=== PATIENT | female | born 1970 | race American Indian/Alaskan Native ===

== ENCOUNTER 2018-03-11 06:42 | Emergency (ER) | payer MEDICAID ==
[2018-03-11 07:19] VITALS: BP 144/98
[2018-03-11 07:51] LABS: Basophils # (Auto) 0.1 K/mm3 (0.0-0.1); Eosinophils # (Auto) 0.1 K/mm3 (0.0-0.4); Eosinophils % (Auto) 0.9 % (0.0-4.3); Hematocrit 42.1 % (30.3-42.9); Lymphocytes # (Auto) 1.6 K/mm3 (1.2-5.4); Mean Corpuscular HGB Conc 33 % (30-34); Mean Corpuscular Hemoglobin 28 pg (28-32); Mean Corpuscular Volume 85 fl (79-97); Monocytes # (Auto) 0.5 K/mm3 (0.0-0.8); Monocytes % (Auto) 6.7 % (0.0-7.3); Platelet Count 262 K/mm3 (140-440); Red Blood Count 4.96 M/mm3 (3.65-5.03); Red Cell Distribution Width 14.1 % (13.2-15.2)
[2018-03-11 08:23] LABS: Bacteria,Urine 1+ /HPF (Negative); Bilirubin,Urine NEG (Negative); Blood,Urine NEG (Negative); Color,Urine Yellow (Yellow); Mucus,Urine FEW /HPF; Protein,Urine <15 mg/dL mg/dL (Negative)
[2018-03-11 08:46] LABS: Alanine Aminotransferase 21 units/L (7-56); Albumin 3.5 g/dL (3.9-5); BUN/Creatinine Ratio 9; Blood Urea Nitrogen 7 mg/dL (7-17); Calcium 8.6 mg/dL (8.4-10.2); Hemolysis Index 5; Lipase 15 units/L (13-60)
[2018-03-11] MEDS ORDERED: ZOFRAN ODT PO ONE (09:20)
[2018-03-11] MEDS ORDERED: LEVAQUIN PO ONE (09:20)
--- NOTE | 2018-03-11 09:24 | Emergency Department Report ---
ED General Adult HPI - General Chief complaint: Hyperglycemia Stated complaint: SUGAR HIGH Time Seen by Provider: 03/11/18 08:55 Source: patient Mode of arrival: Ambulatory Limitations: No Limitations - History of Present Illness Initial comments: Patient is a 47 year-old female who is presenting with fatigue and nausea with lower abdominal and back cramping discomfort for approximately 1 week. Patient denies dysuria but states there is some urinary frequency. Patient has some aching in her lower back and some mild suprapubic discomfort. Patient denies any diarrhea fevers chills cough congestion at this time. Patient states the lower abdominal and back crampiness is 4 out of 10 in severity. Patient is diabetic so she's been taking her medicines as prescribed. - Related Data Home Medications Medication Instructions Recorded Confirmed Last Taken Insulin Glargine [Lantus] 18 unit SUB-Q QHS 09/18/14 01/04/16 07/22/15 22:00 Insulin Lispro [Humalog] 10 unit SQ AC 09/18/14 01/04/16 07/23/15 09:00 Lisinopril [Zestril] 20 mg PO QDAY 09/18/14 01/04/16 09/26/15 Levothyroxine [Synthroid] 150 mcg PO QAM 08/17/15 01/10/16 01/10/16 08:00 Simvastatin [Zocor TAB] 20 mg PO QHS 08/17/15 01/04/16 09/27/15 Previous Rx's Medication Instructions Recorded Last Taken Type Ferrous Sulfate [Feosol 325 MG tab] 325 mg PO BID #60 tablet 09/28/15 01/09/16 Rx Ibuprofen [Motrin 600 MG tab] 600 mg PO Q8H PRN #30 tablet 01/11/16 Unknown Rx oxyCODONE /ACETAMINOPHEN [Percocet 1 tab PO Q6HR PRN #30 tablet 01/11/16 Unknown Rx 5/325] Sulfamethoxazole/Trimethoprim 1 each PO BID #14 tablet 01/23/16 Unknown Rx [Bactrim DS TAB] traMADol [Ultram] 50 mg PO Q8HR PRN #15 tablet 01/23/16 Unknown Rx Ciprofloxacin HCl [Cipro] 500 mg PO BID #14 tablet 03/11/18 Unknown Rx Ibuprofen [Motrin] 600 mg PO Q8H PRN #20 tablet 03/11/18 Unknown Rx traMADol [Ultram] 50 mg PO Q6HR PRN #10 tablet 03/11/18 Unknown Rx Allergies Allergy/AdvReac Type Severity Reaction Status Date / Time No Known Allergies Allergy Unverified 01/04/16 15:33 ED Review of Systems ROS: Stated complaint: SUGAR HIGH Other details as noted in HPI Comment: All other systems reviewed and negative ED Past Medical Hx - Past Medical History Previous Medical History?: Yes Hx Hypertension: Yes (x 2 years) Hx Diabetes: Yes (x 3 years) Hx GERD: Yes (past hx) Hx Renal Disease: No Hx Sickle Cell Disease: Yes (trait only) Hx Arthritis: Yes Hx Headaches / Migraines: Yes Hx Seizures: No Hx Asthma: No Additional medical history: THYROIDANEMIAGOITER - Surgical History Past Surgical History?: Yes Additional Surgical History: X 2. hysterectomy - Social History Smoking Status: Former Smoker Substance Use Type: Marijuana, Prescribed - Medications Home Medications: Home Medications Medication Instructions Recorded Confirmed Last Taken Type Insulin Glargine [Lantus] 18 unit SUB-Q QHS 09/18/14 01/04/16 07/22/15 22:00 History Insulin Lispro [Humalog] 10 unit SQ AC 09/18/14 01/04/16 07/23/15 09:00 History Lisinopril [Zestril] 20 mg PO QDAY 09/18/14 01/04/16 09/26/15 History Levothyroxine [Synthroid] 150 mcg PO QAM 08/17/15 01/10/16 01/10/16 08:00 History Simvastatin [Zocor TAB] 20 mg PO QHS 08/17/15 01/04/16 09/27/15 History Ferrous Sulfate [Feosol 325 MG tab] 325 mg PO BID #60 tablet 09/28/15 01/10/16 01/09/16 Rx Ibuprofen [Motrin 600 MG tab] 600 mg PO Q8H PRN #30 tablet 01/11/16 Unknown Rx oxyCODONE /ACETAMINOPHEN [Percocet 1 tab PO Q6HR PRN #30 tablet 01/11/16 Unknown Rx 5/325] Sulfamethoxazole/Trimethoprim 1 each PO BID #14 tablet 01/23/16 Unknown Rx [Bactrim DS TAB] traMADol [Ultram] 50 mg PO Q8HR PRN #15 tablet 01/23/16 Unknown Rx Ciprofloxacin HCl [Cipro] 500 mg PO BID #14 tablet 03/11/18 Unknown Rx Ibuprofen [Motrin] 600 mg PO Q8H PRN #20 tablet 03/11/18 Unknown Rx traMADol [Ultram] 50 mg PO Q6HR PRN #10 tablet 03/11/18 Unknown Rx ED Physical Exam - General Limitations: No Limitations General appearance: alert, in no apparent distress - Head Head exam: Present: atraumatic, normocephalic - Eye Eye exam: Present: normal appearance - ENT ENT exam: Present: mucous membranes moist - Neck Neck exam: Present: normal inspection - Respiratory Respiratory exam: Present: normal lung sounds bilaterally. Absent: respiratory distress, wheezes, rales, rhonchi - Cardiovascular Cardiovascular Exam: Present: regular rate, normal rhythm. Absent: systolic murmur, diastolic murmur, rubs, gallop - GI/Abdominal GI/Abdominal exam: Present: soft, normal bowel sounds. Absent: distended, tenderness, guarding, rebound - Extremities Exam Extremities exam: Present: normal inspection - Back Exam Back exam: Present: normal inspection - Neurological Exam Neurological exam: Present: alert, oriented X3 - Psychiatric Psychiatric exam: Present: normal affect, normal mood - Skin Skin exam: Present: warm, dry, intact, normal color. Absent: rash ED Course Vital Signs 03/11/18 07:15 Temperature 98.2 F Pulse Rate 68 Respiratory 18 Rate Blood Pressure 144/98 O2 Sat by Pulse 96 Oximetry ED Medical Decision Making - Lab Data Result diagrams: 03/11/18 07:30 03/11/18 07:30 Lab Results 03/11/18 03/11/18 03/11/18 Range/Units 07:25 07:30 07:30 WBC 8.1 (4.5-11.0) K/mm3 RBC 4.96 (3.65-5.03) M/mm3 Hgb 14.0 (10.1-14.3) gm/dl Hct 42.1 (30.3-42.9) % MCV 85 (79-97) fl MCH 28 (28-32) pg MCHC 33 (30-34) % RDW 14.1 (13.2-15.2) % Plt Count 262 (140-440) K/mm3 Lymph % (Auto) 20.0 (13.4-35.0) % [place] % (Auto) 6.7 (0.0-7.3) % Eos % (Auto) 0.9 (0.0-4.3) % Baso % (Auto) 1.0 (0.0-1.8) % Lymph # 1.6 (1.2-5.4) K/mm3 [place] # 0.5 (0.0-0.8) K/mm3 Eos # 0.1 (0.0-0.4) K/mm3 Baso # 0.1 (0.0-0.1) K/mm3 Seg Neutrophils % 71.4 H (40.0-70.0) % Seg Neutrophils # 5.8 (1.8-7.7) K/mm3 Sodium 138 (137-145) mmol/L Potassium 4.0 (3.6-5.0) mmol/L Chloride 102.4 (98-107) mmol/L Carbon Dioxide 30 (22-30) mmol/L Anion Gap 10 mmol/L BUN 7 (7-17) mg/dL Creatinine 0.8 (0.7-1.2) mg/dL Estimated GFR > 60 ml/min BUN/Creatinine Ratio 9 % Glucose 187 H (65-100) mg/dL POC Glucose 186 H (70-105) Calcium 8.6 (8.4-10.2) mg/dL Total Bilirubin 0.80 (0.1-1.2) mg/dL AST 25 (5-40) units/L ALT 21 (7-56) units/L Alkaline Phosphatase 66 (35-129) units/L Total Protein 7.3 (6.3-8.2) g/dL Albumin 3.5 L (3.9-5) g/dL Albumin/Globulin Ratio 0.9 % Lipase 15 (13-60) units/L Urine Color (Yellow) Urine Turbidity (Clear) Urine pH (5.0-7.0) Ur Specific [place] (1.003-1.030) Urine Protein (Negative) mg/dL Urine Glucose (UA) (Negative) mg/dL Urine Ketones (Negative) mg/dL Urine Blood (Negative) Urine Nitrite (Negative) Urine Bilirubin (Negative) Urine Urobilinogen (<2.0) mg/dL Ur Leukocyte Esterase (Negative) Urine WBC (Auto) (0.0-6.0) /HPF Urine RBC (Auto) (0.0-6.0) /HPF U Epithel Cells (Auto) (0-13.0) /HPF Urine Bacteria (Auto) (Negative) /HPF Urine Mucus /HPF 03/11/18 Range/Units 08:04 WBC (4.5-11.0) K/mm3 RBC (3.65-5.03) M/mm3 Hgb (10.1-14.3) gm/dl Hct (30.3-42.9) % MCV (79-97) fl MCH (28-32) pg MCHC (30-34) % RDW (13.2-15.2) % Plt Count (140-440) K/mm3 Lymph % (Auto) (13.4-35.0) % [place] % (Auto) (0.0-7.3) % Eos % (Auto) (0.0-4.3) % Baso % (Auto) (0.0-1.8) % Lymph # (1.2-5.4) K/mm3 [place] # (0.0-0.8) K/mm3 Eos # (0.0-0.4) K/mm3 Baso # (0.0-0.1) K/mm3 Seg Neutrophils % (40.0-70.0) % Seg Neutrophils # (1.8-7.7) K/mm3 Sodium (137-145) mmol/L Potassium (3.6-5.0) mmol/L Chloride (98-107) mmol/L Carbon Dioxide (22-30) mmol/L Anion Gap mmol/L BUN (7-17) mg/dL Creatinine (0.7-1.2) mg/dL Estimated GFR ml/min BUN/Creatinine Ratio % Glucose (65-100) mg/dL POC Glucose (70-105) Calcium (8.4-10.2) mg/dL Total Bilirubin (0.1-1.2) mg/dL AST (5-40) units/L ALT (7-56) units/L Alkaline Phosphatase (35-129) units/L Total Protein (6.3-8.2) g/dL Albumin (3.9-5) g/dL Albumin/Globulin Ratio % Lipase (13-60) units/L Urine Color Yellow (Yellow) Urine Turbidity Clear (Clear) Urine pH 7.0 (5.0-7.0) Ur Specific [place] 1.012 (1.003-1.030) Urine Protein <15 mg/dl (Negative) mg/dL Urine Glucose (UA) Neg (Negative) mg/dL Urine Ketones Tr (Negative) mg/dL Urine Blood Neg (Negative) Urine Nitrite Neg (Negative) Urine Bilirubin Neg (Negative) Urine Urobilinogen 2.0 (<2.0) mg/dL Ur Leukocyte Esterase Tr (Negative) Urine WBC (Auto) 11.0 H (0.0-6.0) /HPF Urine RBC (Auto) 2.0 (0.0-6.0) /HPF U Epithel Cells (Auto) 1.0 (0-13.0) /HPF Urine Bacteria (Auto) 1+ (Negative) /HPF Urine Mucus Few /HPF - Medical Decision Making Patient be treated for UTI and be discharged home. Critical care attestation.: If time is entered above; I have spent that time in minutes in the direct care of this critically ill patient, excluding procedure time. ED Disposition Clinical Impression: Acute cystitis Qualifiers: Hematuria presence: without hematuria Qualified Code(s): N30.00 - Acute cystitis without hematuria Disposition: TO HOME OR SELFCARE Is pt being admited?: No Does the pt Need Aspirin: No Condition: Stable Instructions: Urinary Tract Infection in Women (ED) Referrals: PRIMARY CARE, [Primary Care Provider] - 3-5 Days
== END 2018-03-11 09:44 | disposition home or self-care (01) ==
LOC: ED 06:42
DX: N30.00 Acute cystitis without hematuria (principal); E11.65 Type 2 diabetes mellitus with hyperglycemia; Z79.4 Long term (current) use of insulin; I10 Essential (primary) hypertension; Z90.710 Acquired absence of both cervix and uterus; K21.9 Gastro-esophageal reflux disease without esophagitis; Z87.891 Personal history of nicotine dependence
CPT/HCPCS: 36415; 80053; 81001; 82962; 83690; 85025; 99283; Q0162

== ENCOUNTER 2018-06-15 16:41 | Emergency (ER) | payer MEDICAID ==
[2018-06-15 17:58] LABS: Basophils # (Auto) 0.1 K/mm3 (0.0-0.1); Basophils % (Auto) 0.6 % (0.0-1.8); Eosinophils % (Auto) 0.3 % (0.0-4.3); Hematocrit 44.1 % (30.3-42.9); Hemoglobin 14.6 gm/dl (10.1-14.3); Lymphocytes # (Auto) 1.2 K/mm3 (1.2-5.4); Lymphocytes % (Auto) 12.1 % (13.4-35.0); Mean Corpuscular HGB Conc 33 % (30-34); Mean Corpuscular Hemoglobin 29 pg (28-32); Mean Corpuscular Volume 88 fl (79-97); Monocytes # (Auto) 0.5 K/mm3 (0.0-0.8); Monocytes % (Auto) 5.4 % (0.0-7.3); Platelet Count 199 K/mm3 (140-440); Red Cell Distribution Width 13.8 % (13.2-15.2)
[2018-06-15 18:05] LABS: BUN/Creatinine Ratio 11; Blood Urea Nitrogen 11 mg/dL (7-17); Calcium 9.8 mg/dL (8.4-10.2); Hemolysis Index 5
[2018-06-15 18:06] LABS: Bacteria,Urine 1+ /HPF (Negative); Bilirubin,Urine NEG (Negative); Blood,Urine NEG (Negative); Color,Urine Yellow (Yellow); Mucus,Urine FEW /HPF; Protein,Urine <15 mg/dL mg/dL (Negative); Urobilinogen,Urine < 2.0 mg/dL (<2.0)
[2018-06-15] MEDS ORDERED: HumuLIN R IV ONE ×2 (21:01→23:53)
[2018-06-15] MEDS ORDERED: KEFLEX PO ONE (21:02)
[2018-06-15] MEDS ORDERED: NACL 0.9% 1000 ML 1,000 ML IV ONE ×2 (21:02→23:54)
[2018-06-15] MEDS ORDERED: ZOFRAN IV ONE (21:02)
--- NOTE | 2018-06-15 22:21 | Emergency Department Report ---
ED General Adult HPI - General Chief complaint: Hyperglycemia Stated complaint: DIABETES Time Seen by Provider: 06/15/18 20:52 Source: patient Mode of arrival: Ambulatory Limitations: No Limitations - History of Present Illness Initial comments: 48-year-old female with a past medical history of diabetes currently on insulin and other medical problems presents to the hospital complaints of elevated blood glucose and increased urinary frequency since running out of her insulin 2 days ago. Patient complains of some dysuria. Positive nausea with several episodes of vomiting earlier today. She denies fever or pain. - Related Data Home Medications Medication Instructions Recorded Confirmed Last Taken Lisinopril [Zestril] 20 mg PO QDAY 09/18/14 06/16/18 09/26/15 Levothyroxine [Synthroid] 150 mcg PO QAM 08/17/15 06/16/18 01/10/16 08:00 Simvastatin [Zocor TAB] 20 mg PO QHS 08/17/15 06/16/18 09/27/15 Previous Rx's Medication Instructions Recorded Last Taken Type Ferrous Sulfate [Feosol 325 MG tab] 325 mg PO BID #60 tablet 09/28/15 01/09/16 Rx oxyCODONE /ACETAMINOPHEN [Percocet 1 tab PO Q6HR PRN #30 tablet 01/11/16 Unknown Rx 5/325] traMADol [Ultram] 50 mg PO Q6HR PRN #10 tablet 03/11/18 Unknown Rx Insulin Glargine [Lantus VIAL] 18 unit SUB-Q QHS #30 day 06/16/18 Unknown Rx Insulin Lispro [HumaLOG VIAL] 10 unit SQ AC #30 day 06/16/18 Unknown Rx Syringe and Needle,Insulin,1Ml 1 each MC PRN #60 disp.syrin 06/16/18 Unknown Rx [Insulin Syringe/Needle 1 ML] cephALEXin [Keflex] 500 mg PO Q12HR #14 cap 06/16/18 Unknown Rx Allergies Allergy/AdvReac Type Severity Reaction Status Date / Time No Known Allergies Allergy Unverified 01/04/16 15:33 ED Review of Systems ROS: Stated complaint: DIABETES Other details as noted in HPI Comment: All other systems reviewed and negative ED Past Medical Hx - Past Medical History Hx Hypertension: Yes (x 2 years) Hx Diabetes: Yes (x 3 years) Hx GERD: Yes (past hx) Hx Renal Disease: No Hx Sickle Cell Disease: Yes (trait only) Hx Arthritis: Yes Hx Headaches / Migraines: Yes Hx Seizures: No Hx Asthma: No Additional medical history: THYROIDANEMIAGOITER - Surgical History Additional Surgical History: X 2. hysterectomy - Social History Smoking Status: Never Smoker Substance Use Type: None - Medications Home Medications: Home Medications Medication Instructions Recorded Confirmed Last Taken Type Lisinopril [Zestril] 20 mg PO QDAY 09/18/14 06/16/18 09/26/15 History Levothyroxine [Synthroid] 150 mcg PO QAM 08/17/15 06/16/18 01/10/16 08:00 History Simvastatin [Zocor TAB] 20 mg PO QHS 08/17/15 06/16/18 09/27/15 History Ferrous Sulfate [Feosol 325 MG tab] 325 mg PO BID #60 tablet 09/28/15 06/16/18 01/09/16 Rx oxyCODONE /ACETAMINOPHEN [Percocet 1 tab PO Q6HR PRN #30 tablet 01/11/16 Unknown Rx 5/325] traMADol [Ultram] 50 mg PO Q6HR PRN #10 tablet 03/11/18 06/16/18 Unknown Rx Insulin Glargine [Lantus VIAL] 18 unit SUB-Q QHS #30 day 06/16/18 Unknown Rx Insulin Lispro [HumaLOG VIAL] 10 unit SQ AC #30 day 06/16/18 Unknown Rx Syringe and Needle,Insulin,1Ml 1 each MC PRN #60 disp.syrin 06/16/18 Unknown Rx [Insulin Syringe/Needle 1 ML] cephALEXin [Keflex] 500 mg PO Q12HR #14 cap 06/16/18 Unknown Rx ED Physical Exam - General Limitations: No Limitations - Other Other exam information: General: No limitations, patient is alert in no acute distress Head exam: Atraumatic, normocephalic Eyes exam: Normal appearance, pupils equal reactive to light, extraocular movements intact ENT: Moist mucous membrane, poor dentition Neck exam: thyromegaly, nontender. She also has a large circular mass to angle of the jaw and neck area. This is nontender. No stridor or difficulty swallowing secretions Respiratory exam: Clear to auscultation bilateral, no wheezes, rales, crackles Cardiovascular: Normal rate and rhythm, normal heart sounds Abdomen: Soft, nondistended, and nontender, with normal bowel sounds, no rebound, or guarding Extremity: Full range of motion normal inspection no deformity Back: Normal Inspection, full range of motion, no tenderness Neurologic: Alert, oriented x3, cranial nerves intact, no motor or sensory deficit Psychiatric: normal affect, normal mood Skin: Warm, dry, intact ED Course Vital Signs 06/15/18 06/15/18 06/15/18 17:30 21:20 21:38 Temperature 98.8 F Pulse Rate 81 60 55 L Respiratory 16 17 14 Rate Blood Pressure 132/92 Blood Pressure [Left] O2 Sat by Pulse 100 98 98 Oximetry 06/15/18 06/15/18 06/15/18 21:41 21:45 22:00 Temperature Pulse Rate 93 H 54 L 58 L Respiratory 16 15 9 L Rate Blood Pressure 138/78 129/75 Blood Pressure 118/75 [Left] O2 Sat by Pulse 99 99 97 Oximetry 06/15/18 06/15/18 06/15/18 22:15 22:30 22:42 Temperature Pulse Rate 75 60 60 Respiratory 16 11 L 15 Rate Blood Pressure 139/69 139/69 139/69 Blood Pressure [Left] O2 Sat by Pulse 97 99 98 Oximetry 06/15/18 06/15/18 06/15/18 22:46 23:00 23:16 Temperature Pulse Rate 61 72 96 H Respiratory 13 13 22 Rate Blood Pressure 139/69 139/69 139/69 Blood Pressure [Left] O2 Sat by Pulse 99 99 97 Oximetry 06/15/18 06/15/18 06/16/18 23:30 23:46 00:00 Temperature Pulse Rate 62 68 65 Respiratory 14 13 14 Rate Blood Pressure 139/69 136/83 131/83 Blood Pressure [Left] O2 Sat by Pulse 96 Oximetry 06/16/18 06/16/18 06/16/18 00:15 00:30 00:46 Temperature Pulse Rate 70 71 62 Respiratory 14 14 15 Rate Blood Pressure 123/79 119/75 129/76 Blood Pressure [Left] O2 Sat by Pulse Oximetry 06/16/18 01:00 Temperature Pulse Rate 72 Respiratory 14 Rate Blood Pressure 123/68 Blood Pressure [Left] O2 Sat by Pulse Oximetry ED Medical Decision Making - Lab Data Result diagrams: 06/15/18 17:42 06/15/18 17:42 Lab Results 06/15/18 06/15/18 06/15/18 Range/Units 17:00 17:42 17:42 WBC 9.9 (4.5-11.0) K/mm3 RBC 5.00 (3.65-5.03) M/mm3 Hgb 14.6 H (10.1-14.3) gm/dl Hct 44.1 H (30.3-42.9) % MCV 88 (79-97) fl MCH 29 (28-32) pg MCHC 33 (30-34) % RDW 13.8 (13.2-15.2) % Plt Count 199 (140-440) K/mm3 Lymph % (Auto) 12.1 L (13.4-35.0) % [place] % (Auto) 5.4 (0.0-7.3) % Eos % (Auto) 0.3 (0.0-4.3) % Baso % (Auto) 0.6 (0.0-1.8) % Lymph # 1.2 (1.2-5.4) K/mm3 [place] # 0.5 (0.0-0.8) K/mm3 Eos # 0.0 (0.0-0.4) K/mm3 Baso # 0.1 (0.0-0.1) K/mm3 Seg Neutrophils % 81.6 H (40.0-70.0) % Seg Neutrophils # 8.1 H (1.8-7.7) K/mm3 VBG pH (7.320-7.420) Sodium (137-145) mmol/L Potassium (3.6-5.0) mmol/L Chloride (98-107) mmol/L Carbon Dioxide (22-30) mmol/L Anion Gap mmol/L BUN (7-17) mg/dL Creatinine (0.7-1.2) mg/dL Estimated GFR ml/min BUN/Creatinine Ratio % Glucose (65-100) mg/dL POC Glucose 451 H (70-105) Calcium (8.4-10.2) mg/dL Urine Color Yellow (Yellow) Urine Turbidity Clear (Clear) Urine pH 6.0 (5.0-7.0) Ur Specific [place] 1.022 (1.003-1.030) Urine Protein <15 mg/dl (Negative) mg/dL Urine Glucose (UA) >=500 (Negative) mg/dL Urine Ketones 20 (Negative) mg/dL Urine Blood Neg (Negative) Urine Nitrite Pos (Negative) Urine Bilirubin Neg (Negative) Urine Urobilinogen < 2.0 (<2.0) mg/dL Ur Leukocyte Esterase Tr (Negative) Urine WBC (Auto) 6.0 (0.0-6.0) /HPF Urine RBC (Auto) 6.0 (0.0-6.0) /HPF U Epithel Cells (Auto) 2.0 (0-13.0) /HPF Urine Bacteria (Auto) 1+ (Negative) /HPF Urine Mucus Few /HPF 06/15/18 06/15/18 Range/Units 17:42 17:42 WBC (4.5-11.0) K/mm3 RBC (3.65-5.03) M/mm3 Hgb (10.1-14.3) gm/dl Hct (30.3-42.9) % MCV (79-97) fl MCH (28-32) pg MCHC (30-34) % RDW (13.2-15.2) % Plt Count (140-440) K/mm3 Lymph % (Auto) (13.4-35.0) % [place] % (Auto) (0.0-7.3) % Eos % (Auto) (0.0-4.3) % Baso % (Auto) (0.0-1.8) % Lymph # (1.2-5.4) K/mm3 [place] # (0.0-0.8) K/mm3 Eos # (0.0-0.4) K/mm3 Baso # (0.0-0.1) K/mm3 Seg Neutrophils % (40.0-70.0) % Seg Neutrophils # (1.8-7.7) K/mm3 VBG pH 7.382 (7.320-7.420) Sodium 133 L (137-145) mmol/L Potassium 3.8 (3.6-5.0) mmol/L Chloride 89.7 L (98-107) mmol/L Carbon Dioxide 28 (22-30) mmol/L Anion Gap 19 mmol/L BUN 11 (7-17) mg/dL Creatinine 1.0 (0.7-1.2) mg/dL Estimated GFR > 60 ml/min BUN/Creatinine Ratio 11 % Glucose 551 H* (65-100) mg/dL POC Glucose (70-105) Calcium 9.8 (8.4-10.2) mg/dL Urine Color (Yellow) Urine Turbidity (Clear) Urine pH (5.0-7.0) Ur Specific [place] (1.003-1.030) Urine Protein (Negative) mg/dL Urine Glucose (UA) (Negative) mg/dL Urine Ketones (Negative) mg/dL Urine Blood (Negative) Urine Nitrite (Negative) Urine Bilirubin (Negative) Urine Urobilinogen (<2.0) mg/dL Ur Leukocyte Esterase (Negative) Urine WBC (Auto) (0.0-6.0) /HPF Urine RBC (Auto) (0.0-6.0) /HPF U Epithel Cells (Auto) (0-13.0) /HPF Urine Bacteria (Auto) (Negative) /HPF Urine Mucus /HPF - Medical Decision Making Hyperglycemia Secondary to medication noncompliance No signs of DKA Improvement normal saline and insulin UTI No signs of sepsis By mouth Keflex Meds will be prescribed Left neck mass Patient has been noncompliant with her outpatient follow-up She does not know that her diagnoses and missed her biopsy appointment with [facility] Requesting alternative follow-up providers. - Differential Diagnosis DKA, hyperglycemia, medication compliance, UTI Critical Care Time: No Critical care attestation.: If time is entered above; I have spent that time in minutes in the direct care of this critically ill patient, excluding procedure time. ED Disposition Clinical Impression: Uncontrolled diabetes mellitus, Noncompliance with medication regimen, UTI ( urinary tract infection), Neck mass, Thyromegaly Disposition: [id number] TO HOME OR SELFCARE Is pt being admited?: No Does the pt Need Aspirin: No Condition: Stable Instructions: Urinary Tract Infection in Women (ED), Diabetes Mellitus Type 2 in Adults (ED) Additional Instructions: Take the medication as prescribed. Follow up with your doctor. Return if symptoms worsen as indicated by your discharge instructions Prescriptions: cephALEXin [Keflex] 500 mg PO Q12HR #14 cap Insulin Glargine [Lantus VIAL] 18 unit SUB-Q QHS #30 day Insulin Lispro [HumaLOG VIAL] 10 unit SQ AC #30 day Syringe and Needle,Insulin,1Ml [Insulin Syringe/Needle 1 ML] 1 each PRN #60 disp.radhain Referrals: [facility] [Provider Group] - 3-5 Days [facility] [Outside] - 3-5 Days Time of Disposition: 02:01
[2018-06-16 02:08] VITALS: BP 119/73
== END 2018-06-16 03:38 | disposition home or self-care (01) ==
LOC: ED 16:41
DX: E11.65 Type 2 diabetes mellitus with hyperglycemia (principal); I10 Essential (primary) hypertension; K21.9 Gastro-esophageal reflux disease without esophagitis; D57.1 Sickle-cell disease without crisis; M19.90 Unspecified osteoarthritis, unspecified site; G43.909 Migraine, unspecified, not intractable, without status migrainosus; Z90.710 Acquired absence of both cervix and uterus; Z79.899 Other long term (current) drug therapy
CPT/HCPCS: 36415; 80048; 81001; 82805; 82962; 85025; 96361; 96374; 96375; 96376; 99284; J2405; J7030; J1815

== ENCOUNTER 2021-02-09 16:56 | Emergency (ER) | payer MEDICAID, MEDICARE ==
[2021-02-09] MEDS ORDERED: SODIUM CHLORIDE 0.9% 1000 ML 1,000 ML IV ONE ×2 (21:49)
[2021-02-09] MEDS ORDERED: ONDANSETRON 4 MG/2 ML INJ IV ONE (21:49)
[2021-02-09] MEDS ORDERED: FAMOTIDINE 20 MG/2 ML INJ IV ONE (21:49)
[2021-02-09 22:09] LABS: Basophils # (Auto) 0.1 K/mm3 (0.0-0.1); Basophils % (Auto) 1.2 % (0.0-1.8); Eosinophils # (Auto) 0.1 K/mm3 (0.0-0.4); Eosinophils % (Auto) 1.3 % (0.0-4.3); Hemoglobin 13.4 gm/dl (10.1-14.3); Lymphocytes % (Auto) 22.6 % (13.4-35.0); Mean Corpuscular HGB Conc 34 % (30-34); Mean Corpuscular Volume 88 fl (79-97); Monocytes # (Auto) 0.3 K/mm3 (0.0-0.8); Monocytes % (Auto) 5.8 % (0.0-7.3); Platelet Count 142 K/mm3 (140-440); Red Blood Count 4.54 M/mm3 (3.65-5.03); Red Cell Distribution Width 14.1 % (13.2-15.2)
[2021-02-09 22:30] LABS: Alanine Aminotransferase 53 units/L (7-56); Albumin 4.1 g/dL (3.9-5); BUN/Creatinine Ratio 10; Blood Urea Nitrogen 8 mg/dL (7-17); Calcium 9.2 mg/dL (8.4-10.2); Hemolysis Index 4
[2021-02-09] MEDS ORDERED: hydrALAZINE 20 MG/1 ML INJ IV ONE (23:15)
--- NOTE | 2021-02-09 23:17 | Emergency Department Report ---
ED General Adult HPI - General Chief complaint: Hyperglycemia Stated complaint: DIABETES PUI?: No Time Seen by Provider: 02/09/21 22:59 Source: patient Mode of arrival: Ambulatory Limitations: No Limitations - History of Present Illness Initial comments: Patient is a 50-year-old female that presents emergency room with complaints of elevated blood sugars and elevated blood blood pressure. Patient denies chest pain. Patient denies shortness of breath. Patient denies nausea vomiting. Patient denies pain. Patient states that she ran out of her medications 2 to 3 days ago. Patient states she just moved here from [place]. Patient states she has not found a primary care or somebody to manage her blood pressure and diabe zay. Patient states that her blood sugars are worsening. Patient dates her blood pressure is worsening. Patient denies headache. Patient denies blurry vision. Patient denies fever and chills. Patient also complains of edema to the bilateral lower extremities. Patient denies pain in legs. Patient denies calf tenderness. Patient states swelling been going on for about 1.5 months ago. Patient states the pain swelling is better with rest and elevation. Patient states swelling is worse with leaving it low. Patient denies recent travel. Patient denies recent international travel. Sangeeta ent denies exposure to the novel coronavirus. Patient denies sick contacts. Patient denies fever and chills. Patient denies cough. Patient denies diarrhea. Patient denies coming in contact with anybody with symptoms of the novel coronavirus. -: Sudden Severity scale (0 -10): 0 - Related Data Home Medications Medication Instructions Recorded Confirmed Last Taken lisinopriL [Zestril] 20 mg PO QDAY 09/18/14 06/16/18 09/26/15 Levothyroxine [Synthroid] 150 mcg PO QAM 08/17/15 06/16/18 01/10/16 08:00 Simvastatin (Nf) [Zocor TAB] 20 mg PO QHS 08/17/15 06/16/18 09/27/15 Previous Rx's Medication Instructions Recorded Last Taken Type Ferrous Sulfate [Feosol 325 MG tab] 325 mg PO BID #60 tablet 09/28/15 01/09/16 Rx oxyCODONE /ACETAMINOPHEN [Percocet 1 tab PO Q6HR PRN #30 tablet 01/11/16 Unknown Rx 5/325] traMADoL [Ultram] 50 mg PO Q6HR PRN #10 tablet 03/11/18 Unknown Rx Insulin Lispro [HumaLOG VIAL] 10 unit SQ AC #30 day 06/16/18 Unknown Rx cephALEXin [Keflex] 500 mg PO Q12HR #14 cap 06/16/18 Unknown Rx Gabapentin 300 mg PO TID #60 cap 02/10/21 Unknown Rx Insulin Aspart (Nf) [Novolog] 10 unit SQ AC #1 vial 02/10/21 Unknown Rx Insulin Glargine [Lantus VIAL] 22 unit SUB-Q QHS #30 day 02/10/21 Unknown Rx Lisinopril/Hydrochlorothiazide 1 tab PO QDAY #15 tab 02/10/21 Unknown Rx [Zestoretic 20-25 mg] Syringe and Needle,Insulin,1Ml 1 each MC PRN #60 disp.syrin 02/10/21 Unknown Rx [Insulin Syringe/Needle 1 ML] Allergies Allergy/AdvReac Type Severity Reaction Status Date / Time No Known Allergies Allergy Verified 02/09/21 17:18 ED Review of Systems ROS: Stated complaint: DIABETES Other details as noted in HPI ED Past Medical Hx - Past Medical History Hx Hypertension: Yes (x 2 years) Hx Diabetes: Yes (x 3 years) Hx GERD: Yes (past hx) Hx Renal Disease: No Hx Sickle Cell Disease: Yes (trait only) Hx Arthritis: Yes Hx Headaches / Migraines: Yes Hx Seizures: No Hx Asthma: No Additional medical history: THYROIDANEMIAGOITER - Surgical History Additional Surgical History: X 2. hysterectomy - Social History Smoking Status: Never Smoker Substance Use Type: None - Medications Home Medications: Home Medications Medication Instructions Recorded Confirmed Last Taken Type lisinopriL [Zestril] 20 mg PO QDAY 09/18/14 06/16/18 09/26/15 History Levothyroxine [Synthroid] 150 mcg PO QAM 08/17/15 06/16/18 01/10/16 08:00 History Simvastatin (Nf) [Zocor TAB] 20 mg PO QHS 08/17/15 06/16/18 09/27/15 History Ferrous Sulfate [Feosol 325 MG tab] 325 mg PO BID #60 tablet 09/28/15 06/16/18 01/09/16 Rx oxyCODONE /ACETAMINOPHEN [Percocet 1 tab PO Q6HR PRN #30 tablet 01/11/1606/16 Unknown Rx 5/325] traMADoL [Ultram] 50 mg PO Q6HR PRN #10 tablet 03/11/18 06/16/18 Unknown Rx Insulin Lispro [HumaLOG VIAL] 10 unit SQ AC #30 day 06/16/18 Unknown Rx cephALEXin [Keflex] 500 mg PO Q12HR #14 cap 06/16/18 Unknown Rx Gabapentin 300 mg PO TID #60 cap 02/10/21 Unknown Rx Insulin Aspart (Nf) [Novolog] 10 unit SQ AC #1 vial 02/10/21 Unknown Rx Insulin Glargine [Lantus VIAL] 22 unit SUB-Q QHS #30 day 02/10/21 Unknown Rx Lisinopril/Hydrochlorothiazide 1 tab PO QDAY #15 tab 02/10/21 Unknown Rx [Zestoretic 20-25 mg] Syringe and Needle,Insulin,1Ml 1 each MC PRN #60 disp.syrin 02/10/21 Unknown Rx [Insulin Syringe/Needle 1 ML] ED Physical Exam - General Limitations: No Limitations ED Course Vital Signs 02/09/21 02/09/21 02/09/21 17:21 17:22 22:54 Temperature 97.3 F L Pulse Rate 83 Respiratory 22 15 Rate Blood Pressure 179/109 O2 Sat by Pulse 95 99 Oximetry 02/09/21 02/09/21 02/09/21 23:01 23:15 23:25 Temperature Pulse Rate 79 78 80 Respiratory 12 11 L 9 L Rate Blood Pressure 179/113 179/113 179/113 O2 Sat by Pulse 99 100 99 Oximetry 02/09/21 02/09/21 02/10/21 23:30 23:45 00:06 Temperature Pulse Rate 77 89 Respiratory 14 13 Rate Blood Pressure 190/112 190/112 190/112 O2 Sat by Pulse 98 99 92 Oximetry 02/10/21 02/10/21 02/10/21 00:15 00:31 00:45 Temperature Pulse Rate 91 H 92 H 90 Respiratory 10 L 19 16 Rate Blood Pressure 190/112 157/107 157/107 O2 Sat by Pulse 99 99 98 Oximetry 02/10/21 02/10/21 01:01 01:15 Temperature Pulse Rate 86 82 Respiratory 14 10 L Rate Blood Pressure 159/103 159/103 O2 Sat by Pulse 97 99 Oximetry - Reevaluation(s) Reevaluation #1: Patient swelling has improved. Patient states he is feeling much better. Patient's blood pressure is better. Patient's lung sounds are clear. Patient states she needs a refill of medications. Patient states that she is taking Lantus 22 units at night, NovoLog 10 units before AC meals, lisinopril/HCTZ 20/25 daily, gabapentin 300 mg 3 times a day. 02/10/21 01:45 Reevaluation #2: I discussed all results and clinical findings with patient. I discussed plan of care with patient. Patient agrees with plan of care. Patient is stable for discharge. Patient will be discharged home. Patient given discharge instructions. Patient voiced understanding of discharge instructions. 02/10/21 02:02 ED Medical Decision Making - Lab Data Result diagrams: 02/09/21 21:57 02/09/21 21:57 - Medical Decision Making Patient is a 50-year-old female who presents emergency room with complaints of hyperglycemia,, uncontrolled diabetes, noncompliance, elevated blood pressure and lower extremity edema. Patient's edema is chronic. Patient found to have elevated blood glucose and the patient was given insulin and fluids. Patient's blood glucose improved. Patient is not in DKA. Patient refuses further work- up. Patient also found to have elevated blood pressure, patient was given hydralazine and blood pressure improved. Patient required multiple blood pressure checks. Patient responded well to treatment. Patient complained of chronic edema to lower extremity and edema improved with treatment. Patient urinating well in ER. Patient tolerated p.o. intake. Patient given a refill of her medications. Patient refills include lisinopril hydrochlorothiazide, gabapentin and insulin. Patient stable for discharge. Patient discharged home. Patient given referrals to porcelain enamel installer and primary care. Critical care time documented due to the multiple reassessments, prolonged time at the bedside, interpretation of diagnostics and labs. - Differential Diagnosis Hyperglycemia, noncompliance, dehydration, edema, Critical Care Time: Yes Critical care time in (mins) excluding proc time.: 35 Critical care attestation.: If time is entered above; I have spent that time in minutes in the direct care of this critically ill patient, excluding procedure time. Critical Care Time: 35 MINUTES ED Disposition Clinical Impression: Dehydration, Hyperglycemia, Noncompliance, Hypertensive urgency Diabetes Qualifiers: Diabetes mellitus type: type 2 Diabetes mellitus skilled nursing insulin use: with terminal gauger supervisor use Diabetes mellitus complication status: with other specified complication Qualified Code(s): E11.69 - Type 2 diabetes mellitus with other specified complication Edema Qualifiers: Edema type: unspecified Qualified Code(s): R60.9 - Edema, unspecified Hypertension Qualifiers: Hypertension type: essential hypertension Qualified Code(s): I10 - Essential (primary) hypertension Disposition: - TO HOME OR SELFCARE Is pt being admited?: No Does the pt Need Aspirin: No Condition: Stable Instructions: Type 2 Diabetes Mellitus, Diagnosis, Adult, Insulin Treatment for Diabetes Mellitus, Tips for Eating Away From Home If You Have Diabetes, Dehydration, Adult, [id number], Hyperglycemia, [id number], Type 2 Diabetes Mellitus, Self Care, Adult, [id number], Managing Your Hypertension, Diabetes Mellitus and Exercise, Diabetes Mellitus Type 2 in Adults (ED), Hypertension (ED) Additional Instructions: Patient to follow-up with primary care in 2 to 3 days. Patient to follow-up with porcelain enamel installer in 2 to 3 days. Patient to rest. Patient to increase water. Patient to eat a heart healthy diet. Patient is a low-salt diet. Patient to eat a diabetic diet. Patient to monitor blood pressure and blood glucose at home. Patient to keep a blood pressure and blood glucose log. Patient did take her blood pressure and blood glucose log to all follow-up appointments. Patient to take meds as directed. Patient to return to the ER if condition worsens, changes or new symptoms arise. Prescriptions: Insulin Glargine [Lantus VIAL] 22 unit SUB-Q QHS #30 day Gabapentin 300 mg PO TID #60 cap Syringe and Needle,Insulin,1Ml [Insulin Syringe/Needle 1 ML] 1 each PRN #60 disp.syrin Insulin Aspart (Nf) [Novolog] 10 unit SQ AC #1 vial Lisinopril/Hydrochlorothiazide [Zestoretic 20-25 mg] 1 tab PO QDAY #15 tab Referrals: PRIMARY CARE, [Primary Care Provider] - 2-3 Days MAGDA RUSSELL MD [Staff Physician] - 2-3 Days Time of Disposition: 02:16
[2021-02-09] MEDS ORDERED: INSULIN REGULAR, HUMAN 100 UNITS/1 ML IV ONE (23:21)
[2021-02-10 02:45] VITALS: BP 151/91
== END 2021-02-10 02:40 | disposition home or self-care (01) ==
LOC: ED 16:56
DX: E11.65 Type 2 diabetes mellitus with hyperglycemia (principal); I10 Essential (primary) hypertension; R60.9 Edema, unspecified; E86.0 Dehydration; Z91.19 Patient's noncompliance with other medical treatment and regimen; K21.9 Gastro-esophageal reflux disease without esophagitis; M19.91 Primary osteoarthritis, unspecified site; G43.909 Migraine, unspecified, not intractable, without status migrainosus; Z90.710 Acquired absence of both cervix and uterus; Z98.890 Other specified postprocedural states; Z79.4 Long term (current) use of insulin; Z79.899 Other long term (current) drug therapy
CPT/HCPCS: 36415; 80053; 82962; 85025; 96361; 96374; 96375; 99283; J0360; J2405; J7030; J1815

== ENCOUNTER 2021-06-14 18:35 | Inpatient (IN) | payer MEDICARE ==
--- NOTE | 2021-06-14 20:02 | Event Note ---
ED Screening Note ED Screening Note: pt states that her sugar has been going up and down for a week no appetite +cough +leg swelling +orthopnea no SOB no CP no n/v/d PMHx DM, HTN former smoker pt found to be hypoxic This initial assessment/diagnostic orders/clinical plan/treatment(s) is/are subject to change based on patients health status, clinical progression and re- assessment by fellow clinical providers in the ED. Further treatment and workup at subsequent clinical providers discretion. Patient/guardian urged not to elope from the ED as their condition may be serious if not clinically assessed and managed. Initial orders include: labs, ekg, cxr
--- NOTE | 2021-06-14 20:54 | XRay Report ---
CHEST PA AND LATERAL VIEWS INDICATION: cough, hypoxia. COMPARISON: 12/11/2015 FINDINGS: Support devices: None. Heart: Stable. Lungs/Pleura: There is diffuse bilateral airspace disease. IMPRESSION: 1. Diffuse bilateral airspace disease is concerning for viral pneumonia. Signer Name: Mukesh Viera MD Signed: 06/14/2021 8:49 PM Workstation Name: [id number]
[2021-06-14 20:59] LABS: Basophils % (Auto) 0.4 % (0.0-1.8); Eosinophils % (Auto) 0.1 % (0.0-4.3); Hematocrit 39.1 % (30.3-42.9); Lymphocytes # (Auto) 0.5 K/mm3 (1.2-5.4); Lymphocytes % (Auto) 11.4 % (13.4-35.0); Mean Corpuscular HGB Conc 33 % (30-34); Mean Corpuscular Volume 89 fl (79-97); Monocytes # (Auto) 0.2 K/mm3 (0.0-0.8); Monocytes % (Auto) 4.9 % (0.0-7.3); Platelet Count 207 K/mm3 (140-440); Red Blood Count 4.39 M/mm3 (3.65-5.03); Red Cell Distribution Width 14.5 % (13.2-15.2)
[2021-06-14] MEDS ORDERED: AZITHROMYCIN/NS 500 MG/250 ML 500 MG/250 ML BAG IV ONE (21:02)
[2021-06-14] MEDS ORDERED: cefTRIAXone/NS 2 GM/100 ML 2 GM/100 ML BAG IV ONE (21:02)
[2021-06-14 21:10] LABS: Alanine Aminotransferase 27 units/L (7-56); Albumin 3.5 g/dL (3.9-5); BUN/Creatinine Ratio 11; Blood Urea Nitrogen 9 mg/dL (7-17); Calcium 9.2 mg/dL (8.4-10.2); Hemolysis Index 11
[2021-06-14] MEDS ORDERED: ACETAMINOPHEN 325 MG TAB PO ONE (21:26)
[2021-06-14 21:41] LABS: C-Reactive Protein 9.4 mg/dL (0.00-1.30)
[2021-06-15] MEDS ORDERED: dexAMETHasone 4 MG/ML VIAL IV ONE (01:56)
--- NOTE | 2021-06-15 01:56 | Emergency Department Report ---
ED Shortness of Breath HPI - General Chief Complaint: Hyperglycemia Stated Complaint: DIABATIC Time Seen by Provider: 06/14/21 20:00 Source: patient Mode of arrival: Ambulatory Limitations: No Limitations - History of Present Illness Initial Comments: Patient is a 51-year-old female that presents emergency room with complaints of shortness of breath, cough, elevated blood sugar. Patient states that her shortness of breath and cough have been going on for 3 to 4 days. Patient states her shortness of breath is worsening. Patient dates her cough is worsening. Patient states that her shortness of breath is better with rest and worse with exertion. Patient denies fever and chills. Patient states she has not been tested for COVID-19. Patient states she has not been vaccinated against COVID-19. Patient also complains of elevated blood sugar and loss of appetite. States she is a type II diabetic. Patient states she is compliant with her medications but she is getting really high readings. Patient evaluated in triage and found to be hypoxic 83% on room air. Patient is currently on oxygen. Patient denies recent travel. Patient denies recent international travel. Patient denies exposure to the novel coronavirus. Patient denies sick contacts. Patient denies fever and chills. Patient denies loss of smell. Patient denies diarrhea. Patient denies coming in contact with anybody with symptoms of the novel coronavirus. Complaint: shortness of breath, cough -: Sudden Severity: severe Consistency: constant Improves With: rest Worsens With: exertion Associated Symptoms: cough Treatments Prior to Arrival: none - Related Data Home Oxygen Therapy: No Home Medications Medication Instructions Recorded Confirmed Last Taken lisinopriL [Zestril] 20 mg PO QDAY 09/18/14 06/16/18 09/26/15 Levothyroxine [Synthroid] 150 mcg PO QAM 08/17/15 06/16/18 01/10/16 08:00 Simvastatin (Nf) [Zocor TAB] 20 mg PO QHS 08/17/15 06/16/18 09/27/15 Previous Rx's Medication Instructions Recorded Last Taken Type Ferrous Sulfate [Feosol 325 MG tab] 325 mg PO BID #60 tablet 09/28/15 01/09/16 Rx oxyCODONE /ACETAMINOPHEN [Percocet 1 tab PO Q6HR PRN #30 tablet 01/11/16 Unknown Rx 5/325] traMADoL [Ultram] 50 mg PO Q6HR PRN #10 tablet 03/11/18 Unknown Rx Insulin Lispro [HumaLOG VIAL] 10 unit SQ AC #30 day 06/16/18 Unknown Rx cephALEXin [Keflex] 500 mg PO Q12HR #14 cap 06/16/18 Unknown Rx Gabapentin 300 mg PO TID #60 cap 02/10/21 Unknown Rx Insulin Aspart (Nf) [Novolog] 10 unit SQ AC #1 vial 02/10/21 Unknown Rx Insulin Glargine [Lantus VIAL] 22 unit SUB-Q QHS #30 day 02/10/21 Unknown Rx Lisinopril/Hydrochlorothiazide 1 tab PO QDAY #15 tab 02/10/21 Unknown Rx [Zestoretic 20-25 mg] Syringe and Needle,Insulin,1Ml 1 each MC PRN #60 disp.syrin 02/10/21 Unknown Rx [Insulin Syringe/Needle 1 ML] Allergies Allergy/AdvReac Type Severity Reaction Status Date / Time No Known Allergies Allergy Verified 06/14/21 19:54 ED Review of Systems ROS: Stated complaint: DIABATIC Other details as noted in HPI Constitutional: malaise. denies: chills, fever Eyes: denies: eye pain, eye discharge, vision change ENT: denies: ear pain, throat pain Respiratory: see HPI, cough, shortness of breath. denies: wheezing Cardiovascular: denies: chest pain, palpitations Endocrine: no symptoms reported Gastrointestinal: denies: abdominal pain, nausea, diarrhea Genitourinary: denies: urgency, dysuria, discharge Musculoskeletal: denies: back pain, joint swelling, arthralgia Skin: denies: rash, lesions Neurological: denies: headache, weakness, paresthesias Psychiatric: denies: anxiety, depression Hematological/Lymphatic: denies: easy bleeding, easy bruising ED Past Medical Hx - Past Medical History Previous Medical History?: Yes Hx Hypertension: Yes (x 2 years) Hx Diabetes: Yes (x 3 years) Hx GERD: Yes (past hx) Hx Renal Disease: No Hx Sickle Cell Disease: Yes (trait only) Hx Arthritis: Yes Hx Headaches / Migraines: Yes Hx Seizures: No Hx Asthma: No Additional medical history: THYROIDANEMIAGOITER - Surgical History Past Surgical History?: Yes Additional Surgical History: X 2. hysterectomy - Family History Family history: no significant - Social History Smoking Status: Never Smoker Substance Use Type: None - Medications Home Medications: Home Medications Medication Instructions Recorded Confirmed Last Taken Type lisinopriL [Zestril] 20 mg PO QDAY 09/18/14 06/16/18 09/26/15 History Levothyroxine [Synthroid] 150 mcg PO QAM 08/17/15 06/16/18 01/10/16 08:00 History Simvastatin (Nf) [Zocor TAB] 20 mg PO QHS 08/17/15 06/16/18 09/27/15 History Ferrous Sulfate [Feosol 325 MG tab] 325 mg PO BID #60 tablet 09/28/15 06/16/18 01/09/16 Rx oxyCODONE /ACETAMINOPHEN [Percocet 1 tab PO Q6HR PRN #30 tablet 01/11/16 06/16/18 Unknown Rx 5/325] traMADoL [Ultram] 50 mg PO Q6HR PRN #10 tablet 03/11/18 06/16/18 Unknown Rx Insulin Lispro [HumaLOG VIAL] 10 unit SQ AC #30 day 06/16/18 Unknown Rx cephALEXin [Keflex] 500 mg PO Q12HR #14 cap 06/16/18 Unknown Rx Gabapentin 300 mg PO TID #60 cap 02/10/21 Unknown Rx Insulin Aspart (Nf) [Novolog] 10 unit SQ AC #1 vial 02/10/21 Unknown Rx Insulin Glargine [Lantus VIAL] 22 unit SUB-Q QHS #30 day 02/10/21 Unknown Rx Lisinopril/Hydrochlorothiazide 1 tab PO QDAY #15 tab 02/10/21 Unknown Rx [Zestoretic 20-25 mg] Syringe and Needle,Insulin,1Ml 1 each MC PRN #60 disp.syrin 02/10/21 Unknown Rx [Insulin Syringe/Needle 1 ML] ED Physical Exam - General Limitations: No Limitations General appearance: alert, in no apparent distress - Head Head exam: Present: atraumatic, normocephalic - Eye Eye exam: Present: normal appearance - ENT ENT exam: Present: mucous membranes dry - Neck Neck exam: Present: normal inspection - Respiratory Respiratory exam: Present: normal lung sounds bilaterally. Absent: respiratory distress - Cardiovascular Cardiovascular Exam: Present: regular rate, normal rhythm. Absent: systolic murmur, diastolic murmur, rubs, gallop - GI/Abdominal GI/Abdominal exam: Present: soft, normal bowel sounds - Extremities Exam Extremities exam: Present: normal inspection - Back Exam Back exam: Present: normal inspection - Neurological Exam Neurological exam: Present: alert, oriented X3 - Psychiatric Psychiatric exam: Present: normal affect, normal mood - Skin Skin exam: Present: warm, dry, intact, normal color. Absent: rash ED Course Vital Signs 06/14/21 06/14/21 06/14/21 19:46 20:10 22:02 Temperature 98.7 F Pulse Rate 91 H 89 Respiratory 18 18 18 Rate Blood Pressure Blood Pressure 130/85 [Left] O2 Sat by Pulse 83 L 95 Oximetry 06/14/21 06/15/21 06/15/21 23:02 01:02 03:44 Temperature Pulse Rate 82 Respiratory 18 18 Rate Blood Pressure Blood Pressure [Left] O2 Sat by Pulse 96 100 Oximetry 06/15/21 06/15/21 06/15/21 03:46 03:59 04:00 Temperature Pulse Rate 82 Respiratory 20 Rate Blood Pressure Blood Pressure 132/66 [Left] O2 Sat by Pulse 99 95 96 Oximetry 06/15/21 06/15/21 06/15/21 04:08 04:24 04:30 Temperature Pulse Rate Respiratory 20 Rate Blood Pressure Blood Pressure [Left] O2 Sat by Pulse 94 70 L 94 Oximetry 06/15/21 06/15/21 06/15/21 04:41 04:46 05:00 Temperature Pulse Rate 88 88 Respiratory 20 13 17 Rate Blood Pressure 154/89 154/96 Blood Pressure 154/89 [Left] O2 Sat by Pulse 95 96 97 Oximetry - Reevaluation(s) Reevaluation #1: Patient is evaluation done in our acute waiting room holding area. Patient will be placed on a mobile superintendent seed mill. Patient's Covid panel has been done. Patient has received Rocephin and Zithromax. Decadron will be ordered. 06/15/21 01:55 Reevaluation #2: I discussed all results with patient. I discussed plan of care with patient. Patient agrees with plan of care and admission. Patient to be admitted to the hospitalist service. 06/15/21 02:34 - Consultations Consultation #1: Hospitalist consulted for admission. Hospitalist to admit patient. 06/15/21 02:34 ED Medical Decision Making - Lab Data Result diagrams: 06/14/21 20:28 06/14/21 20:28 - EKG Data -: EKG Interpreted by Me EKG shows normal: sinus rhythm, axis, intervals, QRS complexes, ST-T waves Rate: normal - Radiology Data Radiology results: report reviewed, image reviewed interpreted by me: Chest x-ray: Bilateral pneumonia, no pneumothorax, no foreign body, no osseous findings, CHEST PA AND LATERAL VIEWS INDICATION: cough, hypoxia. COMPARISON: 12/11/2015 FINDINGS: Support devices: None. Heart: Stable. Lungs/Pleura: There is diffuse bilateral airspace disease. IMPRESSION: 1. Diffuse bilateral airspace disease is concerning for viral pneumonia. - Medical Decision Making Patient is a 51-year-old female who presents emergency room with complaints of breath, cough and hyperglycemia. Patient in triage found to be hypoxic and was placed on 4 L of oxygen improved her oxygen saturation. Patient had labs done. Patient's labs show an elevated inflammatory markers and hyperglycemia. Patient is not in DKA. Patient had a chest x-ray done which shows bilateral pneumonia. I personally reviewed the chest x-ray. Patient had an EKG which shows a normal sinus rhythm and no ST changes. I personally reviewed EKG. Patient findings are concerning for COVID-19, pneumonia and respiratory failure. Patient given Decadron, Rocephin and Zithromax. patient admitted to the hospitalist service for further evaluation treatment. . Critical care time documented due to the multiple reassessments, prolonged time at the bedside, interpretation of diagnostics and labs. - Differential Diagnosis PUI, Covid, hypoxia, shortness of breath, cough Critical Care Time: Yes Critical care time in (mins) excluding proc time.: 35 Critical care attestation.: If time is entered above; I have spent that time in minutes in the direct care of this critically ill patient, excluding procedure time. Critical Care Time: 35 minutes ED Disposition Clinical Impression: Person under investigation for COVID-19, Shortness of breath Respiratory failure Qualifiers: Chronicity: acute Respiratory failure complication: hypoxia Qualified Code(s): J96.01 - Acute respiratory failure with hypoxia Pneumonia Qualifiers: Pneumonia type: due to unspecified organism Laterality: bilateral Lung location: unspecified part of lung Qualified Code(s): J18.9 - Pneumonia, unspecified organism Disposition: 09 ADMITTED INPATIENT Is pt being admited?: Yes Does the pt Need Aspirin: No Condition: Critical Time of Disposition: 02:35
[2021-06-15] MEDS ORDERED: ACETAMINOPHEN 325 MG TAB PO PRN (02:48)
[2021-06-15] MEDS ORDERED: MAGNESIUM HYDROXIDE (MOM) ORAL LIQD UDC PO PRN (02:48)
[2021-06-15] MEDS ORDERED: ALUM-MAG HYDROXIDE-SIMETHICONE 200-200-20MG/5ML ORAL LIQD 30 ML PO PRN (02:48)
[2021-06-15] MEDS ORDERED: NALOXONE 0.4 MG/1 ML INJ IV PRN (02:48)
[2021-06-15] MEDS ORDERED: ONDANSETRON 4 MG/2 ML INJ IV PRN (02:48)
[2021-06-15] MEDS ORDERED: IBUPROFEN 600 MG TAB PO PRN (02:48)
--- NOTE | 2021-06-15 03:01 | History and Physical Report ---
History of Present Illness Date of examination: 06/15/21 Date of admission: 06/15/21 Chief complaint: Shortness of breath Loss of smell and taste Cough History of present illness: Patient is a 51-year-old female that presents emergency room with complaints of shortness of breath, cough, elevated blood sugar. Patient states that her shortness of breath and cough have been going on for 3 to 4 days. Patient states her shortness of breath is worsening. Patient dates her cough is worsening. Patient states that her shortness of breath is better with rest and worse with exertion. Patient denies fever and chills. Patient states she has not been tested for COVID-19. Patient states she has not been vaccinated against COVID-19. Past History Past Medical History: diabetes, hypertension, hyperlipidemia Past Surgical History: hysterectomy Social history: lives with family, smoking (Former smoker quit 3 years ago) Family history: diabetes, hypertension Medications and Allergies Allergies Allergy/AdvReac Type Severity Reaction Status Date / Time No Known Allergies Allergy Verified 06/14/21 19:54 Home Medications Medication Instructions Recorded Confirmed Last Taken Type lisinopriL [Zestril] 20 mg PO QDAY 09/18/14 06/16/18 09/26/15 History Levothyroxine [Synthroid] 150 mcg PO QAM 08/17/15 06/16/18 01/10/16 08:00 History Simvastatin (Nf) [Zocor TAB] 20 mg PO QHS 08/17/15 06/16/18 09/27/15 History Ferrous Sulfate [Feosol 325 MG tab] 325 mg PO BID #60 tablet 09/28/15 06/16/18 01/09/16 Rx oxyCODONE /ACETAMINOPHEN [Percocet 1 tab PO Q6HR PRN #30 tablet 01/11/16 06/16/18 Unknown Rx 5/325] traMADoL [Ultram] 50 mg PO Q6HR PRN #10 tablet 03/11/18 06/16/18 Unknown Rx Insulin Lispro [HumaLOG VIAL] 10 unit SQ AC #30 day 06/16/18 Unknown Rx cephALEXin [Keflex] 500 mg PO Q12HR #14 cap 06/16/18 Unknown Rx Gabapentin 300 mg PO TID #60 cap 02/10/21 Unknown Rx Insulin Aspart (Nf) [Novolog] 10 unit SQ AC #1 vial 02/10/21 Unknown Rx Insulin Glargine [Lantus VIAL] 22 unit SUB-Q QHS #30 day 02/10/21 Unknown Rx Lisinopril/Hydrochlorothiazide 1 tab PO QDAY #15 tab 02/10/21 Unknown Rx [Zestoretic 20-25 mg] Syringe and Needle,Insulin,1Ml 1 each MC PRN #60 disp.syrin 02/10/21 Unknown Rx [Insulin Syringe/Needle 1 ML] Review of Systems Constitutional: anorexia, fatigue, weakness Ears, nose, mouth and throat: no epistaxis, no bleeding gums Breasts: no discharge Cardiovascular: high blood pressure Respiratory: cough, shortness of breath (Requiring oxygen at 2 L nasal cannula), congestion Gastrointestinal: no melena Rectal: no hemorrhoids Musculoskeletal: muscle weakness Integumentary: no rash, no pruritis Neurological: no head injury Hematologic/Lymphatic: no easy bruising, no easy bleeding Allergic/Immunologic: no urticaria Exam - Constitutional Vitals: Temp Pulse Resp BP Pulse Ox 98.7 F 82 18 130/85 96 06/14/21 19:46 06/15/21 01:02 06/15/21 01:02 06/14/21 19:46 06/15/21 01:02 General appearance: Present: mild distress, well-nourished - EENT Eyes: Present: PERRL ENT: hearing intact, clear oral mucosa - Neck Neck: Present: supple, normal ROM - Respiratory Respiratory effort: normal Respiratory: bilateral: CTA - Cardiovascular Heart rate: 88 Heart Sounds: Present: S1 & S2. Absent: rub, click - Extremities Extremities: pulses symmetrical, No edema Peripheral Pulses: within normal limits - Abdominal General gastrointestinal: Present: soft, non-tender, non-distended, normal bowel sounds Female genitourinary: Present: normal - Integumentary Integumentary: Present: clear, warm, dry - Musculoskeletal Musculoskeletal: strength equal bilaterally, generalized weakness - Psychiatric Psychiatric: appropriate mood/affect, intact judgment & insight, cooperative - Neurologic Neurologic: CNII-XII intact, moves all extremities - Allied Health Allied health notes reviewed: nursing HEART Score - HEART Score Troponin: Troponin T < 0.010 ng/mL (0.00-0.029) 06/14/21 20:28 Results - Labs CBC & Chem 7: 06/14/21 20:28 06/14/21 20:28 Labs: Abnormal lab results 06/14/21 06/14/21 06/14/21 Range/Units 19:49 20:28 20:28 Lymph % (Auto) 11.4 L (13.4-35.0) % Lymph # (Auto) 0.5 L (1.2-5.4) K/mm3 Seg Neutrophils % 83.2 H (40.0-70.0) % D-Dimer (0-234) ng/mlDDU Carbon Dioxide 32 H (22-30) mmol/L Glucose 288 H (65-100) mg/dL POC Glucose 290 H (70-105) mg/dL Ferritin (10.0-200.0) ng/mL Lactate Dehydrogenase (91-180) units/L C-Reactive Protein (0.00-1.30) mg/dL NT-Pro-B Natriuret Pep 1205 H (0-900) pg/mL Albumin 3.5 L (3.9-5) g/dL 06/14/21 06/14/21 06/14/21 Range/Units 20:44 20:44 20:44 Lymph % (Auto) (13.4-35.0) % Lymph # (Auto) (1.2-5.4) K/mm3 Seg Neutrophils % (40.0-70.0) % D-Dimer 488.01 H (0-234) ng/mlDDU Carbon Dioxide (22-30) mmol/L Glucose (65-100) mg/dL POC Glucose (70-105) mg/dL Ferritin 412.4 H (10.0-200.0) ng/mL Lactate Dehydrogenase 394 H (91-180) units/L C-Reactive Protein 9.40 H (0.00-1.30) mg/dL NT-Pro-B Natriuret Pep (0-900) pg/mL Albumin (3.9-5) g/dL Assessment and Plan - Patient Problems (1) Person under investigation for COVID-19 Current Visit: Yes Status: Acute Plan to address problem: Airborne and contact isolation per Covid protocol Monitor inflammatory markers Encourage use of incentive spirometer and prone position Empiric antibiotic with azithromycin Rocephin Infectious disease consultedfollow-up with recommendation Ascorbic acid, zinc sulfate, vitamin D supplement, and Decadron. Continue oxygen supplement to keep this O2 sat greater than 92% (2) Pneumonia Current Visit: Yes Status: Acute Qualifiers: Pneumonia type: due to unspecified organism Laterality: bilateral Lung location: unspecified part of lung Qualified Code(s): J18.9 - Pneumonia, unspecified organism Plan to address problem: Continue empiric antibiotic Chest x-ray reviewed bilateral pneumonia (3) Acute respiratory failure with hypoxia Current Visit: Yes Status: Acute Plan to address problem: Bronchodilator, systemic steroid and oxygen supplement EKGs and chest x-ray (4) Diabetes, type 1.5, controlled, managed as type 2 Current Visit: Yes Status: Acute Plan to address problem: Monitor blood sugar with sliding scale protocol Continue basal insulin Check hemoglobin A1c (5) Essential hypertension Current Visit: Yes Status: Acute Plan to address problem: Monitor blood pressure Resume home antihypertensive As needed hydralazine (6) High cholesterol Current Visit: Yes Status: Acute Plan to address problem: Resume home statin (7) DVT prophylaxis Current Visit: Yes Status: Acute Plan to address problem: Subcutaneous Lovenox
[2021-06-15] MEDS ORDERED: traZODone 50 MG TAB PO PRN (03:04)
[2021-06-15] MEDS ORDERED: hydrALAZINE 20 MG/1 ML INJ IV PRN (03:37)
[2021-06-15] MEDS: GABAPENTIN 300 MG CAP PO SCH ×4 (04:40→22:07)
[2021-06-15] MEDS ORDERED: NON-FORMULARY EACH (Insulin Aspart (Nf) 100 UNIT/ML Units) SQ SCH (07:30)
[2021-06-15] MEDS: LEVOTHYROXINE 150 MCG TAB PO SCH (07:34)
[2021-06-15] MEDS ORDERED: GABAPENTIN 300 MG CAP PO SCH (08:00)
[2021-06-15] MEDS: INSULIN LISPRO 100 UNIT/ML SUB-Q SCH ×3 (08:15→16:02)
[2021-06-15] MEDS: ENOXAPARIN 40 MG/0.4 ML INJ SUB-Q SCH (09:49)
[2021-06-15] MEDS: FERROUS SULFATE 325 MG TAB PO SCH ×2 (09:49→22:07)
[2021-06-15] MEDS: dexAMETHasone 4 MG/ML VIAL IV SCH (09:49)
[2021-06-15] MEDS: FAMOTIDINE 20 MG/2 ML INJ IV SCH ×2 (09:50→22:08)
[2021-06-15] MEDS ORDERED: cefTRIAXone/NS 1 GM/50 ML 1 GM/50 ML BAG IV SCH (10:00)
[2021-06-15] MEDS: SENNOSIDES 8.6 MG TAB PO SCH ×2 (10:46→22:08)
[2021-06-15] MEDS: LISINOPRIL 20 MG TAB PO SCH (10:47)
--- NOTE | 2021-06-15 11:14 | Electrocardiograph Report ---
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
--- NOTE | 2021-06-15 11:35 | Event Note ---
Date: 06/15/21 Patient with shortness of breath. To r/o Elena. I have seen and examined her.
--- NOTE | 2021-06-15 14:00 | Consultation ---
History of Present Illness - Reason for Consult Consult date: 06/15/21 BERNABE HERNÁNDEZ Requesting physician: GUZMAN KEYES - History of Present Illness The patient is a 51-year-old female with diabetes, hypertension, hyperlipidemia admitted to the hospital with cough and shortness of breath worsening over the last 4 days. Denies any fever or chills. Upon evaluation in the ER, no fever, labs revealed WBC 4.5, D-dimer 488, ferritin 412, CRP 9.4, LDH 394. Also hyperglycemic. COVID-19 PCR is pending. Chest x-ray showed diffuse bilateral pneumonia. Currently, hypoxic requiring supplemental oxygen by nasal cannula. She is unvaccinated Review of Systems: reviewed in the chart, unable to obtain, minimize risk of transmission Past History Past Medical History: diabetes, hypertension, hyperlipidemia Past Surgical History: hysterectomy Social history: lives with family, smoking (Former smoker quit 3 years ago) Family history: diabetes, hypertension Medications and Allergies Allergies Allergy/AdvReac Type Severity Reaction Status Date / Time No Known Allergies Allergy Verified 06/14/21 19:54 Home Medications Medication Instructions Recorded Confirmed Last Taken Type lisinopriL [Zestril] 20 mg PO QDAY 09/18/14 06/15/21 09/26/15 History Levothyroxine [Synthroid] 150 mcg PO QAM 08/17/15 06/15/21 01/10/16 08:00 History Simvastatin (Nf) [Zocor TAB] 20 mg PO QHS 08/17/15 06/15/21 09/27/15 History Ferrous Sulfate [Feosol 325 MG tab] 325 mg PO BID #60 tablet 09/28/15 06/15/21 01/09/16 Rx oxyCODONE /ACETAMINOPHEN [Percocet 1 tab PO Q6HR PRN #30 tablet 01/11/16 06/15/21 Unknown Rx 5/325] traMADoL [Ultram] 50 mg PO Q6HR PRN #10 tablet 03/11/18 06/15/21 Unknown Rx Insulin Lispro [HumaLOG VIAL] 10 unit SQ AC #30 day 06/16/18 06/15/21 Unknown Rx cephALEXin [Keflex] 500 mg PO Q12HR #14 cap 06/16/18 06/15/21 Unknown Rx Gabapentin 300 mg PO TID #60 cap 02/10/21 06/15/21 Unknown Rx Insulin Aspart (Nf) [Novolog] 10 unit SQ AC #1 vial 02/10/21 06/15/21 Unknown Rx Insulin Glargine [Lantus VIAL] 22 unit SUB-Q QHS #30 day 02/10/21 06/15/21 Unknown Rx Lisinopril/Hydrochlorothiazide 1 tab PO QDAY #15 tab 02/10/21 06/15/21 Unknown Rx [Zestoretic 20-25 mg] Syringe and Needle,Insulin,1Ml 1 each MC PRN #60 disp.syrin 02/10/21 06/15/21 Unknown Rx [Insulin Syringe/Needle 1 ML] Active Meds: Active Medications Acetaminophen (Acetaminophen 325 Mg Tab) 650 mg PO Q4H PRN PRN Reason: Pain MILD(1-3)/Fever >100.5/SHI Al Hydrox/Mg Hydrox/Simethicone (Alum-Mag Hydroxide-Simethicone [id number]/5ml Oral Liqd 30 Ml) 30 ml PO Q4H PRN PRN Reason: Indigestion Dexamethasone (Dexamethasone 4 Mg/Ml Vial) 6 mg IV DAILY [facility] Last Admin: 06/15/21 09:49 Dose: 6 mg Documented by: Enoxaparin Sodium (Enoxaparin 40 Mg/0.4 Ml Inj) 40 mg SUB-Q QDAY [facility] Last Admin: 06/15/21 09:49 Dose: 40 mg Documented by: Famotidine (Famotidine 20 Mg/2 Ml Inj) 20 mg IV BID [facility] Last Admin: 06/15/21 09:50 Dose: 20 mg Documented by: Ferrous Sulfate (Ferrous Sulfate 325 Mg Tab) 325 mg PO BID [facility] Last Admin: 06/15/21 09:49 Dose: 325 mg Documented by: Gabapentin (Gabapentin 300 Mg Cap) 300 mg PO TID [facility] Last Admin: 06/15/21 13:54 Dose: Not Given Documented by: Hydralazine HCl (Hydralazine 20 Mg/1 Ml Inj) 5 mg IV Q4H PRN PRN Reason: Hypertension Sodium Chloride (Nacl 0.9% 1000 Ml) 1,000 mls @ 75 mls/hr IV DIRECT AROLDO Azithromycin (Zithromax/Ns) 500 mg in 250 mls @ 250 mls/hr IV Q24H [facility] Ceftriaxone Sodium (Rocephin/Ns 2 Gm/100 Ml) 2 gm in 100 mls @ 200 mls/hr IV Q24H [facility]; Protocol Ibuprofen (Ibuprofen 600 Mg Tab) 600 mg PO Q6H PRN PRN Reason: Pain, Mild (1-3) Insulin Glargine (Insulin Glargine 100 Units/Ml) 30 units SUB-Q QHS [facility] Insulin Human Lispro (Insulin Lispro 100 Unit/Ml) 10 unit SUB-Q AC [facility] Last Admin: 06/15/21 11:32 Dose: 10 unit Documented by: Levothyroxine Sodium (Levothyroxine 150 Mcg Tab) 150 mcg PO QAM@0600 [facility] Last Admin: 06/15/21 07:34 Dose: Not Given Documented by: Lisinopril (Lisinopril 20 Mg Tab) 20 mg PO QDAY [facility] Last Admin: 06/15/21 10:47 Dose: 20 mg Documented by: Magnesium Hydroxide (Magnesium Hydroxide (Mom) Oral Liqd Udc) 30 ml PO Q4H PRN PRN Reason: Constipation Naloxone HCl (Naloxone 0.4 Mg/1 Ml Inj) 0.1 mg IV Q2MIN PRN PRN Reason: Res Rate </= 8 or 02 SAT < 92% Ondansetron HCl (Ondansetron 4 Mg/2 Ml Inj) 4 mg IV Q8H PRN PRN Reason: Nausea And Vomiting Oxycodone/Acetaminophen (Oxycodone /Acetaminophen 5-325mg Tab) 1 tab PO Q6H PRN PRN Reason: Pain, Moderate (4-6) Pravastatin Sodium (Pravastatin 40 Mg Tab) 40 mg PO QHS [facility] Senna (Sennosides 8.6 Mg Tab) 8.6 mg PO Q12HR [facility] Last Admin: 06/15/21 10:46 Dose: 8.6 mg Documented by: Sodium Chloride (Sodium Chloride 0.9% 10 Ml Flush Syringe) 10 ml IV BID [facility] Last Admin: 06/15/21 10:33 Dose: Not Given Documented by: Trazodone HCl (Trazodone 50 Mg Tab) 50 mg PO QHS PRN PRN Reason: Constipation Physical Examination - Physical Exam Narrative exam: Physical Exam (reviewed in chart to minimize risk of transmission) Constitutional: deferred Head, Ears, Nose: deferred Eyes: deferred Neck: deferred Oral: deferred Cardiovascular: deferred Respiratory: deferred GI: deferred Musculoskeletal: deferred Skin: deferred Hem/Lymphatic: deferred Psych: deferred Neurological: deferred - Constitutional Vitals: Vital Signs Temp Pulse Resp BP Pulse Ox 98.7 F 76 17 128/64 93 06/14/21 19:46 06/15/21 13:00 06/15/21 05:00 06/15/21 13:00 06/15/21 13:00 Temperature -Last 24 Hours Temperature 98.7 F Results - Labs CBC & Chem 7: 06/14/21 20:28 06/14/21 20:28 Labs: Abnormal lab results 06/14/21 06/14/21 06/14/21 Range/Units 19:49 20:28 20:28 Lymph % (Auto) 11.4 L (13.4-35.0) % Lymph # (Auto) 0.5 L (1.2-5.4) K/mm3 Seg Neutrophils % 83.2 H (40.0-70.0) % D-Dimer (0-234) ng/mlDDU Carbon Dioxide 32 H (22-30) mmol/L Glucose 288 H (65-100) mg/dL POC Glucose 290 H (70-105) mg/dL Ferritin (10.0-200.0) ng/mL Lactate Dehydrogenase (91-180) units/L C-Reactive Protein (0.00-1.30) mg/dL NT-Pro-B Natriuret Pep 1205 H (0-900) pg/mL Albumin 3.5 L (3.9-5) g/dL 06/14/21 06/14/21 06/14/21 Range/Units 20:44 20:44 20:44 Lymph % (Auto) (13.4-35.0) % Lymph # (Auto) (1.2-5.4) K/mm3 Seg Neutrophils % (40.0-70.0) % D-Dimer 488.01 H (0-234) ng/mlDDU Carbon Dioxide (22-30) mmol/L Glucose (65-100) mg/dL POC Glucose (70-105) mg/dL Ferritin 412.4 H (10.0-200.0) ng/mL Lactate Dehydrogenase 394 H (91-180) units/L C-Reactive Protein 9.40 H (0.00-1.30) mg/dL NT-Pro-B Natriuret Pep (0-900) pg/mL Albumin (3.9-5) g/dL 06/15/21 06/15/21 Range/Units 08:09 11:11 Lymph % (Auto) (13.4-35.0) % Lymph # (Auto) (1.2-5.4) K/mm3 Seg Neutrophils % (40.0-70.0) % D-Dimer (0-234) ng/mlDDU Carbon Dioxide (22-30) mmol/L Glucose (65-100) mg/dL POC Glucose 332 H 338 H (70-105) mg/dL Ferritin (10.0-200.0) ng/mL Lactate Dehydrogenase (91-180) units/L C-Reactive Protein (0.00-1.30) mg/dL NT-Pro-B Natriuret Pep (0-900) pg/mL Albumin (3.9-5) g/dL - Imaging and Cardiology Chest x-ray: report reviewed, image reviewed (b/l diffuse pneumonia) Assessment and Plan Cultures: SARS CoV2 PCR: Pending A/P: 81-year-old female with diabetes, hypertension, hyperlipidemia: WBC 4.5, D-dimer 488, ferritin 412, CRP 9.4, LDH 394 #Bilateral pneumonia: Suspicion for COVID-19. Unvaccinated. #Acute hypoxic respiratory failure: #Obesity #Diabetes with hyperglycemia Recs: IV/PO Dexamethasone x 10 days IV remdesivir x 5 days ordered due to high suspicion for COVID-19 if requiring HFNC >30 L/min, CRP >7.5, candidate for Actemra (depending on availability) prophylactic anticoagulation based on d-dimer per hospital protocol if procalcitonin is low, abx not needed trend ferritin, d-dimer, CRP every 2-3 days Orestes Owusu MD, FACP [facility] O: [phone] F: [phone]
[2021-06-15] MEDS ORDERED: REMDESIVIR 200 MG in SODIUM CHLORIDE 0.9% 250ML 250 ML IV ONE ×2 (14:01→16:00)
[2021-06-15 15:23] LABS: Alanine Aminotransferase 22 units/L (7-56); Albumin 2.8 g/dL (3.9-5); Blood Urea Nitrogen 9 mg/dL (7-17); Calcium 8.9 mg/dL (8.4-10.2); Hemolysis Index 151
[2021-06-15 15:25] LABS: BUN/Creatinine Ratio 13
[2021-06-15] MEDS: SODIUM CHLORIDE 0.9% 50 ML IVPB IV SCH ×2 (16:02→22:34)
[2021-06-15] MEDS ORDERED: INSULIN GLARGINE 100 UNITS/ML SUB-Q SCH (22:00)
[2021-06-15] MEDS: cefTRIAXone/NS 2 GM/100 ML 2 GM/100 ML BAG IV SCH (22:08)
[2021-06-15] MEDS: INSULIN GLARGINE 100 UNITS/ML SUB-Q SCH (23:07)
[2021-06-15] MEDS: PRAVASTATIN 40 MG TAB PO SCH (23:09)
[2021-06-16] MEDS: AZITHROMYCIN/NS 500 MG/250 ML 500 MG/250 ML BAG IV SCH (01:00)
[2021-06-16 05:43] LABS: Basophils % (Auto) 0.3 % (0.0-1.8); Hematocrit 41.4 % (30.3-42.9); Hemoglobin 13.5 gm/dl (10.1-14.3); Lymphocytes # (Auto) 0.5 K/mm3 (1.2-5.4); Lymphocytes % (Auto) 6.8 % (13.4-35.0); Mean Corpuscular HGB Conc 33 % (30-34); Mean Corpuscular Volume 88 fl (79-97); Monocytes # (Auto) 0.5 K/mm3 (0.0-0.8); Monocytes % (Auto) 6.6 % (0.0-7.3); Platelet Count 296 K/mm3 (140-440); Red Cell Distribution Width 14.5 % (13.2-15.2)
[2021-06-16 06:22] LABS: Alanine Aminotransferase 21 units/L (7-56); Albumin 2.9 g/dL (3.9-5); BUN/Creatinine Ratio 11; Blood Urea Nitrogen 10 mg/dL (7-17); Calcium 8.6 mg/dL (8.4-10.2); Hemolysis Index 18
[2021-06-16] MEDS: ENOXAPARIN 40 MG/0.4 ML INJ SUB-Q SCH (10:29)
[2021-06-16] MEDS: dexAMETHasone 4 MG/ML VIAL IV SCH (10:29)
[2021-06-16] MEDS: FERROUS SULFATE 325 MG TAB PO SCH ×2 (10:30→22:38)
[2021-06-16] MEDS: LISINOPRIL 20 MG TAB PO SCH (10:30)
[2021-06-16] MEDS: GABAPENTIN 300 MG CAP PO SCH ×3 (10:31→22:38)
[2021-06-16] MEDS: INSULIN LISPRO 100 UNIT/ML SUB-Q SCH ×3 (10:31→16:26)
[2021-06-16] MEDS: FAMOTIDINE 20 MG/2 ML INJ IV SCH ×2 (10:31→22:39)
[2021-06-16] MEDS: LEVOTHYROXINE 150 MCG TAB PO SCH (11:21)
--- NOTE | 2021-06-16 12:54 | Progress Note ---
Assessment and Plan Assessment and plan: (1) COVID-19 Current Visit: Yes Status: Acute Plan to address problem: Airborne and contact isolation per Covid protocol Monitor inflammatory markers Encourage use of incentive spirometer and prone position Empiric antibiotic with azithromycin Rocephin Infectious disease consultedfollow-up with recommendation Ascorbic acid, zinc sulfate, vitamin D supplement, and Decadron. Continue oxygen supplement to keep this O2 sat greater than 92% (2) Pneumonia Current Visit: Yes Status: Acute Qualifiers: Pneumonia type: due to unspecified organism Laterality: bilateral Lung location: unspecified part of lung Qualified Code(s): J18.9 - Pneumonia, unspecified organism Plan to address problem: Continue empiric antibiotic Chest x-ray reviewed bilateral pneumonia (3) Acute respiratory failure with hypoxia Current Visit: Yes Status: Acute Plan to address problem: Bronchodilator, systemic steroid and oxygen supplement EKGs and chest x-ray (4) Diabetes, type 1.5, controlled, managed as type 2 Current Visit: Yes Status: Acute Plan to address problem: Monitor blood sugar with sliding scale protocol Continue basal insulin Check hemoglobin A1c (5) Essential hypertension Current Visit: Yes Status: Acute Plan to address problem: Monitor blood pressure Resume home antihypertensive As needed hydralazine (6) High cholesterol Current Visit: Yes Status: Acute Plan to address problem: Resume home statin (7) DVT prophylaxis Current Visit: Yes Status: Acute Plan to address problem: Subcutaneous Lovenox 06/16/21 Patient with Covid-19 pneumonia, with acute respiratory failure. On supplemental Oxygen. ID Specialist following Blood glucose uncontrolled. Increase Lantus and Humalog doses. History Interval history: shortness of breath Cough Hospitalist Physical - Physical exam Narrative exam: Gen:Not in acute distress, sitting up in bed, HEENT:Normocephalic, atraumatic Neck:supple, no JVD Lungs: bilateral rales, no wheeze Heart:S1 and S2 reg, no murmurs, rubs or gallop Abd:Soft, non tender, non distended, normal bowel sounds Ext:No edema. no clubbing, no cyanosis Neuro:Awake, alert, oriented X 3, moves all ext, - Constitutional Vitals: Temp Pulse Resp BP Pulse Ox 98.7 F 89 10 L 145/96 93 06/14/21 19:46 06/16/21 10:45 06/16/21 10:45 06/16/21 10:45 06/16/21 10:45 HEART Score - HEART Score Troponin: Troponin T < 0.010 ng/mL (0.00-0.029) 06/14/21 20:28 Results - Labs CBC & Chem 7: 06/16/21 04:52 06/16/21 04:52 Labs: Laboratory Last Values WBC 7.6 K/mm3 (4.5-11.0) 06/16/21 04:52 RBC 4.70 M/mm3 (3.65-5.03) 06/16/21 04:52 Hgb 13.5 gm/dl (10.1-14.3) 06/16/21 04:52 Hct 41.4 % (30.3-42.9) 06/16/21 04:52 MCV 88 fl (79-97) 06/16/21 04:52 MCH 29 pg (28-32) 06/16/21 04:52 MCHC 33 % (30-34) 06/16/21 04:52 RDW 14.5 % (13.2-15.2) 06/16/21 04:52 Plt Count 296 K/mm3 (140-440) 06/16/21 04:52 Lymph % (Auto) 6.8 % (13.4-35.0) L 06/16/21 04:52 [place] % (Auto) 6.6 % (0.0-7.3) 06/16/21 04:52 Eos % (Auto) 0.0 % (0.0-4.3) 06/16/21 04:52 Baso % (Auto) 0.3 % (0.0-1.8) 06/16/21 04:52 Lymph # (Auto) 0.5 K/mm3 (1.2-5.4) L 06/16/21 04:52 [place] # (Auto) 0.5 K/mm3 (0.0-0.8) 06/16/21 04:52 Eos # (Auto) 0.0 K/mm3 (0.0-0.4) 06/16/21 04:52 Baso # (Auto) 0.0 K/mm3 (0.0-0.1) 06/16/21 04:52 Seg Neutrophils % 86.3 % (40.0-70.0) H 06/16/21 04:52 Seg Neutrophils # 6.5 K/mm3 (1.8-7.7) 06/16/21 04:52 D-Dimer 488.01 ng/mlDDU (0-234) H 06/14/21 20:44 Sodium 138 mmol/L (137-145) 06/16/21 04:52 Potassium 4.2 mmol/L (3.6-5.0) 06/16/21 04:52 Chloride 100.7 mmol/L (98-107) 06/16/21 04:52 Carbon Dioxide 29 mmol/L (22-30) 06/16/21 04:52 Anion Gap 13 mmol/L 06/16/21 04:52 BUN 10 mg/dL (7-17) 06/16/21 04:52 Creatinine 0.9 mg/dL (0.6-1.2) 06/16/21 04:52 Estimated GFR > 60 ml/min 06/16/21 04:52 BUN/Creatinine Ratio 11 % 06/16/21 04:52 Glucose 326 mg/dL (65-100) H 06/16/21 04:52 POC Glucose 369 mg/dL (70-105) H 06/16/21 10:26 Calcium 8.6 mg/dL (8.4-10.2) 06/16/21 04:52 Ferritin 412.4 ng/mL (10.0-200.0) H 06/14/21 20:44 Total Bilirubin 0.40 mg/dL (0.1-1.2) 06/16/21 04:52 AST 22 units/L (5-40) 06/16/21 04:52 ALT 21 units/L (7-56) 06/16/21 04:52 Alkaline Phosphatase 106 units/L (35-129) 06/16/21 04:52 Lactate Dehydrogenase 394 units/L (91-180) H 06/14/21 20:44 Troponin T < 0.010 ng/mL (0.00-0.029) 06/14/21 20:28 C-Reactive Protein 9.40 mg/dL (0.00-1.30) H 06/14/21 20:44 NT-Pro-B Natriuret Pep 1205 pg/mL (0-900) H 06/14/21 20:28 Total Protein 6.8 g/dL (6.3-8.2) 06/16/21 04:52 Albumin 2.9 g/dL (3.9-5) L 06/16/21 04:52 Albumin/Globulin Ratio 0.7 % 06/16/21 04:52 Coronavirus (PCR) Positive (Negative) A 06/15/21 Unknown Active Medications - Current Medications Current Medications: Generic Name Dose Route Start Last Admin Trade Name Freq PRN Reason Stop Dose Admin Acetaminophen 650 mg 06/15/21 02:48 Acetaminophen 325 Mg Tab PO Q4H PRN Pain MILD(1-3)/Fever >100.5/SHI Al Hydrox/Mg Hydrox/Simethicone 30 ml 06/15/21 02:48 Alum-Mag Hydroxide-Simethicone [id number]/5ml Oral Liqd 30 Ml PO Q4H PRN Indigestion Dexamethasone 6 mg 06/15/21 10:00 06/16/21 10:29 Dexamethasone 4 Mg/Ml Vial IV 06/24/21 10:01 6 mg DAILY AROLDO Administration Enoxaparin Sodium 40 mg 06/15/21 10:00 06/16/21 10:29 Enoxaparin 40 Mg/0.4 Ml Inj SUB-Q 40 mg QDAY AROLDO Administration Famotidine 20 mg 06/15/21 10:00 06/16/21 10:31 Famotidine 20 Mg/2 Ml Inj IV 20 mg BID AROLDO Administration Ferrous Sulfate 325 mg 06/15/21 10:00 06/16/21 10:30 Ferrous Sulfate 325 Mg Tab PO 325 mg BID AROLDO Administration Gabapentin 300 mg 06/15/21 05:00 06/16/21 10:31 Gabapentin 300 Mg Cap PO 300 mg TID AROLDO Administration Hydralazine HCl 5 mg 06/15/21 03:37 Hydralazine 20 Mg/1 Ml Inj IV Q4H PRN Hypertension Sodium Chloride 1,000 mls @ 75 mls/hr 06/15/21 03:00 Nacl 0.9% 1000 Ml IV DIRECT AROLDO Azithromycin 500 mg in 250 mls @ 250 mls/hr 06/15/21 22:00 06/16/21 01:00 Zithromax/Ns IV 250 mls/hr Q24H [facility]OLDO Administration Ceftriaxone Sodium 2 gm in 100 mls @ 200 mls/hr 06/15/21 22:00 06/15/21 22:08 Rocephin/Ns 2 Gm/100 Ml IV 200 mls/hr Q24H [facility] Administration Protocol REMDESIVIR 100 mg/ Sodium 250 mls @ 500 mls/hr 06/16/21 21:00 Chloride IV 06/19/21 21:29 Q24HR@2100 [facility] Ibuprofen 600 mg 06/15/21 02:48 Ibuprofen 600 Mg Tab PO Q6H PRN Pain, Mild (1-3) Insulin Glargine 30 units 06/15/21 22:00 06/15/21 23:07 Insulin Glargine 100 Units/Ml SUB-Q 30 units QHS [facility] Administration Insulin Human Lispro 14 unit 06/16/21 07:34 Insulin Lispro 100 Unit/Ml SUB-Q AC [facility] Levothyroxine Sodium 150 mcg 06/15/21 06:00 06/16/21 11:21 Levothyroxine 150 Mcg Tab PO Not Given QAM@0600 [facility] Lisinopril 20 mg 06/15/21 10:00 06/16/21 10:30 Lisinopril 20 Mg Tab PO 20 mg QDAY [facility] Administration Magnesium Hydroxide 30 ml 06/15/21 02:48 Magnesium Hydroxide (Mom) Oral Liqd Udc PO Q4H PRN Constipation Naloxone HCl 0.1 mg 06/15/21 02:48 Naloxone 0.4 Mg/1 Ml Inj IV Q2MIN PRN Res Rate </= 8 or 02 SAT < 92% Ondansetron HCl 4 mg 06/15/21 02:48 Ondansetron 4 Mg/2 Ml Inj IV Q8H PRN Nausea And Vomiting Oxycodone/Acetaminophen 1 tab 06/15/21 02:48 Oxycodone /Acetaminophen 5-325mg Tab PO Q6H PRN Pain, Moderate (4-6) Pravastatin Sodium 40 mg 06/15/21 22:00 06/15/21 23:09 Pravastatin 40 Mg Tab PO Not Given QHS [facility] Senna 8.6 mg 06/15/21 10:00 06/15/21 22:08 Sennosides 8.6 Mg Tab PO Not Given Q12HR [facility] Sodium Chloride 10 ml 06/15/21 10:00 06/16/21 10:30 Sodium Chloride 0.9% 10 Ml Flush Syringe IV 10 ml BID [facility]OLDO Administration Sodium Chloride 50 ml 06/15/21 16:00 06/15/21 22:34 Sodium Chloride 0.9% 50 Ml Ivpb IV 06/18/21 21:01 50 ml Q24HR@2100 [facility] Administration Trazodone HCl 50 mg 06/15/21 03:04 Trazodone 50 Mg Tab PO QHS PRN Constipation
[2021-06-16] MEDS: SENNOSIDES 8.6 MG TAB PO SCH ×2 (16:22→23:45)
--- NOTE | 2021-06-16 16:52 | Progress Note ---
Assessment and Plan Cultures: SARS CoV2 PCR: positive A/P: 81-year-old female with diabetes, hypertension, hyperlipidemia: WBC 4.5, D-dimer 488, ferritin 412, CRP 9.4, LDH 394 #Bilateral pneumonia due to COVID-19. Unvaccinated. #Acute hypoxic respiratory failure: on NC. #Obesity #Diabetes with hyperglycemia Recs: continue IV/PO Dexamethasone x 10 days continue IV remdesivir x 5 days prophylactic anticoagulation based on d-dimer per hospital protocol if procalcitonin is low, abx not needed trend ferritin, d-dimer, CRP every 2-3 days Orestes Owusu MD, FACP [facility] ([facility] O: [phone] F: [phone] Subjective Date of service: 06/16/21 Interval history: No fever. On oxygen. Objective - Exam Narrative Exam: Physical Exam (reviewed in chart to minimize risk of transmission) Constitutional: deferred Head, Ears, Nose: deferred Eyes: deferred Neck: deferred Oral: deferred Cardiovascular: deferred Respiratory: deferred GI: deferred Musculoskeletal: deferred Skin: deferred Hem/Lymphatic: deferred Psych: deferred Neurological: deferred - Constitutional Vitals: Vital Signs Temp Pulse Resp BP Pulse Ox 98.7 F 89 10 L 145/96 93 06/14/21 19:46 06/16/21 10:45 06/16/21 10:45 06/16/21 10:45 06/16/21 10:45 - Labs CBC & Chem 7: 06/16/21 04:52 06/16/21 04:52 Labs: Abnormal lab results 06/15/21 06/16/21 06/16/21 Range/Units 22:46 04:52 04:52 Lymph % (Auto) 6.8 L (13.4-35.0) % Lymph # (Auto) 0.5 L (1.2-5.4) K/mm3 Seg Neutrophils % 86.3 H (40.0-70.0) % Glucose 326 H (65-100) mg/dL POC Glucose 247 H (70-105) mg/dL Albumin 2.9 L (3.9-5) g/dL 06/16/21 06/16/21 Range/Units 10:26 16:21 Lymph % (Auto) (13.4-35.0) % Lymph # (Auto) (1.2-5.4) K/mm3 Seg Neutrophils % (40.0-70.0) % Glucose (65-100) mg/dL POC Glucose 369 H 286 H (70-105) mg/dL Albumin (3.9-5) g/dL
[2021-06-16] MEDS: INSULIN GLARGINE 100 UNITS/ML SUB-Q SCH (22:39)
[2021-06-16] MEDS: REMDESIVIR 100 MG in SODIUM CHLORIDE 0.9% 250ML 250 ML IV SCH (22:40)
[2021-06-16] MEDS: PRAVASTATIN 40 MG TAB PO SCH (23:44)
[2021-06-16] MEDS: SODIUM CHLORIDE 0.9% 50 ML IVPB IV SCH (23:45)
[2021-06-17] MEDS: cefTRIAXone/NS 2 GM/100 ML 2 GM/100 ML BAG IV SCH (00:57)
[2021-06-17] MEDS: AZITHROMYCIN/NS 500 MG/250 ML 500 MG/250 ML BAG IV SCH ×2 (01:29→21:03)
[2021-06-17] MEDS: LEVOTHYROXINE 150 MCG TAB PO SCH (07:11)
[2021-06-17] MEDS: INSULIN LISPRO 100 UNIT/ML SUB-Q SCH ×3 (07:12→17:12)
[2021-06-17] MEDS: GABAPENTIN 300 MG CAP PO SCH ×3 (08:01→21:01)
[2021-06-17 08:11] LABS: Alanine Aminotransferase 20 units/L (7-56); Blood Urea Nitrogen 10 mg/dL (7-17); Calcium 8.7 mg/dL (8.4-10.2); Hemolysis Index 5
[2021-06-17 08:15] LABS: BUN/Creatinine Ratio 17
[2021-06-17 09:37] LABS: C-Reactive Protein 4.6 mg/dL (0.00-1.30)
[2021-06-17] MEDS: FAMOTIDINE 20 MG/2 ML INJ IV SCH ×2 (10:02→21:02)
[2021-06-17] MEDS: LISINOPRIL 20 MG TAB PO SCH (10:02)
[2021-06-17] MEDS: DEXAMETHASONE 4 MG TAB PO SCH (10:02)
[2021-06-17] MEDS: FERROUS SULFATE 325 MG TAB PO SCH ×2 (10:02→21:01)
[2021-06-17] MEDS: ENOXAPARIN 40 MG/0.4 ML INJ SUB-Q SCH (10:03)
--- NOTE | 2021-06-17 11:12 | Progress Note ---
Assessment and Plan Assessment and plan: (1) COVID-19 Current Visit: Yes Status: Acute Plan to address problem: Airborne and contact isolation per Covid protocol Monitor inflammatory markers Encourage use of incentive spirometer and prone position Empiric antibiotic with azithromycin Rocephin Infectious disease consultedfollow-up with recommendation Ascorbic acid, zinc sulfate, vitamin D supplement, and Decadron. Continue oxygen supplement to keep this O2 sat greater than 92% (2) Pneumonia Current Visit: Yes Status: Acute Qualifiers: Pneumonia type: due to unspecified organism Laterality: bilateral Lung location: unspecified part of lung Qualified Code(s): J18.9 - Pneumonia, unspecified organism Plan to address problem: Continue empiric antibiotic Chest x-ray reviewed bilateral pneumonia (3) Acute respiratory failure with hypoxia Current Visit: Yes Status: Acute Plan to address problem: Bronchodilator, systemic steroid and oxygen supplement EKGs and chest x-ray (4) Diabetes, type 1.5, controlled, managed as type 2 Current Visit: Yes Status: Acute Plan to address problem: Monitor blood sugar with sliding scale protocol Continue basal insulin Check hemoglobin A1c (5) Essential hypertension Current Visit: Yes Status: Acute Plan to address problem: Monitor blood pressure Resume home antihypertensive As needed hydralazine (6) High cholesterol Current Visit: Yes Status: Acute Plan to address problem: Resume home statin (7) DVT prophylaxis Current Visit: Yes Status: Acute Plan to address problem: Subcutaneous Lovenox 06/16/21 Patient with Covid-19 pneumonia, with acute respiratory failure. On supplemental Oxygen. ID Specialist following Blood glucose uncontrolled. Increase Lantus and Humalog doses. 06/17/21 Patient with Covid-19 pneumonia, with acute respiratory failure. On supplemental Oxygen at 5 l/min NC. ID Specialist following Blood glucose improved after increasing Lantus and Humalog doses. History Interval history: shortness of breath Cough Hospitalist Physical - Physical exam Narrative exam: Gen:Not in acute distress, sitting up in bed, HEENT:Normocephalic, atraumatic Neck:supple, no JVD Lungs: bilateral rales, no wheeze Heart:S1 and S2 reg, no murmurs, rubs or gallop Abd:Soft, non tender, non distended, normal bowel sounds Ext:No edema. no clubbing, no cyanosis Neuro:Awake, alert, oriented X 3, moves all ext, - Constitutional Vitals: Temp Pulse Resp BP Pulse Ox 98.5 F 86 13 147/103 95 06/16/21 20:00 06/17/21 03:01 06/17/21 03:31 06/17/21 10:02 06/17/21 07:56 General appearance: Present: obese HEART Score - HEART Score Troponin: Troponin T < 0.010 ng/mL (0.00-0.029) 06/14/21 20:28 Results - Labs CBC & Chem 7: 06/16/21 04:52 06/17/21 06:55 Labs: Laboratory Last Values WBC 7.6 K/mm3 (4.5-11.0) 06/16/21 04:52 RBC 4.70 M/mm3 (3.65-5.03) 06/16/21 04:52 Hgb 13.5 gm/dl (10.1-14.3) 06/16/21 04:52 Hct 41.4 % (30.3-42.9) 06/16/21 04:52 MCV 88 fl (79-97) 06/16/21 04:52 MCH 29 pg (28-32) 06/16/21 04:52 MCHC 33 % (30-34) 06/16/21 04:52 RDW 14.5 % (13.2-15.2) 06/16/21 04:52 Plt Count 296 K/mm3 (140-440) 06/16/21 04:52 Lymph % (Auto) 6.8 % (13.4-35.0) L 06/16/21 04:52 [place] % (Auto) 6.6 % (0.0-7.3) 06/16/21 04:52 Eos % (Auto) 0.0 % (0.0-4.3) 06/16/21 04:52 Baso % (Auto) 0.3 % (0.0-1.8) 06/16/21 04:52 Lymph # (Auto) 0.5 K/mm3 (1.2-5.4) L 06/16/21 04:52 [place] # (Auto) 0.5 K/mm3 (0.0-0.8) 06/16/21 04:52 Eos # (Auto) 0.0 K/mm3 (0.0-0.4) 06/16/21 04:52 Baso # (Auto) 0.0 K/mm3 (0.0-0.1) 06/16/21 04:52 Seg Neutrophils % 86.3 % (40.0-70.0) H 06/16/21 04:52 Seg Neutrophils # 6.5 K/mm3 (1.8-7.7) 06/16/21 04:52 D-Dimer 739.17 ng/mlDDU (0-234) H 06/17/21 08:57 Sodium 142 mmol/L (137-145) 06/17/21 06:55 Potassium 3.8 mmol/L (3.6-5.0) 06/17/21 06:55 Chloride 104.7 mmol/L (98-107) 06/17/21 06:55 Carbon Dioxide 32 mmol/L (22-30) H 06/17/21 06:55 Anion Gap 9 mmol/L 06/17/21 06:55 BUN 10 mg/dL (7-17) 06/17/21 06:55 Creatinine 0.6 mg/dL (0.6-1.2) 06/17/21 06:55 Estimated GFR > 60 ml/min 06/17/21 06:55 BUN/Creatinine Ratio 17 % 06/17/21 06:55 Glucose 106 mg/dL (65-100) H 06/17/21 06:55 POC Glucose 120 mg/dL (70-105) H 06/17/21 05:47 Calcium 8.7 mg/dL (8.4-10.2) 06/17/21 06:55 Ferritin 273.1 ng/mL (10.0-200.0) H 06/17/21 08:57 Total Bilirubin 0.30 mg/dL (0.1-1.2) 06/17/21 06:55 AST 26 units/L (5-40) 06/17/21 06:55 ALT 20 units/L (7-56) 06/17/21 06:55 Alkaline Phosphatase 93 units/L (35-129) 06/17/21 06:55 Lactate Dehydrogenase 377 units/L (91-180) H 06/17/21 08:57 Troponin T < 0.010 ng/mL (0.00-0.029) 06/14/21 20:28 C-Reactive Protein 4.60 mg/dL (0.00-1.30) H 06/17/21 08:57 NT-Pro-B Natriuret Pep 1205 pg/mL (0-900) H 06/14/21 20:28 Total Protein 6.7 g/dL (6.3-8.2) 06/17/21 06:55 Albumin 3.0 g/dL (3.9-5) L 06/17/21 06:55 Albumin/Globulin Ratio 0.8 % 06/17/21 06:55 Procalcitonin 0.15 ng/mL (<0.15) 06/14/21 20:44 Coronavirus (PCR) Positive (Negative) A 06/15/21 Unknown Active Medications - Current Medications Current Medications: Generic Name Dose Route Start Last Admin Trade Name Freq PRN Reason Stop Dose Admin Acetaminophen 650 mg 06/15/21 02:48 Acetaminophen 325 Mg Tab PO Q4H PRN Pain MILD(1-3)/Fever >100.5/SHI Al Hydrox/Mg Hydrox/Simethicone 30 ml 06/15/21 02:48 Alum-Mag Hydroxide-Simethicone [id number]/5ml Oral Liqd 30 Ml PO Q4H PRN Indigestion Dexamethasone 6 mg 06/17/21 10:00 06/17/21 10:02 Dexamethasone 4 Mg Tab PO 06/24/21 12:00 6 mg DAILY AROLDO Administration Enoxaparin Sodium 40 mg 06/15/21 10:00 06/17/21 10:03 Enoxaparin 40 Mg/0.4 Ml Inj SUB-Q 40 mg QDAY AROLDO Administration Famotidine 20 mg 06/15/21 10:00 06/17/21 10:02 Famotidine 20 Mg/2 Ml Inj IV 20 mg BID AROLDO Administration Ferrous Sulfate 325 mg 06/15/21 10:00 06/17/21 10:02 Ferrous Sulfate 325 Mg Tab PO 325 mg BID AROLDO Administration Gabapentin 300 mg 06/15/21 05:00 06/17/21 08:01 Gabapentin 300 Mg Cap PO 300 mg TID AROLDO Administration Hydralazine HCl 5 mg 06/15/21 03:37 Hydralazine 20 Mg/1 Ml Inj IV Q4H PRN Hypertension Sodium Chloride 1,000 mls @ 75 mls/hr 06/15/21 03:00 Nacl 0.9% 1000 Ml IV DIRECT AROLDO Azithromycin 500 mg in 250 mls @ 250 mls/hr 06/15/21 22:00 06/17/21 01:29 Zithromax/Ns IV 250 mls/hr Q24H AROLDO Administration Ceftriaxone Sodium 2 gm in 100 mls @ 200 mls/hr 06/15/21 22:00 06/17/21 00:57 Rocephin/Ns 2 Gm/100 Ml IV 200 mls/hr Q24H AROLDO Administration Protocol REMDESIVIR 100 mg/ Sodium 250 mls @ 500 mls/hr 06/16/21 21:00 06/16/21 22:40 Chloride IV 06/19/21 21:29 500 mls/hr Q24HR@2100 AROLDO Administration Ibuprofen 600 mg 06/15/21 02:48 Ibuprofen 600 Mg Tab PO Q6H PRN Pain, Mild (1-3) Insulin Glargine 30 units 06/15/21 22:00 06/16/21 22:39 Insulin Glargine 100 Units/Ml SUB-Q 30 units QHS [facility] Administration Insulin Human Lispro 14 unit 06/16/21 07:34 06/17/21 07:12 Insulin Lispro 100 Unit/Ml SUB-Q Not Given [facility] Levothyroxine Sodium 150 mcg 06/15/21 06:00 06/17/21 07:11 Levothyroxine 150 Mcg Tab PO 150 mcg QAM@0600 [facility] Administration Lisinopril 20 mg 06/15/21 10:00 06/17/21 10:02 Lisinopril 20 Mg Tab PO 20 mg QDAY [facility] Administration Magnesium Hydroxide 30 ml 06/15/21 02:48 Magnesium Hydroxide (Mom) Oral Liqd Udc PO Q4H PRN Constipation Naloxone HCl 0.1 mg 06/15/21 02:48 Naloxone 0.4 Mg/1 Ml Inj IV Q2MIN PRN Res Rate </= 8 or 02 SAT < 92% Ondansetron HCl 4 mg 06/15/21 02:48 Ondansetron 4 Mg/2 Ml Inj IV Q8H PRN Nausea And Vomiting Oxycodone/Acetaminophen 1 tab 06/15/21 02:48 Oxycodone /Acetaminophen 5-325mg Tab PO Q6H PRN Pain, Moderate (4-6) Pravastatin Sodium 40 mg 06/15/21 22:00 06/16/21 23:44 Pravastatin 40 Mg Tab PO 40 mg QHS AROLDO Administration Senna 8.6 mg 06/15/21 10:00 06/16/21 23:45 Sennosides 8.6 Mg Tab PO 8.6 mg Q12HR AROLDO Administration Sodium Chloride 10 ml 06/15/21 10:00 06/17/21 10:04 Sodium Chloride 0.9% 10 Ml Flush Syringe IV 10 ml BID AROLDO Administration Sodium Chloride 50 ml 06/15/21 16:00 06/16/21 23:45 Sodium Chloride 0.9% 50 Ml Ivpb IV 06/18/21 21:01 50 ml Q24HR@2100 AROLDO Administration Trazodone HCl 50 mg 06/15/21 03:04 Trazodone 50 Mg Tab PO QHS PRN Constipation
[2021-06-17] MEDS: SENNOSIDES 8.6 MG TAB PO SCH ×2 (13:39→21:19)
--- NOTE | 2021-06-17 14:35 | Cat Scan Report ---
CTA CHEST WITH CONTRAST INDICATION / CLINICAL INFORMATION: shortness of breath, elevated d-dimer OMNI 350 100 ML. TECHNIQUE: Axial CT images were obtained through the chest after injection of IV contrast. 3 plane AK P and/or 3D reconstructions were produced. All CT scans at this location are performed using CT dose reduction for ALARA by means of automated exposure control. COMPARISON: Radiograph dated 06/14/21 FINDINGS: PULMONARY ARTERIES: No pulmonary emboli. Mildly dilated main pulmonary artery measuring 3.3 cm in jonah meter. THORACIC AORTA: No significant abnormality. HEART: Moderately enlarged with left ventricular prominence. Tiny pericardial effusion measuring 10 m m adjacent to the right atrium. CORONARY ARTERY CALCIFICATION: None. MEDIASTINUM / EM: No significant abnormality. PLEURA: Tiny bilateral pleural effusions. No pneumothorax. LUNGS: Moderately extensive bilateral patchy pulmonary opacities. ADDITIONAL FINDINGS: Moderate body wall edema. UPPER ABDOMEN: Small amount of free fluid in the upper abdomen. Tiny calcified gallstones without gal lbladder inflammation. SKELETAL STRUCTURES: No significant osseous abnormality. IMPRESSION: 1. No CT evidence for pulmonary embolism. 2. Moderate bilateral pneumonia characteristic of atypical/viral pneumonia such as Covid pneumonia. 3. Tiny bilateral pleural effusions, tiny pericardial effusion, small amount of ascites, and body wal l edema which could represent anasarca or other fluid imbalance. 4. Mildly dilated main pulmonary artery which can be seen in pulmonary arterial hypertension. Signer Name: Reddy Lara MD Signed: 06/17/2021 2:31 PM Workstation Name: [id number]
[2021-06-17] MEDS: SODIUM CHLORIDE 0.9% 1000 ML 1,000 ML IV SCH (20:51)
[2021-06-17] MEDS: INSULIN GLARGINE 100 UNITS/ML SUB-Q SCH (22:25)
[2021-06-17] MEDS: PRAVASTATIN 40 MG TAB PO SCH (22:25)
[2021-06-17] MEDS: REMDESIVIR 100 MG in SODIUM CHLORIDE 0.9% 250ML 250 ML IV SCH (23:43)
[2021-06-17] MEDS: SODIUM CHLORIDE 0.9% 50 ML IVPB IV SCH (23:53)
[2021-06-18] MEDS: cefTRIAXone/NS 2 GM/100 ML 2 GM/100 ML BAG IV SCH ×2 (01:10→21:49)
[2021-06-18] MEDS: LEVOTHYROXINE 150 MCG TAB PO SCH (06:02)
[2021-06-18 08:58] LABS: Alanine Aminotransferase 19 units/L (7-56); Albumin 3.1 g/dL (3.9-5); Blood Urea Nitrogen 11 mg/dL (7-17); Calcium 8.7 mg/dL (8.4-10.2); Hemolysis Index 3
[2021-06-18 09:00] LABS: BUN/Creatinine Ratio 18
[2021-06-18] MEDS: INSULIN LISPRO 100 UNIT/ML SUB-Q SCH ×2 (09:27→19:03)
[2021-06-18] MEDS: GABAPENTIN 300 MG CAP PO SCH ×3 (09:27→20:24)
[2021-06-18] MEDS: FAMOTIDINE 20 MG/2 ML INJ IV SCH ×2 (10:09→21:51)
[2021-06-18] MEDS: SENNOSIDES 8.6 MG TAB PO SCH ×2 (10:09→22:10)
[2021-06-18] MEDS: LISINOPRIL 20 MG TAB PO SCH (10:09)
[2021-06-18] MEDS: ENOXAPARIN 40 MG/0.4 ML INJ SUB-Q SCH (10:09)
[2021-06-18] MEDS: DEXAMETHASONE 4 MG TAB PO SCH (10:09)
[2021-06-18] MEDS: FERROUS SULFATE 325 MG TAB PO SCH ×2 (10:09→21:51)
[2021-06-18] MEDS ORDERED: INSULIN LISPRO 100 UNIT/ML SUB-Q SCH (11:30)
--- NOTE | 2021-06-18 12:50 | Progress Note ---
Assessment and Plan Assessment and plan: (1) COVID-19 Current Visit: Yes Status: Acute Plan to address problem: Airborne and contact isolation per Covid protocol Monitor inflammatory markers Encourage use of incentive spirometer and prone position Empiric antibiotic with azithromycin Rocephin Infectious disease consultedfollow-up with recommendation Ascorbic acid, zinc sulfate, vitamin D supplement, and Decadron. Continue oxygen supplement to keep this O2 sat greater than 92% (2) Pneumonia Current Visit: Yes Status: Acute Qualifiers: Pneumonia type: due to unspecified organism Laterality: bilateral Lung location: unspecified part of lung Qualified Code(s): J18.9 - Pneumonia, unspecified organism Plan to address problem: Continue empiric antibiotic Chest x-ray reviewed bilateral pneumonia (3) Acute respiratory failure with hypoxia Current Visit: Yes Status: Acute Plan to address problem: Bronchodilator, systemic steroid and oxygen supplement EKGs and chest x-ray (4) Diabetes, type 1.5, controlled, managed as type 2 Current Visit: Yes Status: Acute Plan to address problem: Monitor blood sugar with sliding scale protocol Continue basal insulin Check hemoglobin A1c (5) Essential hypertension Current Visit: Yes Status: Acute Plan to address problem: Monitor blood pressure Resume home antihypertensive As needed hydralazine (6) High cholesterol Current Visit: Yes Status: Acute Plan to address problem: Resume home statin (7) DVT prophylaxis Current Visit: Yes Status: Acute Plan to address problem: Subcutaneous Lovenox 06/16/21 Patient with Covid-19 pneumonia, with acute respiratory failure. On supplemental Oxygen. ID Specialist following Blood glucose uncontrolled. Increase Lantus and Humalog doses. 06/17/21 Patient with Covid-19 pneumonia, with acute respiratory failure. On supplemental Oxygen at 5 l/min NC. ID Specialist following Blood glucose improved after increasing Lantus and Humalog doses. 06/18/21 Patient with Covid-19 pneumonia, with acute respiratory failure. On supplemental Oxygen, still at 5 l/min NC. ID Specialist following Episodes of hypoglycemia. Will decrease Insulin dose History Interval history: shortness of breath Cough Hospitalist Physical - Physical exam Narrative exam: Gen:Not in acute distress, sitting up in bed, HEENT:Normocephalic, atraumatic Neck:supple, no JVD Lungs: bilateral rales, no wheeze Heart:S1 and S2 reg, no murmurs, rubs or gallop Abd:Soft, non tender, non distended, normal bowel sounds Ext:No edema. no clubbing, no cyanosis Neuro:Awake, alert, oriented X 3, moves all ext, - Constitutional Vitals: Temp Pulse Resp BP Pulse Ox 98.5 F 79 10 L 154/112 100 06/16/21 20:00 06/18/21 10:31 06/18/21 10:31 06/18/21 10:31 06/18/21 10:31 General appearance: Present: obese HEART Score - HEART Score Troponin: Troponin T < 0.010 ng/mL (0.00-0.029) 06/14/21 20:28 Results - Labs CBC & Chem 7: 06/16/21 04:52 06/18/21 07:07 Labs: Laboratory Last Values WBC 7.6 K/mm3 (4.5-11.0) 06/16/21 04:52 RBC 4.70 M/mm3 (3.65-5.03) 06/16/21 04:52 Hgb 13.5 gm/dl (10.1-14.3) 06/16/21 04:52 Hct 41.4 % (30.3-42.9) 06/16/21 04:52 MCV 88 fl (79-97) 06/16/21 04:52 MCH 29 pg (28-32) 06/16/21 04:52 MCHC 33 % (30-34) 06/16/21 04:52 RDW 14.5 % (13.2-15.2) 06/16/21 04:52 Plt Count 296 K/mm3 (140-440) 06/16/21 04:52 Lymph % (Auto) 6.8 % (13.4-35.0) L 06/16/21 04:52 [place] % (Auto) 6.6 % (0.0-7.3) 06/16/21 04:52 Eos % (Auto) 0.0 % (0.0-4.3) 06/16/21 04:52 Baso % (Auto) 0.3 % (0.0-1.8) 06/16/21 04:52 Lymph # (Auto) 0.5 K/mm3 (1.2-5.4) L 06/16/21 04:52 [place] # (Auto) 0.5 K/mm3 (0.0-0.8) 06/16/21 04:52 Eos # (Auto) 0.0 K/mm3 (0.0-0.4) 06/16/21 04:52 Baso # (Auto) 0.0 K/mm3 (0.0-0.1) 06/16/21 04:52 Seg Neutrophils % 86.3 % (40.0-70.0) H 06/16/21 04:52 Seg Neutrophils # 6.5 K/mm3 (1.8-7.7) 06/16/21 04:52 D-Dimer 739.17 ng/mlDDU (0-234) H 06/17/21 08:57 Sodium 145 mmol/L (137-145) 06/18/21 07:07 Potassium 3.7 mmol/L (3.6-5.0) 06/18/21 07:07 Chloride 106.1 mmol/L (98-107) 06/18/21 07:07 Carbon Dioxide 31 mmol/L (22-30) H 06/18/21 07:07 Anion Gap 12 mmol/L 06/18/21 07:07 BUN 11 mg/dL (7-17) 06/18/21 07:07 Creatinine 0.6 mg/dL (0.6-1.2) 06/18/21 07:07 Estimated GFR > 60 ml/min 06/18/21 07:07 BUN/Creatinine Ratio 18 % 06/18/21 07:07 Glucose 85 mg/dL (65-100) 06/18/21 07:07 POC Glucose 67 mg/dL (70-105) L 06/18/21 11:25 Calcium 8.7 mg/dL (8.4-10.2) 06/18/21 07:07 Ferritin 273.1 ng/mL (10.0-200.0) H 06/17/21 08:57 Total Bilirubin 0.20 mg/dL (0.1-1.2) 06/18/21 07:07 AST 23 units/L (5-40) 06/18/21 07:07 ALT 19 units/L (7-56) 06/18/21 07:07 Alkaline Phosphatase 100 units/L (35-129) 06/18/21 07:07 Lactate Dehydrogenase 377 units/L (91-180) H 06/17/21 08:57 Troponin T < 0.010 ng/mL (0.00-0.029) 06/14/21 20:28 C-Reactive Protein 4.60 mg/dL (0.00-1.30) H 06/17/21 08:57 NT-Pro-B Natriuret Pep 1205 pg/mL (0-900) H 06/14/21 20:28 Total Protein 6.3 g/dL (6.3-8.2) 06/18/21 07:07 Albumin 3.1 g/dL (3.9-5) L 06/18/21 07:07 Albumin/Globulin Ratio 1.0 % 06/18/21 07:07 Procalcitonin 0.15 ng/mL (<0.15) 06/14/21 20:44 Coronavirus (PCR) Positive (Negative) A 06/15/21 Unknown Active Medications - Current Medications Current Medications: Generic Name Dose Route Start Last Admin Trade Name Freq PRN Reason Stop Dose Admin Acetaminophen 650 mg 06/15/21 02:48 Acetaminophen 325 Mg Tab PO Q4H PRN Pain MILD(1-3)/Fever >100.5/SHI Al Hydrox/Mg Hydrox/Simethicone 30 ml 06/15/21 02:48 Alum-Mag Hydroxide-Simethicone [id number]/5ml Oral Liqd 30 Ml PO Q4H PRN Indigestion Dexamethasone 6 mg 06/17/21 10:00 06/18/21 10:09 Dexamethasone 4 Mg Tab PO 06/24/21 12:00 6 mg DAILY AROLDO Administration Enoxaparin Sodium 40 mg 06/15/21 10:00 06/18/21 10:09 Enoxaparin 40 Mg/0.4 Ml Inj SUB-Q 40 mg QDAY AROLDO Administration Famotidine 20 mg 06/15/21 10:00 06/18/21 10:09 Famotidine 20 Mg/2 Ml Inj IV 20 mg BID AROLDO Administration Ferrous Sulfate 325 mg 06/15/21 10:00 06/18/21 10:09 Ferrous Sulfate 325 Mg Tab PO 325 mg BID AROLDO Administration Gabapentin 300 mg 06/15/21 05:00 06/18/21 09:27 Gabapentin 300 Mg Cap PO 300 mg TID AROLDO Administration Hydralazine HCl 5 mg 06/15/21 03:37 Hydralazine 20 Mg/1 Ml Inj IV Q4H PRN Hypertension Sodium Chloride 1,000 mls @ 75 mls/hr 06/15/21 03:00 06/17/21 20:51 Nacl 0.9% 1000 Ml IV 75 mls/hr DIRECT AROLDO Administration Azithromycin 500 mg in 250 mls @ 250 mls/hr 06/15/21 22:00 06/17/21 21:03 Zithromax/Ns IV 06/18/21 22:59 250 mls/hr Q24H AROLDO Administration Ceftriaxone Sodium 2 gm in 100 mls @ 200 mls/hr 06/15/21 22:00 06/18/21 01:10 Rocephin/Ns 2 Gm/100 Ml IV 06/18/21 22:29 200 mls/hr Q24H AROLDO Administration Protocol REMDESIVIR 100 mg/ Sodium 250 mls @ 500 mls/hr 06/16/21 21:00 06/17/21 23:43 Chloride IV 06/19/21 21:29 500 mls/hr Q24HR@2100 AROLDO Administration Ibuprofen 600 mg 06/15/21 02:48 Ibuprofen 600 Mg Tab PO Q6H PRN Pain, Mild (1-3) Insulin Glargine 16 units 06/18/21 22:00 Insulin Glargine 100 Units/Ml SUB-Q QHS [facility] Insulin Human Lispro 10 unit 06/18/21 11:30 Insulin Lispro 100 Unit/Ml SUB-Q AC [facility] Levothyroxine Sodium 150 mcg 06/15/21 06:00 06/18/21 06:02 Levothyroxine 150 Mcg Tab PO 150 mcg QAM@0600 [facility] Administration Lisinopril 20 mg 06/15/21 10:00 06/18/21 10:09 Lisinopril 20 Mg Tab PO 20 mg QDAY [facility] Administration Magnesium Hydroxide 30 ml 06/15/21 02:48 Magnesium Hydroxide (Mom) Oral Liqd Udc PO Q4H PRN Constipation Naloxone HCl 0.1 mg 06/15/21 02:48 Naloxone 0.4 Mg/1 Ml Inj IV Q2MIN PRN Res Rate </= 8 or 02 SAT < 92% Ondansetron HCl 4 mg 06/15/21 02:48 Ondansetron 4 Mg/2 Ml Inj IV Q8H PRN Nausea And Vomiting Oxycodone/Acetaminophen 1 tab 06/15/21 02:48 Oxycodone /Acetaminophen 5-325mg Tab PO Q6H PRN Pain, Moderate (4-6) Pravastatin Sodium 40 mg 06/15/21 22:00 06/17/21 22:25 Pravastatin 40 Mg Tab PO 40 mg QHS AROLDO Administration Senna 8.6 mg 06/15/21 10:00 06/18/21 10:09 Sennosides 8.6 Mg Tab PO Not Given Q12HR AROLDO Sodium Chloride 10 ml 06/15/21 10:00 06/18/21 10:09 Sodium Chloride 0.9% 10 Ml Flush Syringe IV 10 ml BID AROLDO Administration Sodium Chloride 50 ml 06/15/21 16:00 06/17/21 23:53 Sodium Chloride 0.9% 50 Ml Ivpb IV 06/18/21 21:01 Not Given Q24HR@2100 AROLDO Trazodone HCl 50 mg 06/15/21 03:04 Trazodone 50 Mg Tab PO QHS PRN Constipation
[2021-06-18] MEDS: oxyCODONE /ACETAMINOPHEN 5-325MG TAB PO PRN (15:34)
[2021-06-18] MEDS: REMDESIVIR 100 MG in SODIUM CHLORIDE 0.9% 250ML 250 ML IV SCH (20:30)
[2021-06-18] MEDS: SODIUM CHLORIDE 0.9% 50 ML IVPB IV SCH (20:30)
[2021-06-18] MEDS: INSULIN GLARGINE 100 UNITS/ML SUB-Q SCH (22:07)
[2021-06-18] MEDS: PRAVASTATIN 40 MG TAB PO SCH (22:09)
[2021-06-18] MEDS: AZITHROMYCIN/NS 500 MG/250 ML 500 MG/250 ML BAG IV SCH (22:34)
[2021-06-19] MEDS: SODIUM CHLORIDE 0.9% 1000 ML 1,000 ML IV SCH ×2 (03:09→20:14)
[2021-06-19] MEDS: LEVOTHYROXINE 150 MCG TAB PO SCH (06:32)
[2021-06-19] MEDS: INSULIN LISPRO 100 UNIT/ML SUB-Q SCH ×3 (08:25→20:22)
[2021-06-19] MEDS: GABAPENTIN 300 MG CAP PO SCH ×3 (09:47→20:17)
--- NOTE | 2021-06-19 09:53 | Progress Note ---
Assessment and Plan Assessment and plan: (1) COVID-19 Current Visit: Yes Status: Acute Plan to address problem: Airborne and contact isolation per Covid protocol Monitor inflammatory markers Encourage use of incentive spirometer and prone position Empiric antibiotic with azithromycin Rocephin Infectious disease consultedfollow-up with recommendation Ascorbic acid, zinc sulfate, vitamin D supplement, and Decadron. Continue oxygen supplement to keep this O2 sat greater than 92% (2) Pneumonia Current Visit: Yes Status: Acute Qualifiers: Pneumonia type: due to unspecified organism Laterality: bilateral Lung location: unspecified part of lung Qualified Code(s): J18.9 - Pneumonia, unspecified organism Plan to address problem: Continue empiric antibiotic Chest x-ray reviewed bilateral pneumonia (3) Acute respiratory failure with hypoxia Current Visit: Yes Status: Acute Plan to address problem: Bronchodilator, systemic steroid and oxygen supplement EKGs and chest x-ray (4) Diabetes, type 1.5, controlled, managed as type 2 Current Visit: Yes Status: Acute Plan to address problem: Monitor blood sugar with sliding scale protocol Continue basal insulin Check hemoglobin A1c (5) Essential hypertension Current Visit: Yes Status: Acute Plan to address problem: Monitor blood pressure Resume home antihypertensive As needed hydralazine (6) High cholesterol Current Visit: Yes Status: Acute Plan to address problem: Resume home statin (7) DVT prophylaxis Current Visit: Yes Status: Acute Plan to address problem: Subcutaneous Lovenox 06/16/21 Patient with Covid-19 pneumonia, with acute respiratory failure. On supplemental Oxygen. ID Specialist following Blood glucose uncontrolled. Increase Lantus and Humalog doses. 06/17/21 Patient with Covid-19 pneumonia, with acute respiratory failure. On supplemental Oxygen at 5 l/min NC. ID Specialist following Blood glucose improved after increasing Lantus and Humalog doses. 06/18/21 Patient with Covid-19 pneumonia, with acute respiratory failure. On supplemental Oxygen, still at 5 l/min NC. ID Specialist following Episodes of hypoglycemia. Will decrease Insulin dose 06/18/21 Patient with Covid-19 pneumonia, with acute respiratory failure. On supplemental Oxygen, now at 4 l/min NC. ID Specialist following Patient has diabetes. Initially glucose was high and Lanus and Humalog increased but she developed hypoglycemia so dose reduced. Not stable for discharge yest. Hopefully ready for dc in few days. History Interval history: Still has shortness of breath Still Coughing Hospitalist Physical - Physical exam Narrative exam: Gen:Not in acute distress, lying in bed HEENT:Normocephalic, atraumatic Neck:supple, no JVD Lungs: bilateral rales, no wheeze Heart:S1 and S2 reg, no murmurs, rubs or gallop Abd:Soft, non tender, non distended, normal bowel sounds Ext:No edema. no clubbing, no cyanosis Neuro:Awake, alert, oriented X 3, moves all ext, - Constitutional Vitals: Temp Pulse Resp BP Pulse Ox 98.3 F 78 20 134/87 96 06/19/21 04:48 06/19/21 04:48 06/19/21 05:16 06/19/21 04:48 06/19/21 05:16 General appearance: Present: obese HEART Score - HEART Score Troponin: Troponin T < 0.010 ng/mL (0.00-0.029) 06/14/21 20:28 Results - Labs CBC & Chem 7: 06/16/21 04:52 06/18/21 07:07 Labs: Laboratory Last Values WBC 7.6 K/mm3 (4.5-11.0) 06/16/21 04:52 RBC 4.70 M/mm3 (3.65-5.03) 06/16/21 04:52 Hgb 13.5 gm/dl (10.1-14.3) 06/16/21 04:52 Hct 41.4 % (30.3-42.9) 06/16/21 04:52 MCV 88 fl (79-97) 06/16/21 04:52 MCH 29 pg (28-32) 06/16/21 04:52 MCHC 33 % (30-34) 06/16/21 04:52 RDW 14.5 % (13.2-15.2) 06/16/21 04:52 Plt Count 296 K/mm3 (140-440) 06/16/21 04:52 Lymph % (Auto) 6.8 % (13.4-35.0) L 06/16/21 04:52 [place] % (Auto) 6.6 % (0.0-7.3) 06/16/21 04:52 Eos % (Auto) 0.0 % (0.0-4.3) 06/16/21 04:52 Baso % (Auto) 0.3 % (0.0-1.8) 06/16/21 04:52 Lymph # (Auto) 0.5 K/mm3 (1.2-5.4) L 06/16/21 04:52 [place] # (Auto) 0.5 K/mm3 (0.0-0.8) 06/16/21 04:52 Eos # (Auto) 0.0 K/mm3 (0.0-0.4) 06/16/21 04:52 Baso # (Auto) 0.0 K/mm3 (0.0-0.1) 06/16/21 04:52 Seg Neutrophils % 86.3 % (40.0-70.0) H 06/16/21 04:52 Seg Neutrophils # 6.5 K/mm3 (1.8-7.7) 06/16/21 04:52 D-Dimer 739.17 ng/mlDDU (0-234) H 06/17/21 08:57 Sodium 145 mmol/L (137-145) 06/18/21 07:07 Potassium 3.7 mmol/L (3.6-5.0) 06/18/21 07:07 Chloride 106.1 mmol/L (98-107) 06/18/21 07:07 Carbon Dioxide 31 mmol/L (22-30) H 06/18/21 07:07 Anion Gap 12 mmol/L 06/18/21 07:07 BUN 11 mg/dL (7-17) 06/18/21 07:07 Creatinine 0.6 mg/dL (0.6-1.2) 06/18/21 07:07 Estimated GFR > 60 ml/min 06/18/21 07:07 BUN/Creatinine Ratio 18 % 06/18/21 07:07 Glucose 85 mg/dL (65-100) 06/18/21 07:07 POC Glucose 138 mg/dL (70-105) H 06/18/21 22:09 Hemoglobin A1c 12.4 % (4-6) H 06/18/21 13:02 Calcium 8.7 mg/dL (8.4-10.2) 06/18/21 07:07 Ferritin 273.1 ng/mL (10.0-200.0) H 06/17/21 08:57 Total Bilirubin 0.20 mg/dL (0.1-1.2) 06/18/21 07:07 AST 23 units/L (5-40) 06/18/21 07:07 ALT 19 units/L (7-56) 06/18/21 07:07 Alkaline Phosphatase 100 units/L (35-129) 06/18/21 07:07 Lactate Dehydrogenase 377 units/L (91-180) H 06/17/21 08:57 Troponin T < 0.010 ng/mL (0.00-0.029) 06/14/21 20:28 C-Reactive Protein 4.60 mg/dL (0.00-1.30) H 06/17/21 08:57 NT-Pro-B Natriuret Pep 1205 pg/mL (0-900) H 06/14/21 20:28 Total Protein 6.3 g/dL (6.3-8.2) 06/18/21 07:07 Albumin 3.1 g/dL (3.9-5) L 06/18/21 07:07 Albumin/Globulin Ratio 1.0 % 06/18/21 07:07 Procalcitonin 0.15 ng/mL (<0.15) 06/14/21 20:44 Coronavirus (PCR) Positive (Negative) A 06/15/21 Unknown Streeter/IV: Voiding Method Toilet Active Medications - Current Medications Current Medications: Generic Name Dose Route Start Last Admin Trade Name Freq PRN Reason Stop Dose Admin Acetaminophen 650 mg 06/15/21 02:48 Acetaminophen 325 Mg Tab PO Q4H PRN Pain MILD(1-3)/Fever >100.5/SHI Al Hydrox/Mg Hydrox/Simethicone 30 ml 06/15/21 02:48 Alum-Mag Hydroxide-Simethicone [id number]/5ml Oral Liqd 30 Ml PO Q4H PRN Indigestion Dexamethasone 6 mg 06/17/21 10:00 06/18/21 10:09 Dexamethasone 4 Mg Tab PO 06/24/21 12:00 6 mg DAILY AROLDO Administration Enoxaparin Sodium 40 mg 06/15/21 10:00 06/18/21 10:09 Enoxaparin 40 Mg/0.4 Ml Inj SUB-Q 40 mg QDAY AROLDO Administration Famotidine 20 mg 06/19/21 10:00 Famotidine 20 Mg Tab PO BID AROLDO Ferrous Sulfate 325 mg 06/15/21 10:00 06/18/21 21:51 Ferrous Sulfate 325 Mg Tab PO 325 mg BID AROLDO Administration Gabapentin 300 mg 06/15/21 05:00 06/18/21 20:24 Gabapentin 300 Mg Cap PO 300 mg TID AROLDO Administration Hydralazine HCl 5 mg 06/15/21 03:37 Hydralazine 20 Mg/1 Ml Inj IV Q4H PRN Hypertension Sodium Chloride 1,000 mls @ 75 mls/hr 06/15/21 03:00 06/19/21 03:09 Nacl 0.9% 1000 Ml IV 75 mls/hr DIRECT AROLDO Administration REMDESIVIR 100 mg/ Sodium 250 mls @ 500 mls/hr 06/16/21 21:00 06/18/21 20:30 Chloride IV 06/19/21 21:29 500 mls/hr Q24HR@2100 [facility] Administration Ibuprofen 600 mg 06/15/21 02:48 Ibuprofen 600 Mg Tab PO Q6H PRN Pain, Mild (1-3) Insulin Glargine 16 units 06/18/21 22:00 06/18/21 22:07 Insulin Glargine 100 Units/Ml SUB-Q 16 units QHS [facility] Administration Insulin Human Lispro 6 unit 06/18/21 17:00 06/18/21 19:03 Insulin Lispro 100 Unit/Ml SUB-Q Not Given [facility] Levothyroxine Sodium 150 mcg 06/15/21 06:00 06/19/21 06:32 Levothyroxine 150 Mcg Tab PO 150 mcg QAM@0600 [facility] Administration Lisinopril 20 mg 06/15/21 10:00 06/18/21 10:09 Lisinopril 20 Mg Tab PO 20 mg QDAY [facility] Administration Magnesium Hydroxide 30 ml 06/15/21 02:48 Magnesium Hydroxide (Mom) Oral Liqd Udc PO Q4H PRN Constipation Naloxone HCl 0.1 mg 06/15/21 02:48 Naloxone 0.4 Mg/1 Ml Inj IV Q2MIN PRN Res Rate </= 8 or 02 SAT < 92% Ondansetron HCl 4 mg 06/15/21 02:48 Ondansetron 4 Mg/2 Ml Inj IV Q8H PRN Nausea And Vomiting Oxycodone/Acetaminophen 1 tab 06/15/21 02:48 06/18/21 15:34 Oxycodone /Acetaminophen 5-325mg Tab PO 1 tab Q6H PRN Administration Pain, Moderate (4-6) Pravastatin Sodium 40 mg 06/15/21 22:00 06/18/21 22:09 Pravastatin 40 Mg Tab PO 40 mg QHS AROLDO Administration Senna 8.6 mg 06/15/21 10:00 06/18/21 22:10 Sennosides 8.6 Mg Tab PO 8.6 mg Q12HR AROLDO Administration Sodium Chloride 10 ml 06/15/21 10:00 06/18/21 22:34 Sodium Chloride 0.9% 10 Ml Flush Syringe IV 10 ml BID AROLDO Administration Trazodone HCl 50 mg 06/15/21 03:04 Trazodone 50 Mg Tab PO QHS PRN Constipation
[2021-06-19 10:19] LABS: C-Reactive Protein 3.1 mg/dL (0.00-1.30)
--- NOTE | 2021-06-19 10:26 | Progress Note ---
Assessment and Plan Cultures: SARS CoV2 PCR: positive A/P: 81-year-old female with diabetes, hypertension, hyperlipidemia: WBC 4.5, D-dimer 488, ferritin 412, CRP 9.4, LDH 394 #Bilateral pneumonia due to COVID-19. Unvaccinated. #Acute hypoxic respiratory failure: on 4L NC. #Obesity #Diabetes with hyperglycemia Recs: continue IV/PO Dexamethasone x 10 days continue IV remdesivir x 5 days prophylactic anticoagulation based on d-dimer per hospital protocol Low procalcitonin, no antibiotics required. trend ferritin, d-dimer, CRP every 2-3 days Holli Chapa MD [facility] ([facility]) O: [phone] F: [phone] Subjective Date of service: 06/19/21 Interval history: Afebrile, normal white count. Imaging personally reviewed: Chest CTA: No evidence of pulmonary embolism, moderate bilateral pneumonia Objective - Exam Narrative Exam: Physical exam deferred to reduce risk of transmission of COVID-19. Please refer to primary team's note. - Constitutional Vitals: Vital Signs Temp Pulse Resp BP Pulse Ox 98.3 F 78 20 134/87 95 06/19/21 04:48 06/19/21 04:48 06/19/21 05:16 06/19/21 04:48 06/19/21 10:07 Temperature -Last 24 Hours Temperature 98.3 F - Labs CBC & Chem 7: 06/16/21 04:52 06/18/21 07:07 Labs: Abnormal lab results 06/18/21 06/18/21 06/18/21 Range/Units 11:25 13:02 22:09 POC Glucose 67 L 138 H (70-105) mg/dL Hemoglobin A1c 12.4 H (4-6) % Lactate Dehydrogenase (91-180) units/L C-Reactive Protein (0.00-1.30) mg/dL 06/19/21 Range/Units 09:09 POC Glucose (70-105) mg/dL Hemoglobin A1c (4-6) % Lactate Dehydrogenase 411 H (91-180) units/L C-Reactive Protein 3.10 H (0.00-1.30) mg/dL
[2021-06-19] MEDS: FERROUS SULFATE 325 MG TAB PO SCH ×2 (10:45→21:35)
[2021-06-19] MEDS: FAMOTIDINE 20 MG TAB PO SCH ×2 (10:47→21:35)
[2021-06-19] MEDS: DEXAMETHASONE 4 MG TAB PO SCH (10:48)
[2021-06-19] MEDS: LISINOPRIL 20 MG TAB PO SCH (11:48)
[2021-06-19] MEDS: oxyCODONE /ACETAMINOPHEN 5-325MG TAB PO PRN (12:45)
[2021-06-19] MEDS: ENOXAPARIN 40 MG/0.4 ML INJ SUB-Q SCH (12:49)
[2021-06-19] MEDS: SENNOSIDES 8.6 MG TAB PO SCH ×2 (12:50→21:35)
[2021-06-19] MEDS: PRAVASTATIN 40 MG TAB PO SCH (21:35)
[2021-06-19] MEDS: REMDESIVIR 100 MG in SODIUM CHLORIDE 0.9% 250ML 250 ML IV SCH (21:36)
[2021-06-19] MEDS: INSULIN GLARGINE 100 UNITS/ML SUB-Q SCH (21:40)
[2021-06-20 06:23] VITALS: BP 154/102
[2021-06-20] MEDS: LEVOTHYROXINE 150 MCG TAB PO SCH (06:54)
[2021-06-20 07:40] LABS: Hematocrit 37.4 % (30.3-42.9); Hemoglobin 12.3 gm/dl (10.1-14.3); Mean Corpuscular HGB Conc 33 % (30-34); Mean Corpuscular Volume 88 fl (79-97); Platelet Count 306 K/mm3 (140-440); Red Blood Count 4.26 M/mm3 (3.65-5.03); Red Cell Distribution Width 14.4 % (13.2-15.2)
[2021-06-20 07:59] LABS: Blood Urea Nitrogen 11 mg/dL (7-17); Calcium 8.5 mg/dL (8.4-10.2); Hemolysis Index 34
[2021-06-20 08:02] LABS: BUN/Creatinine Ratio 18
--- NOTE | 2021-06-20 08:03 | Discharge Summary ---
Providers - Providers Date of Admission: 06/15/21 11:16 Date of discharge: 06/20/21 Attending physician: JONELLE PIZARRO 06/15/21 02:48 Consult to Physician [CONS] Stat Comment: Consulting Provider: MAX GUZMAN Physician Instructions: Reason For Exam: covid Primary care physician: [employer] [facility] Hospitalization Reason for admission: COVID-19 positive test (U07.1, COVID-19) with Acute Pneumonia (J12.89, O Condition: Critical Hospital course: 51-year-old unvaccinated for cold female with past medical history of diabetes, hypertension, hyperlipidemia who was admitted with diagnosis of bilateral pneumonia secondary to COVID-19, acute hypoxic respiratory failure, diabetes, uncontrolled and obesity. The patient was treated with IV dexamethasone and IV remdesivir. No antibiotics required given low procalcitonin. The patient initially required 5 L of oxygen but was weaned to room air and stabilized. Patient will have exercise pulse oximetry testing prior to discharge and will discharge home with O2 as needed. Dedicated discharge time 35 minutes. Disposition: 01 HOME / SELF CARE / HOMELESS Final Discharge Diagnosis (Prints w/discharge instructions): COVID-19 pneumonia, diabetes noticed uncontrolled, acute hypoxic respiratory failure Core Measure Documentation - Palliative Care Palliative Care/ Comfort Measures: Not Applicable - Core Measures Any of the following diagnoses?: none Exam - Constitutional Vitals: Temp Pulse Resp BP Pulse Ox 98.3 F 84 19 154/102 95 06/20/21 05:39 06/20/21 05:39 06/20/21 06:45 06/20/21 05:39 06/20/21 06:45 General appearance: Present: no acute distress, well-nourished - EENT Eyes: Present: PERRL ENT: hearing intact, clear oral mucosa - Neck Neck: Present: supple, normal ROM - Respiratory Respiratory effort: normal Respiratory: bilateral: CTA - Cardiovascular Heart Sounds: Present: S1 & S2. Absent: rub, click - Extremities Extremities: pulses symmetrical, No edema Peripheral Pulses: within normal limits - Abdominal General gastrointestinal: Present: soft, non-tender, non-distended, normal bowel sounds Female genitourinary: Present: normal - Integumentary Integumentary: Present: clear, warm, dry - Musculoskeletal Musculoskeletal: gait normal, strength equal bilaterally - Psychiatric Psychiatric: appropriate mood/affect, intact judgment & insight - Neurologic Neurologic: CNII-XII intact, moves all extremities Plan Activity: advance as tolerated Weight Bearing Status: Weight Bear as Tolerated Diet: diabetic Durable Medical Equipment Needed Upon Discharge: Oxygen Follow up with: PRIMARY CARE, [Primary Care Provider] - 7 Days Prescriptions: dexAMETHasone [Decadron] 6 mg PO DAILY #6 tablet Gabapentin 300 mg PO TID #60 cap Levothyroxine [Synthroid] 150 mcg PO QAM #30 Lisinopril/Hydrochlorothiazide [Zestoretic 20-25 mg] 1 tab PO QDAY #15 tab
[2021-06-20] MEDS: GABAPENTIN 300 MG CAP PO SCH (09:47)
--- NOTE | 2021-06-20 10:15 | Progress Note ---
Assessment and Plan Cultures: SARS CoV2 PCR: positive A/P: 81-year-old female with diabetes, hypertension, hyperlipidemia: WBC 4.5, D-dimer 488, ferritin 412, CRP 9.4, LDH 394 #Bilateral pneumonia due to COVID-19. Unvaccinated. #Acute hypoxic respiratory failure: on 4L NC. #Obesity #Diabetes with hyperglycemia Recs: continue IV/PO Dexamethasone x 10 days Completed remdesivir prophylactic anticoagulation based on d-dimer per hospital protocol Low procalcitonin, no antibiotics required. trend ferritin, d-dimer, CRP every 2-3 days ID will sign off. Please call if questions. Holli Chapa MD [facility] ([facility]) O: [phone] F: [phone] Subjective Date of service: 06/20/21 Interval history: Afebrile, normal white count. ON 4L NC. Objective - Exam Narrative Exam: Physical exam deferred to reduce risk of transmission of COVID-19. Please refer to primary team's note. - Constitutional Vitals: Vital Signs Temp Pulse Resp BP Pulse Ox 98.3 F 84 19 154/102 100 06/20/21 05:39 06/20/21 05:39 06/20/21 06:45 06/20/21 05:39 06/20/21 09:31 Temperature -Last 24 Hours Temperature 98.3 F Temperature 99.1 F Temperature 98.9 F - Labs CBC & Chem 7: 06/20/21 06:50 06/20/21 06:50 Labs: Abnormal lab results 06/19/21 06/19/21 06/19/21 Range/Units 09:09 09:09 09:09 D-Dimer 847.68 H (0-234) ng/mlDDU Potassium (3.6-5.0) mmol/L POC Glucose (70-105) mg/dL Ferritin 257.2 H (10.0-200.0) ng/mL Lactate Dehydrogenase 411 H (91-180) units/L C-Reactive Protein 3.10 H (0.00-1.30) mg/dL 06/19/21 06/19/21 06/19/21 Range/Units 12:38 16:29 20:35 D-Dimer (0-234) ng/mlDDU Potassium (3.6-5.0) mmol/L POC Glucose 161 H 111 H 118 H (70-105) mg/dL Ferritin (10.0-200.0) ng/mL Lactate Dehydrogenase (91-180) units/L C-Reactive Protein (0.00-1.30) mg/dL 06/20/21 Range/Units 06:50 D-Dimer (0-234) ng/mlDDU Potassium 3.5 L (3.6-5.0) mmol/L POC Glucose (70-105) mg/dL Ferritin (10.0-200.0) ng/mL Lactate Dehydrogenase (91-180) units/L C-Reactive Protein (0.00-1.30) mg/dL
[2021-06-20] MEDS: FAMOTIDINE 20 MG TAB PO SCH (10:48)
[2021-06-20] MEDS: SENNOSIDES 8.6 MG TAB PO SCH (10:49)
[2021-06-20] MEDS: FERROUS SULFATE 325 MG TAB PO SCH (10:49)
[2021-06-20] MEDS: DEXAMETHASONE 4 MG TAB PO SCH (11:49)
[2021-06-20] MEDS: LISINOPRIL 20 MG TAB PO SCH (12:48)
[2021-06-20] MEDS: ENOXAPARIN 40 MG/0.4 ML INJ SUB-Q SCH (12:50)
[2021-06-20] MEDS: oxyCODONE /ACETAMINOPHEN 5-325MG TAB PO PRN (12:52)
[2021-06-20] MEDS: INSULIN LISPRO 100 UNIT/ML SUB-Q SCH (12:59)
== END 2021-06-20 20:40 | disposition home or self-care (01) | DRG 177 ==
LOC: ED 18:35 → 3A 06-15 02:37 → OBSVTOIN 06-15 11:16 → 3A 06-19 02:54
PROVIDERS: ADMIT Hospitalist; ATTEND Hospitalist
PROC: XW033E5 Introduction of Remdesivir Anti-infective into Peripheral Vein, Percutaneous Approach, New Technology Group 5 (ICD-10-PCS; principal; 2021-06-15)
DX: U07.1 COVID-19 (principal); J96.01 Acute respiratory failure with hypoxia; J12.82 Pneumonia due to coronavirus disease 2019; E66.9 Obesity, unspecified; Z68.30 Body mass index [BMI] 30.0-30.9, adult; E11.65 Type 2 diabetes mellitus with hyperglycemia; Z79.4 Long term (current) use of insulin; E78.5 Hyperlipidemia, unspecified; R79.1 Abnormal coagulation profile; R79.89 Other specified abnormal findings of blood chemistry; R79.82 Elevated C-reactive protein (CRP); Z87.891 Personal history of nicotine dependence; Z79.899 Other long term (current) drug therapy; I10 Essential (primary) hypertension; M19.90 Unspecified osteoarthritis, unspecified site; G43.909 Migraine, unspecified, not intractable, without status migrainosus; K21.9 Gastro-esophageal reflux disease without esophagitis; Z90.710 Acquired absence of both cervix and uterus; E78.00 Pure hypercholesterolemia, unspecified
CPT/HCPCS: 36415; 71046; 71275; 80048; 80053; 82728; 82962; 83036; 83615; 83880; 84145; 84484; 85025; 85027; 85379; 86140; 93005; 93306; 94760; G0378; A9270-GY; J0456; J0696; J1100; J1650; J1815; J7030; J7050; J8540; Q9967; U0003

== ENCOUNTER 2021-07-11 17:55 | Inpatient (IN) | payer MEDICARE ==
[2021-07-11] MEDS ORDERED: LACTATED RINGERS 500 ML IV ONE (19:15)
--- NOTE | 2021-07-11 19:15 | Event Note ---
Date: 07/11/21 The patient was evaluated in the emergency department for symptoms described in the history of present illness. He/she was evaluated in the context of the global COVID-19 pandemic, which necessitated consideration that the patient might be at risk for infection with the virus that causes COVID-19. Institutional protocols and algorithms that pertain to the evaluation of patients at risk for COVID-19 are in a state of rapid change based on information released by regulatory bodies including the CDC and federal and state organizations. These policies and algorithms were followed during the patient's care in the emergency department. Please note that these policies, procedures and recommendations changed on a rapid basis. Medical screening examination: Patient is a 51-year-old female, with a history of hypertension, hypothyroidism, CHF, EF of 25 to 30%, diagnosed with Covid last month, had CT angiogram chest which was negative for PE, presenting to the ER today with complaints of 3 episodes of syncope. Patient denies physical pain. Blood pressure noted to be 85 systolic. The patient is not sure if she hit her head. The patient is somewhat confused. Patient to be placed in room 17, on a monitor technician. Obtain appropriate laboratory studies, EKG, x-ray of the chest, start 500 cc of lactated Ringer's, reassess. Vital Signs 07/11/21 18:34 Temperature 98.3 F Pulse Rate 94 H Respiratory 18 Rate Blood Pressure 84/55 O2 Sat by Pulse 97 Oximetry
[2021-07-11] MEDS ORDERED: LACTATED RINGERS 1,000 ML IV ONE ×2 (19:28→20:07)
--- NOTE | 2021-07-11 19:38 | Emergency Department Report ---
ED Syncope HPI - General Chief Complaint: Syncope Stated Complaint: PASSED OUT Time Seen by Provider: 07/11/21 19:27 - History of Present Illness Initial Comments: Patient presented with reported syncope times multiple episodes. She had supposedly passed out 4 times today. She had a recent diagnosis of coronavirus. She had been seen in an [facility] initiated. She was ambulatory to the bathroom when I tried to see her initially. She did not have chest pain. She did not have palpitations. She states that she did not have any type of shaking activity. There was no known seizure activity, but these events were not necessarily witnessed. She has never had a seizure before. She denies recent head trauma. She states that she just does not feel well. - Related Data Allergies/Adverse Reactions: Allergies No Known Allergies Allergy (Verified 06/14/21 19:54) Home Medications: Ambulatory Orders Simvastatin (Nf) [Zocor TAB] 20 mg PO QHS 08/17/15 Ferrous Sulfate [Feosol 325 MG tab] 325 mg PO BID #60 tablet 09/28/15 traMADoL [Ultram 50 MG tab] 50 mg PO Q6HR PRN #10 tablet 03/11/18 Insulin Lispro [HumaLOG VIAL] 10 unit SQ AC #30 day 06/16/18 Insulin Glargine [Lantus VIAL] 22 unit SUB-Q QHS #30 day 02/10/21 Syringe and Needle,Insulin,1Ml [Insulin Syringe/Needle 1 ML] 1 each MC PRN #60 disp.syrin 02/10/21 Gabapentin 300 mg PO TID #60 cap 06/20/21 Insulin Glargine [Lantus VIAL] 16 units SUB-Q QHS units 06/20/21 Levothyroxine [Synthroid] 150 mcg PO QAM #30 06/20/21 Lisinopril/Hydrochlorothiazide [Zestoretic 20-25 mg] 1 tab PO QDAY #15 tab 06/20/21 Magnesium Hydroxide [Milk of Magnesia] 30 ml PO Q4H PRN oral.liqd 06/20/21 dexAMETHasone [Decadron] 6 mg PO DAILY #6 tablet 06/20/21 metFORMIN [Glucophage] 500 mg PO BID #60 tablet 07/11/21 ED Review of Systems ROS: Stated complaint: PASSED OUT Other details as noted in HPI Comment: All other systems reviewed and negative Constitutional: denies: fever Eyes: denies: eye pain ENT: denies: throat pain Respiratory: denies: cough Cardiovascular: denies: chest pain Endocrine: denies: unexplained weight loss Gastrointestinal: denies: abdominal pain Genitourinary: denies: dysuria Musculoskeletal: denies: back pain Skin: denies: rash Neurological: weakness. denies: headache Hematological/Lymphatic: denies: easy bruising ED Past Medical Hx - Past Medical History Previous Medical History?: Yes Hx Hypertension: Yes (x 2 years) Hx Diabetes: Yes (x 3 years) Hx GERD: Yes (past hx) Hx Renal Disease: No Hx Sickle Cell Disease: Yes (trait only) Hx Arthritis: Yes Hx Headaches / Migraines: Yes Hx Seizures: No Hx Asthma: No Additional medical history: THYROIDANEMIAGOITER - Surgical History Past Surgical History?: Yes Additional Surgical History: X 2. hysterectomy - Family History Family history: hypertension - Social History Smoking Status: Never Smoker Substance Use Type: None - Medications Home Medications: Home Medications Medication Instructions Recorded Confirmed Last Taken Type Simvastatin (Nf) [Zocor TAB] 20 mg PO QHS 08/17/15 06/15/21 09/27/15 History Ferrous Sulfate [Feosol 325 MG tab] 325 mg PO BID #60 tablet 09/28/15 06/15/21 01/09/16 Rx traMADoL [Ultram 50 MG tab] 50 mg PO Q6HR PRN #10 tablet 03/11/18 06/15/21 Unknown Rx Insulin Lispro [HumaLOG VIAL] 10 unit SQ AC #30 day 06/16/18 06/15/21 Unknown Rx Insulin Glargine [Lantus VIAL] 22 unit SUB-Q QHS #30 day 02/10/21 06/15/21 Unknown Rx Syringe and Needle,Insulin,1Ml 1 each MC PRN #60 disp.syrin 02/10/21 06/15/21 Unknown Rx [Insulin Syringe/Needle 1 ML] Gabapentin 300 mg PO TID #60 cap 06/20/21 Unknown Rx Insulin Glargine [Lantus VIAL] 16 units SUB-Q QHS units 06/20/21 Unknown Rx Levothyroxine [Synthroid] 150 mcg PO QAM #30 06/20/21 Unknown Rx Lisinopril/Hydrochlorothiazide 1 tab PO QDAY #15 tab 06/20/21 Unknown Rx [Zestoretic 20-25 mg] Magnesium Hydroxide [Milk of 30 ml PO Q4H PRN oral.liqd 06/20/21 Unknown Rx Magnesia] dexAMETHasone [Decadron] 6 mg PO DAILY #6 tablet 06/20/21 Unknown Rx metFORMIN [Glucophage] 500 mg PO BID #60 tablet 07/11/21 Unknown Rx ED Physical Exam - General Limitations: No Limitations, Other ( Pulse ox was noted to normal. She is not hypoxic.) General appearance: alert, in no apparent distress - Head Head exam: Present: atraumatic, normocephalic, normal inspection - Eye Eye exam: Present: normal appearance, EOMI. Absent: scleral icterus - ENT ENT exam: Present: normal exam, mucous membranes dry - Neck Neck exam: Present: normal inspection. Absent: tenderness, meningismus - Respiratory Respiratory exam: Present: normal lung sounds bilaterally. Absent: respiratory distress - Cardiovascular Cardiovascular Exam: Present: regular rate, normal rhythm - GI/Abdominal GI/Abdominal exam: Present: soft. Absent: tenderness, pulsatile mass - Extremities Exam Extremities exam: Present: normal capillary refill. Absent: pedal edema - Back Exam Back exam: Absent: CVA tenderness (R), CVA tenderness (L) - Neurological Exam Neurological exam: Present: alert, oriented X3, normal gait, reflexes normal - Psychiatric Psychiatric exam: Present: normal affect, normal mood - Skin Skin exam: Present: warm, dry ED Course Vital Signs 07/11/21 07/11/21 07/11/21 18:34 19:44 19:45 Temperature 98.3 F Pulse Rate 94 H 90 Respiratory 18 15 Rate Blood Pressure 84/55 140/96 O2 Sat by Pulse 97 98 100 Oximetry 07/11/21 07/11/21 07/11/21 20:01 20:15 20:31 Temperature Pulse Rate 94 H 90 89 Respiratory 26 H 14 12 Rate Blood Pressure 156/94 153/93 147/90 O2 Sat by Pulse 97 98 94 Oximetry 07/11/21 07/11/21 07/11/21 20:45 21:00 21:15 Temperature Pulse Rate 88 89 90 Respiratory 12 13 12 Rate Blood Pressure 146/93 146/93 146/91 O2 Sat by Pulse 95 96 Oximetry - Reevaluation(s) Reevaluation #1: 07/11/21 19:38 MSE have been started. IV and labs are pending. IV fluids have been ordered. ED Medical Decision Making - Lab Data Result diagrams: 07/11/21 19:21 07/11/21 19:21 - Medical Decision Making Patient presented with syncope. She was found to be hyperglycemic. She was dehydrated. She had transient hypotension. This all responded to IV fluids and hydration. Patient did not have evidence of STEMI or NSTEMI. There is no evidence of dysrhythmia. She did not have DKA or any other metabolic derangement that would require admission. She was feeling better with medications. She can be treated symptomatically for her hyperglycemia and dehydration. She does not require admission. We have referred her for outpatient evaluation and follow-up. Critical Care Time: No Critical care attestation.: If time is entered above; I have spent that time in minutes in the direct care of this critically ill patient, excluding procedure time. ED Disposition Clinical Impression: Dehydration, Transient hypotension Syncope Qualifiers: Syncope type: unspecified Qualified Code(s): R55 - Syncope and collapse Uncontrolled diabetes mellitus Qualifiers: Diabetes mellitus type: other specified (including CORRY) Glycemic state: with hyperglycemia Qualified Code(s): E13.65 - Other specified diabetes mellitus with hyperglycemia Disposition: 01 HOME / SELF CARE / HOMELESS Is pt being admited?: No Does the pt Need Aspirin: No Condition: Stable Instructions: Complementary and Alternative Medical Therapies for Diabetes, Diabetes Mellitus and Sick Day Management, Hyperglycemia, [id number], Syncope, [id number], Dehydration, Adult, Syncope (ED), Diabetes Mellitus Type 2 in Adults (ED) Additional Instructions: Drink any water. Return for problems. Manage her blood sugar. Avoid carbohydrates. Follow-up with your regular doctor for recheck and further ma nagement. Prescriptions: metFORMIN [Glucophage] 500 mg PO BID #60 tablet Referrals: PRIMARY CAREMD [Referring] - 3-5 Days JEROME SMITH MD [Staff Physician] - 3-5 Days
[2021-07-11 19:39] LABS: Basophils # (Auto) 0.1 K/mm3 (0.0-0.1); Basophils % (Auto) 1.2 % (0.0-1.8); Eosinophils # (Auto) 0.1 K/mm3 (0.0-0.4); Eosinophils % (Auto) 1.2 % (0.0-4.3); Hematocrit 42.5 % (30.3-42.9); Lymphocytes # (Auto) 0.8 K/mm3 (1.2-5.4); Lymphocytes % (Auto) 12.1 % (13.4-35.0); Mean Corpuscular HGB Conc 33 % (30-34); Mean Corpuscular Volume 91 fl (79-97); Monocytes # (Auto) 0.4 K/mm3 (0.0-0.8); Monocytes % (Auto) 6.8 % (0.0-7.3); Platelet Count 184 K/mm3 (140-440); Red Blood Count 4.67 M/mm3 (3.65-5.03); Red Cell Distribution Width 15.3 % (13.2-15.2)
[2021-07-11 19:54] LABS: Bilirubin,Urine NEG (Negative); Blood,Urine NEG (Negative); Color,Urine Straw (Yellow); Protein,Urine <15 mg/dL mg/dL (Negative); Urobilinogen,Urine < 2.0 mg/dL (<2.0)
[2021-07-11 19:59] LABS: Alanine Aminotransferase 16 units/L (7-56); BUN/Creatinine Ratio 15; Blood Urea Nitrogen 17 mg/dL (7-17); Calcium 10.4 mg/dL (8.4-10.2); Hemolysis Index 8
[2021-07-11] MEDS ORDERED: INSULIN REGULAR, HUMAN 100 UNITS/1 ML IV ONE ×2 (20:07→22:32)
--- NOTE | 2021-07-11 20:27 | XRay Report ---
CHEST 1 VIEW 07/11/2021 7:17 PM INDICATION / CLINICAL INFORMATION: syncope chf. COMPARISON: 06/14/2021 FINDINGS: SUPPORT DEVICES: None. HEART / MEDIASTINUM: No significant abnormality. LUNGS / PLEURA: No significant pulmonary or pleural abnormality. No pneumothorax. ADDITIONAL FINDINGS: No significant additional findings. IMPRESSION: 1. No acute findings. Signer Name: Sven Melo DO Signed: 07/11/2021 8:22 PM Workstation Name: [id number]
[2021-07-12] MEDS ORDERED: INSULIN REGULAR, HUMAN 100 UNITS/1 ML IV ONE ×3 (03:14→09:09)
[2021-07-12] MEDS ORDERED: LACTATED RINGERS 1,000 ML IV SCH (03:15)
--- NOTE | 2021-07-12 07:56 | Emergency Department Report ---
Blank Doc - Documentation Documentation: I was asked to reassess patient by nurse due to concern of anion gap and sudheer nued weakness. I reassessed patient at the bedside. Patient states for the past week she has been lightheaded, weak, and having syncopal episodes with ambulation. She states she is been compliant with her insulin and drink plenty of fluids but has been unable to ambulate or get out of bed for several days. ED assessment reviewed. Patient was treated with hyperglycemia with multiple doses of insulin and IV fluids. Patient was prepped for discharge given her sugar decreased to 300s. No signs of UTI. Mild hyperkalemia, anion gap with normal bicarb noted. Elevated TSH noted suggesting hypothyroidism without signs of myxedema coma Patient has received a total of 30 units of IV insulin. I attempted to walk her and she is able to ambulate slowly with support but appears unsteady and still complains of feeling lightheaded and weak. Ordered repeat BMP and ABG. Repeat labs reviewed. Patient no longer has an anion gap. No signs of acidosis. ABG shows a normal pH with mild increase in CO2 and mild hypoxia (recent covid last month with normal cxr today). Unfortunately patient still appears very unsteady and weak despite aggressive hydration and insulin therapy in the ED. Will discuss case with hospitalist for admission. pt to be admitted to Dr Bello
[2021-07-12 08:11] LABS: BUN/Creatinine Ratio 16; Blood Urea Nitrogen 14 mg/dL (7-17); Calcium 9.5 mg/dL (8.4-10.2); Hemolysis Index 4
--- NOTE | 2021-07-12 10:06 | Electrocardiograph Report ---
[facility] Test Date: 2021-07-11 Test Time: 19:40:33 Pat Name: CAITY SALMERON Department: Room: Gender: F Mobility Manager: : 1970 Requested By: KEERTHI AGUIRRE Order Number: [id number] Reading MD: Javier Velasquez Measurements Intervals [place] Rate: 91 P: 80 NV: 155 QRS: 25 QRSD: 80 T: 69 QT: 381 QTc: 470 Interpretive Statements Sinus rhythm nonspecific st-t Compared to ECG 06/14/2021 20:14:20 T-wave abnormality no longer present Electronically Signed On 07-12-2021 10:05:52 EDT by Javier Velasquez
--- NOTE | 2021-07-12 11:38 | History and Physical Report ---
History of Present Illness Date of examination: 07/12/21 Date of admission: 07/12/21 09:05 Chief complaint: Hyperglycemia, syncopal episode History of present illness: 51-year-old female patient with significant past medical history of hypertension hypothyroidism congestive heart failure ejection fraction 25 to 30% positive Covid last month at which time patient had negative PE on CTA chest presented to the emergency room with uncontrolled blood sugars and dizziness and multiple syncopal episodes per ER note Initially patient noted to be hypotensive with blood pressures of 85 systolic. Initial work-up revealed severe hyperglycemia however not in DKA Patient received multiple doses of IV regular insulin of 10 units with mild improvement patient is not in acidosis, no anion gap Past History Past Medical History: anemia, diabetes, heart failure, hypertension, hyperlipidemia Past Surgical History: hysterectomy Social history: denies: smoking, alcohol abuse, prescription drug abuse Family history: diabetes, hypertension Medications and Allergies Allergies Allergy/AdvReac Type Severity Reaction Status Date / Time No Known Allergies Allergy Verified 06/14/21 19:54 Home Medications Medication Instructions Recorded Confirmed Last Taken Type Simvastatin (Nf) [Zocor TAB] 20 mg PO QHS 08/17/15 06/15/21 09/27/15 History Ferrous Sulfate [Feosol 325 MG tab] 325 mg PO BID #60 tablet 09/28/15 06/15/21 01/09/16 Rx traMADoL [Ultram 50 MG tab] 50 mg PO Q6HR PRN #10 tablet 03/11/18 06/15/21 Unknown Rx Insulin Lispro [HumaLOG VIAL] 10 unit SQ AC #30 day 06/16/18 06/15/21 Unknown Rx Insulin Glargine [Lantus VIAL] 22 unit SUB-Q QHS #30 day 02/10/21 06/15/21 Unknown Rx Syringe and Needle,Insulin,1Ml 1 each MC PRN #60 disp.syrin 02/10/21 06/15/21 Unknown Rx [Insulin Syringe/Needle 1 ML] Gabapentin 300 mg PO TID #60 cap 06/20/21 Unknown Rx Insulin Glargine [Lantus VIAL] 16 units SUB-Q QHS units 06/20/21 Unknown Rx Levothyroxine [Synthroid] 150 mcg PO QAM #30 06/20/21 Unknown Rx Lisinopril/Hydrochlorothiazide 1 tab PO QDAY #15 tab 06/20/21 Unknown Rx [Zestoretic 20-25 mg] Magnesium Hydroxide [Milk of 30 ml PO Q4H PRN oral.liqd 06/20/21 Unknown Rx Magnesia] dexAMETHasone [Decadron] 6 mg PO DAILY #6 tablet 06/20/21 Unknown Rx metFORMIN [Glucophage] 500 mg PO BID #60 tablet 07/11/21 Unknown Rx Review of Systems Constitutional: fatigue, weakness, no weight loss, no weight gain, no anorexia Ears, nose, mouth and throat: no nasal congestion, no nasal discharge Cardiovascular: syncope, lightheadedness, no chest pain, no orthopnea Respiratory: no cough, no hemoptysis Gastrointestinal: no nausea, no vomiting, no diarrhea Genitourinary Female: no dysuria, no urinary frequency Musculoskeletal: no myalgias, no arthritis Integumentary: no rash, no lesions Neurological: syncope Psychiatric: no anxiety, no depression Endocrine: no cold intolerance, no heat intolerance Hematologic/Lymphatic: no easy bruising, no easy bleeding Allergic/Immunologic: no urticaria, no allergic rhinitis Exam - Constitutional Vitals: Temp Pulse Resp BP Pulse Ox 98.3 F 88 15 126/70 96 07/11/21 18:34 07/12/21 10:31 07/12/21 10:31 07/12/21 10:31 07/12/21 10:31 General appearance: Present: no acute distress, well-nourished - EENT Eyes: Present: PERRL, EOM intact - Neck Neck: Present: supple, normal ROM - Respiratory Respiratory effort: normal Respiratory: bilateral: diminished, negative: rales, rhonchi, wheezing - Cardiovascular Rhythm: regular Heart Sounds: Present: S1 & S2 - Extremities Extremities: no ischemia, No edema - Abdominal General gastrointestinal: Present: soft, non-tender, non-distended, normal bowel sounds - Integumentary Integumentary: Present: clear, warm - Musculoskeletal Musculoskeletal: strength equal bilaterally, generalized weakness - Psychiatric Psychiatric: appropriate mood/affect, cooperative - Neurologic Neurologic: CNII-XII intact, moves all extremities HEART Score - HEART Score Troponin: Troponin T < 0.010 ng/mL (0.00-0.029) 07/11/21 19:21 Results - Labs CBC & Chem 7: 07/11/21 19:21 07/12/21 07:13 Labs: Abnormal lab results 07/11/21 07/11/21 07/11/21 Range/Units 19:21 19:21 19:21 RDW 15.3 H (13.2-15.2) % Lymph % (Auto) 12.1 L (13.4-35.0) % Lymph # (Auto) 0.8 L (1.2-5.4) K/mm3 Seg Neutrophils % 78.7 H (40.0-70.0) % POC ABG pCO2 (32.0-48.0) mmHg POC ABG pO2 (83-108) mmHg ABG Oxyhemoglobin (94-98) ABG Chloride (98-107) mmol/L ABG Glucose (65-95) mg/dL Sodium 132 L (137-145) mmol/L Potassium 5.6 H (3.6-5.0) mmol/L Chloride 87.9 L (98-107) mmol/L Carbon Dioxide (22-30) mmol/L Glucose 730 H* (65-100) mg/dL POC Glucose (70-105) mg/dL Calcium 10.4 H (8.4-10.2) mg/dL TSH 46.840 H (0.270-4.200) mlU/mL Arterial Blood Glucose (65-95) mg/dL 07/11/21 07/12/21 07/12/21 Range/Units 22:29 02:31 04:40 RDW (13.2-15.2) % Lymph % (Auto) (13.4-35.0) % Lymph # (Auto) (1.2-5.4) K/mm3 Seg Neutrophils % (40.0-70.0) % POC ABG pCO2 (32.0-48.0) mmHg POC ABG pO2 (83-108) mmHg ABG Oxyhemoglobin (94-98) ABG Chloride (98-107) mmol/L ABG Glucose (65-95) mg/dL Sodium (137-145) mmol/L Potassium (3.6-5.0) mmol/L Chloride (98-107) mmol/L Carbon Dioxide (22-30) mmol/L Glucose (65-100) mg/dL POC Glucose 593 H 420 H 366 H (70-105) mg/dL Calcium (8.4-10.2) mg/dL TSH (0.270-4.200) mlU/mL Arterial Blood Glucose (65-95) mg/dL 07/12/21 07/12/21 07/12/21 Range/Units 05:41 07:13 08:50 RDW (13.2-15.2) % Lymph % (Auto) (13.4-35.0) % Lymph # (Auto) (1.2-5.4) K/mm3 Seg Neutrophils % (40.0-70.0) % POC ABG pCO2 53.0 H (32.0-48.0) mmHg POC ABG pO2 63.8 L (83-108) mmHg ABG Oxyhemoglobin 92.1 L (94-98) ABG Chloride 97.0 L (98-107) mmol/L ABG Glucose 434 H (65-95) mg/dL Sodium (137-145) mmol/L Potassium (3.6-5.0) mmol/L Chloride 95.4 L (98-107) mmol/L Carbon Dioxide 32 H D (22-30) mmol/L Glucose 395 H (65-100) mg/dL POC Glucose 338 H (70-105) mg/dL Calcium (8.4-10.2) mg/dL TSH (0.270-4.200) mlU/mL Arterial Blood Glucose 434 H (65-95) mg/dL 07/12/21 Range/Units 10:47 RDW (13.2-15.2) % Lymph % (Auto) (13.4-35.0) % Lymph # (Auto) (1.2-5.4) K/mm3 Seg Neutrophils % (40.0-70.0) % POC ABG pCO2 (32.0-48.0) mmHg POC ABG pO2 (83-108) mmHg ABG Oxyhemoglobin (94-98) ABG Chloride (98-107) mmol/L ABG Glucose (65-95) mg/dL Sodium (137-145) mmol/L Potassium (3.6-5.0) mmol/L Chloride (98-107) mmol/L Carbon Dioxide (22-30) mmol/L Glucose (65-100) mg/dL POC Glucose 455 H (70-105) mg/dL Calcium (8.4-10.2) mg/dL TSH (0.270-4.200) mlU/mL Arterial Blood Glucose (65-95) mg/dL Assessment and Plan --Recurrent syncope; Fall precautions, CT head without contrast Orthostats, supportive care PT OT evaluation prior to discharge CT head in the morning to rule out any acute intracranial abnormalities --hyperglycemia/uncontrolled diabetes mellitus Accu-Cheks, sliding scale coverage, ADA Diet Long-acting insulin Lantus, A1c 05/2021 is 12.4 Patient's sugars are 400s this morning, will give 1 dose of Novolin 70/30 15 units x 1 dose Diabetic education nutrition education Home health diabetic nurse upon discharge --Diabetic neuropathy: Continue gabapentin --h/o Hypothyroidism; Resume home medications Synthroid --hypertension Moderate control, continue current antihypertensives As needed medications --DVT prophylaxis Lovenox subcu We will closely monitor the patient and adjust the management as needed plan of care reviewed with the patient and her nurse PT OT evaluation Home health at discharge Home health nurse for disease monitoring Plan of care reviewed with the patient and her nurse
[2021-07-12] MEDS ORDERED: INSULIN NPH/REGULAR 70/30 INJ SUB-Q NR (12:00)
[2021-07-12] MEDS: GABAPENTIN 300 MG CAP PO SCH ×2 (16:26→22:33)
[2021-07-12] MEDS: INSULIN LISPRO 100 UNIT/ML SUB-Q SCH ×3 (16:26→22:34)
[2021-07-12] MEDS: traMADol 50 MG TAB PO PRN (16:47)
[2021-07-12] MEDS ORDERED: NON-FORMULARY EACH (Simvastatin (Nf) 20 MG Tablet) PO SCH (22:00)
[2021-07-12] MEDS: PRAVASTATIN 40 MG TAB PO SCH (22:33)
[2021-07-12] MEDS: FERROUS SULFATE 325 MG TAB PO SCH (22:33)
[2021-07-12] MEDS: INSULIN GLARGINE 100 UNITS/ML SUB-Q SCH (22:34)
[2021-07-13] MEDS: LEVOTHYROXINE 150 MCG TAB PO SCH (05:07)
[2021-07-13 06:53] LABS: Alanine Aminotransferase 12 units/L (7-56); Albumin 3.1 g/dL (3.9-5); BUN/Creatinine Ratio 15; Blood Urea Nitrogen 12 mg/dL (7-17); Calcium 9.2 mg/dL (8.4-10.2); Hemolysis Index 4
--- NOTE | 2021-07-13 08:43 | Cat Scan Report ---
CT BRAIN: 07/13/2021 INDICATION / CLINICAL INFORMATION: Recurrent syncopal episodes. COMPARISON: None available. FINDINGS: BRAIN/INTRACRANIAL STRUCTURES: Unenhanced CT images of the brain demonstrate no evidence of acute int racranial abnormality. Ventricles and sulci are slightly prominent in size, consistent with mild diffuse cerebral atrophy fo r age. There is no evidence of acute large vessel territory ischemic injury, hemorrhage, or mass. There are no abnormal extra-axial fluid collections. EXTRACRANIAL STRUCTURES: Unremarkable. IMPRESSION: No acute abnormality. All CT scans at this location are performed using dose reduction to ALARA by means of automated expos ure control. Signer Name: Jarrod Patel MD Signed: 07/13/2021 8:38 AM Workstation Name: [id number]
[2021-07-13] MEDS: INSULIN LISPRO 100 UNIT/ML SUB-Q SCH ×7 (09:12→21:57)
[2021-07-13] MEDS: FERROUS SULFATE 325 MG TAB PO SCH ×2 (09:13→21:56)
[2021-07-13] MEDS: GABAPENTIN 300 MG CAP PO SCH ×3 (09:13→22:02)
[2021-07-13] MEDS ORDERED: LEVOTHYROXINE 100 MCG TAB PO SCH (10:00)
--- NOTE | 2021-07-13 10:33 | Progress Note ---
Assessment and Plan Assessment and plan: --Recurrent syncope; Fall precautions, CT head without contrast Orthostats, supportive care PT OT evaluation prior to discharge CT head in the morning to rule out any acute intracranial abnormalities --Severe orthostatic hypotension; Orthostatic hypotension; Supine position; 100/70, pulse 78/min After 2 to 3 minutes of sitting position; blood pressure ;74/45, pulse 83 After 2 to 3 minutes of standing position; BP 69/44, pulse 88/min Fall precautions, IV fluids Low-dose midodrine Follow PT OT --hyperglycemia/uncontrolled diabetes mellitus Accu-Cheks, sliding scale coverage, ADA Diet Long-acting insulin Lantus, A1c 05/2021 is 12.4 Patient's sugars are 400s this morning, Diabetic education nutrition education Home health diabetic nurse upon discharge --Diabetic neuropathy: Continue gabapentin --h/o Hypothyroidism; Resume home medications Synthroid --hypertension Patient's blood pressure in the lower range --DVT prophylaxis Lovenox subcu We will closely monitor the patient and adjust the management as needed plan of care reviewed with the patient and her nurse PT OT evaluation Home health at discharge Home health nurse for disease monitoring Plan of care reviewed with the patient and her nurse 07/13/2021; Patient admitted with recurrent syncopal episode Has severe orthostatic hypotension Placed on fall precautions, IV fluids Low-dose midodrine Closely monitor PT OT evaluation and therapy when patient is medically stable History Interval history: I seen and examined the patient at the bedside ,patient's chart and medications reviewed Patient complains of dizziness and generalized weakness Nurse recorded orthostatic blood pressures Patient has severe orthostatic hypotension On fall precautions Hospitalist Physical - Constitutional Vitals: Temp Pulse Resp BP Pulse Ox 98.3 F 79 18 89/54 97 07/13/21 08:00 07/13/21 08:00 07/13/21 08:00 07/13/21 08:00 07/13/21 03:37 General appearance: Present: mild distress, well-nourished - EENT Eyes: Present: PERRL, EOM intact - Neck Neck: Present: supple, normal ROM - Respiratory Respiratory effort: normal Respiratory: bilateral: diminished, negative: rales, rhonchi, wheezing - Cardiovascular Rhythm: regular Heart Sounds: Present: S1 & S2 - Extremities Extremities: no ischemia, No edema - Abdominal General gastrointestinal: soft, non-tender, non-distended, normal bowel sounds - Integumentary Integumentary: Present: clear, warm - Psychiatric Psychiatric: appropriate mood/affect, cooperative - Neurologic Neurologic: moves all extremities HEART Score - HEART Score Troponin: Troponin T < 0.010 ng/mL (0.00-0.029) 07/11/21 19: Results - Labs CBC & Chem 7: 07/11/21 19:21 07/13/21 04:54 Labs: Laboratory Last Values WBC 6.3 K/mm3 (4.5-11.0) 07/11/21 19: RBC 4.67 M/mm3 (3.65-5.03) 07/11/21 19: Hgb 14.0 gm/dl (10.1-14.3) 07/11/21 19: Hct 42.5 % (30.3-42.9) 07/11/21 19: MCV 91 fl (79-97) 07/11/21 19: MCH 30 pg (28-32) 07/11/21 19: MCHC 33 % (30-34) 07/11/21 19: RDW 15.3 % (13.2-15.2) H 07/11/21 19: Plt Count 184 K/mm3 (140-440) 07/11/21 19: Lymph % (Auto) 12.1 % (13.4-35.0) L 07/11/21 19: [place] % (Auto) 6.8 % (0.0-7.3) 07/11/21 19: Eos % (Auto) 1.2 % (0.0-4.3) 07/11/21 19: Baso % (Auto) 1.2 % (0.0-1.8) 07/11/21 19: Lymph # (Auto) 0.8 K/mm3 (1.2-5.4) L 07/11/21 19: [place] # (Auto) 0.4 K/mm3 (0.0-0.8) 07/11/21 19: Eos # (Auto) 0.1 K/mm3 (0.0-0.4) 07/11/21 19: Baso # (Auto) 0.1 K/mm3 (0.0-0.1) 07/11/21 19:21 Seg Neutrophils % 78.7 % (40.0-70.0) H 07/11/21 19:21 Seg Neutrophils # 4.9 K/mm3 (1.8-7.7) 07/11/21 19:21 ABG pH 7.420 (7.320-7.450) 07/12/21 08:50 POC ABG pCO2 53.0 mmHg (32.0-48.0) H 07/12/21 08:50 POC ABG pO2 63.8 mmHg (83-108) L 07/12/21 08:50 POC ABG HCO3 33.6 07/12/21 08:50 ABG O2 Saturation 93.3 (0-100) 07/12/21 08:50 POC ABG Base Excess 7.5 07/12/21 08:50 ABG Hemoglobin 14.3 (12.0-17.5) 07/12/21 08:50 ABG Oxyhemoglobin 92.1 (94-98) L 07/12/21 08:50 ABG Methemoglobin 0 (0.0-1.5) 07/12/21 08:50 ABG Sodium 138.1 mmol/L (136.0-145.0) 07/12/21 08:50 ABG Potassium 4.0 mmol/L (3.40-4.50) 07/12/21 08:50 ABG Chloride 97.0 mmol/L (98-107) L 07/12/21 08:50 ABG Glucose 434 mg/dL (65-95) H 07/12/21 08:50 Carboxyhemoglobin 1.3 (0.5-1.5) 07/12/21 08:50 FiO2 % 21.0 07/12/21 08:50 Sodium 137 mmol/L (137-145) 07/13/21 04:54 Potassium 3.7 mmol/L (3.6-5.0) 07/13/21 04:54 Chloride 95.8 mmol/L (98-107) L 07/13/21 04:54 Carbon Dioxide 32 mmol/L (22-30) H 07/13/21 04:54 Anion Gap 13 mmol/L 07/13/21 04:54 BUN 12 mg/dL (7-17) 07/13/21 04:54 Creatinine 0.8 mg/dL (0.6-1.2) 07/13/21 04:54 Estimated GFR > 60 ml/min 07/13/21 04:54 BUN/Creatinine Ratio 15 % 07/13/21 04:54 Glucose 194 mg/dL (65-100) H 07/13/21 04:54 POC Glucose 150 mg/dL (70-105) H 07/13/21 08:34 Calcium 9.2 mg/dL (8.4-10.2) 07/13/21 04:54 Magnesium 2.00 mg/dL (1.7-2.3) 07/13/21 04:54 Total Bilirubin 0.30 mg/dL (0.1-1.2) 07/13/21 04:54 AST 15 units/L (5-40) 07/13/21 04:54 ALT 12 units/L (7-56) 07/13/21 04:54 Alkaline Phosphatase 77 units/L (35-129) 07/13/21 04:54 Total Creatine Kinase 51 units/L (30-135) 07/11/21 19:21 Troponin T < 0.010 ng/mL (0.00-0.029) 07/11/21 19:21 Total Protein 6.2 g/dL (6.3-8.2) L D 07/13/21 04:54 Albumin 3.1 g/dL (3.9-5) L 07/13/21 04:54 Albumin/Globulin Ratio 1.0 % 07/13/21 04:54 TSH 46.840 mlU/mL (0.270-4.200) H 07/11/21 19:21 Arterial Blood Glucose 434 mg/dL (65-95) H 07/12/21 08:50 Arterial Blood Ionized Calcium 4.8 mg/dL (4.6-5.3) 07/12/21 08:50 Urine Color Straw (Yellow) 07/11/21 Unknown Urine Turbidity Clear (Clear) 07/11/21 Unknown Urine pH 6.0 (5.0-7.0) 07/11/21 Unknown Ur Specific [place] 1.020 (1.003-1.030) 07/11/21 Unknown Urine Protein <15 mg/dl mg/dL (Negative) 07/11/21 Unknown Urine Glucose (UA) >=500 mg/dL (Negative) 07/11/21 Unknown Urine Ketones 20 mg/dL (Negative) 07/11/21 Unknown Urine Blood Neg (Negative) 07/11/21 Unknown Urine Nitrite Neg (Negative) 07/11/21 Unknown Urine Bilirubin Neg (Negative) 07/11/21 Unknown Urine Urobilinogen < 2.0 mg/dL (<2.0) 07/11/21 Unknown Ur Leukocyte Esterase Neg (Negative) 07/11/21 Unknown Urine WBC (Auto) 6.0 /HPF (0.0-6.0) 07/11/21 Unknown Urine RBC (Auto) 3.0 /HPF (0.0-6.0) 07/11/21 Unknown U Epithel Cells (Auto) 1.0 /HPF (0-13.0) 07/11/21 Unknown Plasma/Serum Alcohol < 0.01 % (0-0.07) 07/11/21 19:21 Streeter/IV: Voiding Method Toilet Active Medications - Current Medications Current Medications: Generic Name Dose Route Start Last Admin Trade Name Jona PRN Reason Stop Dose Admin Ferrous Sulfate 325 mg 07/12/21 22:00 07/13/21 09:13 Ferrous Sulfate 325 Mg Tab PO 325 mg BID AROLDO Administration Gabapentin 300 mg 07/12/21 14:00 07/13/21 09:13 Gabapentin 300 Mg Cap PO 300 mg TID AROLDO Administration Insulin Glargine 16 units 07/12/21 22:00 07/12/21 22:34 Insulin Glargine 100 Units/Ml SUB-Q 16 units QHS AROLDO Administration Insulin Human Lispro 0 unit 07/12/21 16:30 07/13/21 09:12 Insulin Lispro 100 Unit/Ml SUB-Q 3 unit ACHS AROLDO Administration Protocol Insulin Human Lispro 10 unit 07/12/21 16:30 07/13/21 09:12 Insulin Lispro 100 Unit/Ml SUB-Q 10 unit AC AROLDO Administration Levothyroxine Sodium 150 mcg 07/13/21 06:00 07/13/21 05:07 Levothyroxine 150 Mcg Tab PO 150 mcg DAILY@0600 AROLDO Administration Pravastatin Sodium 40 mg 07/12/21 22:00 07/12/21 22:33 Pravastatin 40 Mg Tab PO 40 mg QHS AROLDO Administration Tramadol HCl 50 mg 07/12/21 12:00 07/12/21 16:47 Tramadol 50 Mg Tab PO 50 mg Q6HR PRN Administration PAIN
[2021-07-13] MEDS ORDERED: SODIUM CHLORIDE 0.9% 500 ML IVPB IV SCH (13:00)
[2021-07-13] MEDS: MIDODRINE 2.5 MG TAB PO SCH ×2 (13:13→21:56)
[2021-07-13] MEDS: PRAVASTATIN 40 MG TAB PO SCH (21:56)
[2021-07-13] MEDS: INSULIN GLARGINE 100 UNITS/ML SUB-Q SCH (21:56)
[2021-07-14] MEDS: traMADol 50 MG TAB PO PRN (01:20)
[2021-07-14] MEDS: LEVOTHYROXINE 150 MCG TAB PO SCH (05:54)
[2021-07-14] MEDS: INSULIN LISPRO 100 UNIT/ML SUB-Q SCH ×6 (09:02→17:08)
[2021-07-14] MEDS: GABAPENTIN 300 MG CAP PO SCH ×3 (09:03→23:10)
[2021-07-14] MEDS: FERROUS SULFATE 325 MG TAB PO SCH (09:03)
[2021-07-14] MEDS: MIDODRINE 2.5 MG TAB PO SCH ×3 (09:07→23:10)
[2021-07-14] MEDS ORDERED: SODIUM CHLORIDE 0.9% 1000 ML 1,000 ML IV SCH (12:30)
--- NOTE | 2021-07-14 13:59 | Progress Note ---
Assessment and Plan Assessment and plan: --Recurrent syncope; Fall precautions, CT head without contrast Patient has postural hypotension CT head without contrast negative for acute abnormality PT OT as tolerated --Severe postural hypotension; Orthostatic hypotension; Supine position; 100/70, pulse 78/min After 2 to 3 minutes of sitting position; blood pressure ;74/45, pulse 83. After 2 to 3 minutes of standing position; BP 69/44, pulse 88/min Fall precautions, IV fluids Low-dose midodrine Follow PT OT --Acute systolic congestive heart failure; EF 25 to 30%[ 05/2021] IV Lasix, lisinopril, Coreg input output monitoring, Patient blood pressures are in the lower range Cardiology consult if needed --hyperglycemia/uncontrolled diabetes mellitus Accu-Cheks, sliding scale coverage, ADA Diet Long-acting insulin Lantus, A1c 05/2021 is 12.4 Blood sugars reasonable level Diabetic education nutrition education Home health nurse upon discharge --Diabetic neuropathy: Continue gabapentin --Worsening hypothyroidism; Increase Synthroid dose to 200 mg daily Supportive care, probably due to noncompliance --hypertension Patient's blood pressure in the lower range Midodrine low-dose --DVT prophylaxis Lovenox subcu We will closely monitor the patient and adjust the management as needed plan of care reviewed with the patient and her nurse PT OT evaluation Home health at discharge Home health nurse for disease monitoring Plan of care reviewed with the patient and her nurse 07/13/2021; Patient has postural hypotension Fall precautions Low-dose midodrine 07/14/2021 Acute systolic congestive heart failure; Antifailure medications if blood pressures permit Synthroid dose increased to 200 mcg daily Fall precautions, consider cardiology evaluation if needed History Interval history: I have seen and examined the patient at the bedside this morning Patient's chart and medications reviewed Patient feels better, still has postural hypotension, generalized weakness Vital signs noted Hospitalist Physical - Constitutional Vitals: Temp Pulse Resp BP Pulse Ox 97.9 F 81 18 87/58 100 07/14/21 11:54 07/14/21 11:54 07/14/21 11:54 07/14/21 11:54 07/14/21 11:54 General appearance: Present: mild distress, well-nourished - EENT Eyes: Present: PERRL, EOM intact - Neck Neck: Present: supple, normal ROM - Respiratory Respiratory effort: normal Respiratory: bilateral: diminished, negative: rales, rhonchi, wheezing - Cardiovascular Rhythm: regular Heart Sounds: Present: S1 & S2 - Extremities Extremities: no ischemia, No edema - Abdominal General gastrointestinal: soft, non-tender, non-distended, normal bowel sounds - Integumentary Integumentary: Present: clear, warm - Psychiatric Psychiatric: appropriate mood/affect, cooperative - Neurologic Neurologic: CNII-XII intact, moves all extremities HEART Score - HEART Score Troponin: Troponin T < 0.010 ng/mL (0.00-0.029) 07/11/21 19:21 Results - Labs CBC & Chem 7: 07/11/21 19:21 07/13/21 04:54 Labs: Laboratory Last Values WBC 6.3 K/mm3 (4.5-11.0) 07/11/21 19: RBC 4.67 M/mm3 (3.65-5.03) 07/11/21 19: Hgb 14.0 gm/dl (10.1-14.3) 07/11/21 19: Hct 42.5 % (30.3-42.9) 07/11/21 19: MCV 91 fl (79-97) 07/11/21 19: MCH 30 pg (28-32) 07/11/21 19: MCHC 33 % (30-34) 07/11/21 19: RDW 15.3 % (13.2-15.2) H 07/11/21 19: Plt Count 184 K/mm3 (140-440) 07/11/21 19: Lymph % (Auto) 12.1 % (13.4-35.0) L 07/11/21 19: [place] % (Auto) 6.8 % (0.0-7.3) 07/11/21 19: Eos % (Auto) 1.2 % (0.0-4.3) 07/11/21 19: Baso % (Auto) 1.2 % (0.0-1.8) 07/11/21 19: Lymph # (Auto) 0.8 K/mm3 (1.2-5.4) L 07/11/21 19: [place] # (Auto) 0.4 K/mm3 (0.0-0.8) 07/11/21 19:21 Eos # (Auto) 0.1 K/mm3 (0.0-0.4) 07/11/21 19:21 Baso # (Auto) 0.1 K/mm3 (0.0-0.1) 07/11/21 19:21 Seg Neutrophils % 78.7 % (40.0-70.0) H 07/11/21 19: Seg Neutrophils # 4.9 K/mm3 (1.8-7.7) 07/11/21 19:21 ABG pH 7.420 (7.320-7.450) 07/12/21 08:50 POC ABG pCO2 53.0 mmHg (32.0-48.0) H 07/12/21 08:50 POC ABG pO2 63.8 mmHg (83-108) L 07/12/21 08:50 POC ABG HCO3 33.6 07/12/21 08:50 ABG O2 Saturation 93.3 (0-100) 07/12/21 08:50 POC ABG Base Excess 7.5 07/12/21 08:50 ABG Hemoglobin 14.3 (12.0-17.5) 07/12/21 08:50 ABG Oxyhemoglobin 92.1 (94-98) L 07/12/21 08:50 ABG Methemoglobin 0 (0.0-1.5) 07/12/21 08:50 ABG Sodium 138.1 mmol/L (136.0-145.0) 07/12/21 08:50 ABG Potassium 4.0 mmol/L (3.40-4.50) 07/12/21 08:50 ABG Chloride 97.0 mmol/L (98-107) L 07/12/21 08:50 ABG Glucose 434 mg/dL (65-95) H 07/12/21 08:50 Carboxyhemoglobin 1.3 (0.5-1.5) 07/12/21 08:50 FiO2 % 21.0 07/12/21 08:50 Sodium 137 mmol/L (137-145) 07/13/21 04:54 Potassium 3.7 mmol/L (3.6-5.0) 07/13/21 04:54 Chloride 95.8 mmol/L (98-107) L 07/13/21 04:54 Carbon Dioxide 32 mmol/L (22-30) H 07/13/21 04:54 Anion Gap 13 mmol/L 07/13/21 04:54 BUN 12 mg/dL (7-17) 07/13/21 04:54 Creatinine 0.8 mg/dL (0.6-1.2) 07/13/21 04:54 Estimated GFR > 60 ml/min 07/13/21 04:54 BUN/Creatinine Ratio 15 % 07/13/21 04:54 Glucose 194 mg/dL (65-100) H 07/13/21 04:54 POC Glucose 193 mg/dL (70-105) H 07/14/21 12:08 Calcium 9.2 mg/dL (8.4-10.2) 07/13/21 04:54 Magnesium 2.00 mg/dL (1.7-2.3) 07/13/21 04:54 Total Bilirubin 0.30 mg/dL (0.1-1.2) 07/13/21 04:54 AST 15 units/L (5-40) 07/13/21 04:54 ALT 12 units/L (7-56) 07/13/21 04:54 Alkaline Phosphatase 77 units/L (35-129) 07/13/21 04:54 Total Creatine Kinase 51 units/L (30-135) 07/11/21 19:21 Troponin T < 0.010 ng/mL (0.00-0.029) 07/11/21 19:21 Total Protein 6.2 g/dL (6.3-8.2) L D 07/13/21 04:54 Albumin 3.1 g/dL (3.9-5) L 07/13/21 04:54 Albumin/Globulin Ratio 1.0 % 07/13/21 04:54 TSH 46.840 mlU/mL (0.270-4.200) H 07/11/21 19:21 Arterial Blood Glucose 434 mg/dL (65-95) H 07/12/21 08:50 Arterial Blood Ionized Calcium 4.8 mg/dL (4.6-5.3) 07/12/21 08:50 Urine Color Straw (Yellow) 07/11/21 Unknown Urine Turbidity Clear (Clear) 07/11/21 Unknown Urine pH 6.0 (5.0-7.0) 07/11/21 Unknown Ur Specific [place] 1.020 (1.003-1.030) 07/11/21 Unknown Urine Protein <15 mg/dl mg/dL (Negative) 07/11/21 Unknown Urine Glucose (UA) >=500 mg/dL (Negative) 07/11/21 Unknown Urine Ketones 20 mg/dL (Negative) 07/11/21 Unknown Urine Blood Neg (Negative) 07/11/21 Unknown Urine Nitrite Neg (Negative) 07/11/21 Unknown Urine Bilirubin Neg (Negative) 07/11/21 Unknown Urine Urobilinogen < 2.0 mg/dL (<2.0) 07/11/21 Unknown Ur Leukocyte Esterase Neg (Negative) 07/11/21 Unknown Urine WBC (Auto) 6.0 /HPF (0.0-6.0) 07/11/21 Unknown Urine RBC (Auto) 3.0 /HPF (0.0-6.0) 07/11/21 Unknown U Epithel Cells (Auto) 1.0 /HPF (0-13.0) 07/11/21 Unknown Plasma/Serum Alcohol < 0.01 % (0-0.07) 07/11/21 19:21 Streeter/IV: Voiding Method Toilet Active Medications - Current Medications Current Medications: Generic Name Dose Route Start Last Admin Trade Name Freq PRN Reason Stop Dose Admin Ferrous Sulfate 325 mg 07/12/21 22:00 07/14/21 09:03 Ferrous Sulfate 325 Mg Tab PO 325 mg BID AROLDO Administration Gabapentin 300 mg 07/12/21 14:00 07/14/21 13:11 Gabapentin 300 Mg Cap PO Not Given TID [facility] Insulin Glargine 16 units 07/12/21 22:00 07/13/21 21:56 Insulin Glargine 100 Units/Ml SUB-Q 16 units QHS [facility] Administration Insulin Human Lispro 0 unit 07/12/21 16:30 07/14/21 12:15 Insulin Lispro 100 Unit/Ml SUB-Q 3 unit ACHS [facility] Administration Protocol Insulin Human Lispro 10 unit 07/12/21 16:30 07/14/21 12:16 Insulin Lispro 100 Unit/Ml SUB-Q 10 unit AC AROLDO Administration Levothyroxine Sodium 150 mcg 07/13/21 06:00 07/14/21 05:54 Levothyroxine 150 Mcg Tab PO 150 mcg DAILY@0600 AROLDO Administration Midodrine 5 mg 07/14/21 13:53 Midodrine 2.5 Mg Tab PO TID AROLDO Pravastatin Sodium 40 mg 07/12/21 22:00 07/13/21 21:56 Pravastatin 40 Mg Tab PO 40 mg QHS AROLDO Administration Tramadol HCl 50 mg 07/12/21 12:00 07/14/21 01:20 Tramadol 50 Mg Tab PO 50 mg Q6HR PRN Administration PAIN
[2021-07-14] MEDS: LEVOTHYROXINE 100 MCG TAB PO SCH (17:08)
[2021-07-14] MEDS ORDERED: LEVOTHYROXINE 50 MCG TAB PO ONE (18:00)
[2021-07-14] MEDS: carvediloL 3.125 MG TAB PO SCH (23:10)
[2021-07-14] MEDS: PRAVASTATIN 40 MG TAB PO SCH (23:10)
[2021-07-15] MEDS: INSULIN GLARGINE 100 UNITS/ML SUB-Q SCH ×2 (00:55→22:24)
[2021-07-15] MEDS: INSULIN LISPRO 100 UNIT/ML SUB-Q SCH ×8 (00:56→22:24)
[2021-07-15] MEDS: LEVOTHYROXINE 100 MCG TAB PO SCH (05:46)
[2021-07-15] MEDS: MIDODRINE 5 MG TAB PO SCH ×3 (10:44→17:43)
[2021-07-15] MEDS: GABAPENTIN 300 MG CAP PO SCH ×3 (10:44→22:23)
[2021-07-15] MEDS: carvediloL 3.125 MG TAB PO SCH ×2 (10:45→22:23)
[2021-07-15] MEDS: LISINOPRIL 5 MG TAB PO SCH (10:45)
[2021-07-15] MEDS: FUROSEMIDE 20 MG/2 ML INJ IV SCH (10:45)
[2021-07-15] MEDS: traMADol 50 MG TAB PO PRN (10:54)
--- NOTE | 2021-07-15 14:18 | Progress Note ---
Assessment and Plan Assessment and plan: --Recurrent syncope; Fall precautions, CT head without contrast Patient has postural hypotension CT head without contrast negative for acute abnormality PT OT as tolerated --Severe postural hypotension; Orthostatic hypotension; Supine position; 100/70, pulse 78/min After 2 to 3 minutes of sitting position; blood pressure ;74/45, pulse 83. After 2 to 3 minutes of standing position; BP 69/44, pulse 88/min Fall precautions, IV fluids Low-dose midodrine Follow PT OT --Acute systolic congestive heart failure; EF 25 to 30%[ 05/2021] IV Lasix, lisinopril, Coreg input output monitoring, Patient blood pressures are in the lower range Cardiology consult if needed --hyperglycemia/uncontrolled diabetes mellitus Accu-Cheks, sliding scale coverage, ADA Diet Long-acting insulin Lantus, A1c 05/2021 is 12.4 Blood sugars reasonable level Diabetic education nutrition education Home health nurse upon discharge --Diabetic neuropathy: Continue gabapentin --Worsening hypothyroidism; Increase Synthroid dose to 200 mg daily Supportive care, probably due to noncompliance --hypertension Patient's blood pressure in the lower range Midodrine low-dose --DVT prophylaxis Lovenox subcu We will closely monitor the patient and adjust the management as needed plan of care reviewed with the patient and her nurse PT OT evaluation Home health at discharge Home health nurse for disease monitoring Plan of care reviewed with the patient and her nurse 07/13/2021; Patient has postural hypotension Fall precautions Low-dose midodrine 07/14/2021 Acute systolic congestive heart failure; Antifailure medications if blood pressures permit Synthroid dose increased to 200 mcg daily Fall precautions, consider cardiology evaluation if needed 07/15/2021; Patient feels better, no hypotension Blood sugars reasonable level PT OT evaluation DC planning in 1 to 2 days if stable History Interval history: I seen and examined the patient at the bedside Patient feels better no new complaints Vital signs noted Hospitalist Physical - Constitutional Vitals: Temp Pulse Resp BP Pulse Ox 97.8 F 81 18 130/90 100 07/15/21 12:02 07/15/21 12:02 07/15/21 12:02 07/15/21 12:02 07/15/21 12:02 General appearance: Present: no acute distress, well-nourished - EENT Eyes: Present: PERRL, EOM intact - Neck Neck: Present: supple, normal ROM - Respiratory Respiratory effort: normal Respiratory: bilateral: diminished, negative: rales, rhonchi, wheezing - Cardiovascular Rhythm: regular Heart Sounds: Present: S1 & S2 - Extremities Extremities: no ischemia, No edema - Abdominal General gastrointestinal: soft, non-tender, non-distended, normal bowel sounds - Integumentary Integumentary: Present: clear, warm - Psychiatric Psychiatric: appropriate mood/affect, cooperative - Neurologic Neurologic: CNII-XII intact, moves all extremities HEART Score - HEART Score Troponin: Troponin T < 0.010 ng/mL (0.00-0.029) 07/11/21 19:21 Results - Labs CBC & Chem 7: 07/11/21 19:21 07/13/21 04:54 Labs: Laboratory Last Values WBC 6.3 K/mm3 (4.5-11.0) 07/11/21 19: RBC 4.67 M/mm3 (3.65-5.03) 07/11/21 19: Hgb 14.0 gm/dl (10.1-14.3) 07/11/21 19: Hct 42.5 % (30.3-42.9) 07/11/21 19: MCV 91 fl (79-97) 07/11/21 19: MCH 30 pg (28-32) 07/11/21 19: MCHC 33 % (30-34) 07/11/21 19: RDW 15.3 % (13.2-15.2) H 07/11/21 19: Plt Count 184 K/mm3 (140-440) 07/11/21 19: Lymph % (Auto) 12.1 % (13.4-35.0) L 07/11/21 19: [place] % (Auto) 6.8 % (0.0-7.3) 07/11/21 19: Eos % (Auto) 1.2 % (0.0-4.3) 07/11/21 19: Baso % (Auto) 1.2 % (0.0-1.8) 07/11/21 19: Lymph # (Auto) 0.8 K/mm3 (1.2-5.4) L 07/11/21 19:21 [place] # (Auto) 0.4 K/mm3 (0.0-0.8) 07/11/21 19:21 Eos # (Auto) 0.1 K/mm3 (0.0-0.4) 07/11/21 19:21 Baso # (Auto) 0.1 K/mm3 (0.0-0.1) 07/11/21 19:21 Seg Neutrophils % 78.7 % (40.0-70.0) H 07/11/21 19:21 Seg Neutrophils # 4.9 K/mm3 (1.8-7.7) 07/11/21 19:21 ABG pH 7.420 (7.320-7.450) 07/12/21 08:50 POC ABG pCO2 53.0 mmHg (32.0-48.0) H 07/12/21 08:50 POC ABG pO2 63.8 mmHg (83-108) L 07/12/21 08:50 POC ABG HCO3 33.6 07/12/21 08:50 ABG O2 Saturation 93.3 (0-100) 07/12/21 08:50 POC ABG Base Excess 7.5 07/12/21 08:50 ABG Hemoglobin 14.3 (12.0-17.5) 07/12/21 08:50 ABG Oxyhemoglobin 92.1 (94-98) L 07/12/21 08:50 ABG Methemoglobin 0 (0.0-1.5) 07/12/21 08:50 ABG Sodium 138.1 mmol/L (136.0-145.0) 07/12/21 08:50 ABG Potassium 4.0 mmol/L (3.40-4.50) 07/12/21 08:50 ABG Chloride 97.0 mmol/L (98-107) L 07/12/21 08:50 ABG Glucose 434 mg/dL (65-95) H 07/12/21 08:50 Carboxyhemoglobin 1.3 (0.5-1.5) 07/12/21 08:50 FiO2 % 21.0 07/12/21 08:50 Sodium 137 mmol/L (137-145) 07/13/21 04:54 Potassium 3.7 mmol/L (3.6-5.0) 07/13/21 04:54 Chloride 95.8 mmol/L (98-107) L 07/13/21 04:54 Carbon Dioxide 32 mmol/L (22-30) H 07/13/21 04:54 Anion Gap 13 mmol/L 07/13/21 04:54 BUN 12 mg/dL (7-17) 07/13/21 04:54 Creatinine 0.8 mg/dL (0.6-1.2) 07/13/21 04:54 Estimated GFR > 60 ml/min 07/13/21 04:54 BUN/Creatinine Ratio 15 % 07/13/21 04:54 Glucose 194 mg/dL (65-100) H 07/13/21 04:54 POC Glucose 270 mg/dL (70-105) H 07/15/21 12:02 Calcium 9.2 mg/dL (8.4-10.2) 07/13/21 04:54 Magnesium 2.00 mg/dL (1.7-2.3) 07/13/21 04:54 Total Bilirubin 0.30 mg/dL (0.1-1.2) 07/13/21 04:54 AST 15 units/L (5-40) 07/13/21 04:54 ALT 12 units/L (7-56) 07/13/21 04:54 Alkaline Phosphatase 77 units/L (35-129) 07/13/21 04:54 Total Creatine Kinase 51 units/L (30-135) 07/11/21 19:21 Troponin T < 0.010 ng/mL (0.00-0.029) 07/11/21 19:21 Total Protein 6.2 g/dL (6.3-8.2) L D 07/13/21 04:54 Albumin 3.1 g/dL (3.9-5) L 07/13/21 04:54 Albumin/Globulin Ratio 1.0 % 07/13/21 04:54 TSH 46.840 mlU/mL (0.270-4.200) H 07/11/21 19:21 Arterial Blood Glucose 434 mg/dL (65-95) H 07/12/21 08:50 Arterial Blood Ionized Calcium 4.8 mg/dL (4.6-5.3) 07/12/21 08:50 Urine Color Straw (Yellow) 07/11/21 Unknown Urine Turbidity Clear (Clear) 07/11/21 Unknown Urine pH 6.0 (5.0-7.0) 07/11/21 Unknown Ur Specific [place] 1.020 (1.003-1.030) 07/11/21 Unknown Urine Protein <15 mg/dl mg/dL (Negative) 07/11/21 Unknown Urine Glucose (UA) >=500 mg/dL (Negative) 07/11/21 Unknown Urine Ketones 20 mg/dL (Negative) 07/11/21 Unknown Urine Blood Neg (Negative) 07/11/21 Unknown Urine Nitrite Neg (Negative) 07/11/21 Unknown Urine Bilirubin Neg (Negative) 07/11/21 Unknown Urine Urobilinogen < 2.0 mg/dL (<2.0) 07/11/21 Unknown Ur Leukocyte Esterase Neg (Negative) 07/11/21 Unknown Urine WBC (Auto) 6.0 /HPF (0.0-6.0) 07/11/21 Unknown Urine RBC (Auto) 3.0 /HPF (0.0-6.0) 07/11/21 Unknown U Epithel Cells (Auto) 1.0 /HPF (0-13.0) 07/11/21 Unknown Plasma/Serum Alcohol < 0.01 % (0-0.07) 07/11/21 19:21 Streeter/IV: Voiding Method Toilet Active Medications - Current Medications Current Medications: Generic Name Dose Route Start Last Admin Trade Name Freq PRN Reason Stop Dose Admin Carvedilol 3.125 mg 07/14/21 22:00 07/15/21 10:45 Carvedilol 3.125 Mg Tab PO 3.125 mg BID AROLDO Administration Furosemide 20 mg 07/15/21 10:00 07/15/21 10:45 Furosemide 20 Mg/2 Ml Inj IV 20 mg QDAY AROLDO Administration Gabapentin 300 mg 07/12/21 14:00 07/15/21 13:47 Gabapentin 300 Mg Cap PO 300 mg TID AROLDO Administration Insulin Glargine 16 units 07/12/21 22:00 07/15/21 00:55 Insulin Glargine 100 Units/Ml SUB-Q 16 units QHS AROLDO Administration Insulin Human Lispro 0 unit 07/12/21 16:30 07/15/21 13:48 Insulin Lispro 100 Unit/Ml SUB-Q 6 unit ACHS AROLDO Administration Protocol Insulin Human Lispro 10 unit 07/12/21 16:30 07/15/21 13:48 Insulin Lispro 100 Unit/Ml SUB-Q 10 unit AC AROLDO Administration Levothyroxine Sodium 200 mcg 07/14/21 18:00 07/15/21 05:46 Levothyroxine 100 Mcg Tab PO 200 mcg DAILY@0600 AROLDO Administration Lisinopril 2.5 mg 07/15/21 10:00 07/15/21 10:45 Lisinopril 5 Mg Tab PO 2.5 mg QDAY AROLDO Administration Midodrine 5 mg 07/15/21 08:00 07/15/21 13:47 Midodrine 5 Mg Tab PO 5 mg TID@0800,1400,1800 AROLDO Administration Pravastatin Sodium 40 mg 07/12/21 22:00 07/14/21 23:10 Pravastatin 40 Mg Tab PO 40 mg QHS AROLDO Administration Tramadol HCl 50 mg 07/12/21 12:00 07/15/21 10:54 Tramadol 50 Mg Tab PO 50 mg Q6HR PRN Administration PAIN
--- NOTE | 2021-07-15 19:42 | Progress Note ---
Assessment and Plan Assessment and plan: --Recurrent syncope; Fall precautions, CT head without contrast Probably vasovagal, postural hypotension CT head without contrast negative for acute abnormality PT OT as tolerated --Severe postural hypotension; Orthostatic hypotension; Supine position; 100/70, pulse 78/min After 2 to 3 minutes of sitting position; blood pressure ;74/45, pulse 83. After 2 to 3 minutes of standing position; BP 69/44, pulse 88/min Fall precautions, IV fluids Low-dose midodrine Follow PT OT, home health upon discharge --Acute systolic congestive heart failure; EF 25 to 30%[ 05/2021] IV Lasix, lisinopril, Coreg input output monitoring, Patient blood pressures are in the lower range Cardiology consult if needed --hyperglycemia/uncontrolled diabetes mellitus Accu-Cheks, sliding scale coverage, ADA Diet Long-acting insulin Lantus, A1c 05/2021 is 12.4 Blood sugars reasonable level Diabetic education nutrition education Home health nurse upon discharge --Diabetic neuropathy: Continue gabapentin --Worsening hypothyroidism; Increase Synthroid dose to 200 mg daily Supportive care, probably due to noncompliance --hypertension Patient's blood pressure in the lower range Midodrine low-dose --DVT prophylaxis Lovenox subcu We will closely monitor the patient and adjust the management as needed plan of care reviewed with the patient and her nurse PT OT evaluation Home health at discharge Home health nurse for disease monitoring Plan of care reviewed with the patient and her nurse 07/13/2021; Patient has postural hypotension Fall precautions Low-dose midodrine 07/14/2021 Acute systolic congestive heart failure; Antifailure medications if blood pressures permit Synthroid dose increased to 200 mcg daily Fall precautions, consider cardiology evaluation if needed 07/15/2021; Patient feels better, no hypotension Blood sugars reasonable level PT OT evaluation DC planning in 1 to 2 days if stable 07/16/2021; Patient feels better Ambulatory in the room Possible discharge home tomorrow if stable DC planning Case management possible home health/ PT History Interval history: I seen and examined the patient at the bedside Patient's chart and medications reviewed Patient feels slightly better However concerned about her home situation Vital signs noted Hospitalist Physical - Constitutional Vitals: Temp Pulse Resp BP Pulse Ox 98.4 F 77 18 97/61 96 07/15/21 16:02 07/15/21 16:02 07/15/21 18:15 07/15/21 16:02 07/15/21 18:15 General appearance: Present: no acute distress, well-nourished - EENT Eyes: Present: PERRL, EOM intact - Neck Neck: Present: supple, normal ROM - Respiratory Respiratory effort: normal Respiratory: bilateral: diminished, negative: rales, rhonchi, wheezing - Cardiovascular Rhythm: regular Heart Sounds: Present: S1 & S2 - Extremities Extremities: no ischemia, No edema - Abdominal General gastrointestinal: soft, non-tender, non-distended, normal bowel sounds - Integumentary Integumentary: Present: clear, warm - Psychiatric Psychiatric: appropriate mood/affect, cooperative - Neurologic Neurologic: CNII-XII intact, moves all extremities HEART Score - HEART Score Troponin: Troponin T < 0.010 ng/mL (0.00-0.029) 07/11/21 19: Results - Labs CBC & Chem 7: 07/11/21 19:21 07/13/21 04:54 Labs: Laboratory Last Values WBC 6.3 K/mm3 (4.5-11.0) 07/11/21 19: RBC 4.67 M/mm3 (3.65-5.03) 07/11/21 19: Hgb 14.0 gm/dl (10.1-14.3) 07/11/21 19: Hct 42.5 % (30.3-42.9) 07/11/21 19: MCV 91 fl (79-97) 07/11/21 19: MCH 30 pg (28-32) 07/11/21 19: MCHC 33 % (30-34) 07/11/21 19: RDW 15.3 % (13.2-15.2) H 07/11/21 19: Plt Count 184 K/mm3 (140-440) 07/11/21 19: Lymph % (Auto) 12.1 % (13.4-35.0) L 07/11/21 19: [place] % (Auto) 6.8 % (0.0-7.3) 07/11/21 19: Eos % (Auto) 1.2 % (0.0-4.3) 07/11/21 19: Baso % (Auto) 1.2 % (0.0-1.8) 07/11/21 19:21 Lymph # (Auto) 0.8 K/mm3 (1.2-5.4) L 07/11/21 19:21 [place] # (Auto) 0.4 K/mm3 (0.0-0.8) 07/11/21 19:21 Eos # (Auto) 0.1 K/mm3 (0.0-0.4) 07/11/21 19:21 Baso # (Auto) 0.1 K/mm3 (0.0-0.1) 07/11/21 19:21 Seg Neutrophils % 78.7 % (40.0-70.0) H 07/11/21 19: Seg Neutrophils # 4.9 K/mm3 (1.8-7.7) 07/11/21 19:21 ABG pH 7.420 (7.320-7.450) 07/12/21 08:50 POC ABG pCO2 53.0 mmHg (32.0-48.0) H 07/12/21 08:50 POC ABG pO2 63.8 mmHg (83-108) L 07/12/21 08:50 POC ABG HCO3 33.6 07/12/21 08:50 ABG O2 Saturation 93.3 (0-100) 07/12/21 08:50 POC ABG Base Excess 7.5 07/12/21 08:50 ABG Hemoglobin 14.3 (12.0-17.5) 07/12/21 08:50 ABG Oxyhemoglobin 92.1 (94-98) L 07/12/21 08:50 ABG Methemoglobin 0 (0.0-1.5) 07/12/21 08:50 ABG Sodium 138.1 mmol/L (136.0-145.0) 07/12/21 08:50 ABG Potassium 4.0 mmol/L (3.40-4.50) 07/12/21 08:50 ABG Chloride 97.0 mmol/L (98-107) L 07/12/21 08:50 ABG Glucose 434 mg/dL (65-95) H 07/12/21 08:50 Carboxyhemoglobin 1.3 (0.5-1.5) 07/12/21 08:50 FiO2 % 21.0 07/12/21 08:50 Sodium 137 mmol/L (137-145) 07/13/21 04:54 Potassium 3.7 mmol/L (3.6-5.0) 07/13/21 04:54 Chloride 95.8 mmol/L (98-107) L 07/13/21 04:54 Carbon Dioxide 32 mmol/L (22-30) H 07/13/21 04:54 Anion Gap 13 mmol/L 07/13/21 04:54 BUN 12 mg/dL (7-17) 07/13/21 04:54 Creatinine 0.8 mg/dL (0.6-1.2) 07/13/21 04:54 Estimated GFR > 60 ml/min 07/13/21 04:54 BUN/Creatinine Ratio 15 % 07/13/21 04:54 Glucose 194 mg/dL (65-100) H 07/13/21 04:54 POC Glucose 270 mg/dL (70-105) H 07/15/21 12:02 Calcium 9.2 mg/dL (8.4-10.2) 07/13/21 04:54 Magnesium 2.00 mg/dL (1.7-2.3) 07/13/21 04:54 Total Bilirubin 0.30 mg/dL (0.1-1.2) 07/13/21 04:54 AST 15 units/L (5-40) 07/13/21 04:54 ALT 12 units/L (7-56) 07/13/21 04:54 Alkaline Phosphatase 77 units/L (35-129) 07/13/21 04:54 Total Creatine Kinase 51 units/L (30-135) 07/11/21 19:21 Troponin T < 0.010 ng/mL (0.00-0.029) 07/11/21 19:21 Total Protein 6.2 g/dL (6.3-8.2) L D 07/13/21 04:54 Albumin 3.1 g/dL (3.9-5) L 07/13/21 04:54 Albumin/Globulin Ratio 1.0 % 07/13/21 04:54 TSH 46.840 mlU/mL (0.270-4.200) H 07/11/21 19:21 Arterial Blood Glucose 434 mg/dL (65-95) H 07/12/21 08:50 Arterial Blood Ionized Calcium 4.8 mg/dL (4.6-5.3) 07/12/21 08:50 Urine Color Straw (Yellow) 07/11/21 Unknown Urine Turbidity Clear (Clear) 07/11/21 Unknown Urine pH 6.0 (5.0-7.0) 07/11/21 Unknown Ur Specific [place] 1.020 (1.003-1.030) 07/11/21 Unknown Urine Protein <15 mg/dl mg/dL (Negative) 07/11/21 Unknown Urine Glucose (UA) >=500 mg/dL (Negative) 07/11/21 Unknown Urine Ketones 20 mg/dL (Negative) 07/11/21 Unknown Urine Blood Neg (Negative) 07/11/21 Unknown Urine Nitrite Neg (Negative) 07/11/21 Unknown Urine Bilirubin Neg (Negative) 07/11/21 Unknown Urine Urobilinogen < 2.0 mg/dL (<2.0) 07/11/21 Unknown Ur Leukocyte Esterase Neg (Negative) 07/11/21 Unknown Urine WBC (Auto) 6.0 /HPF (0.0-6.0) 07/11/21 Unknown Urine RBC (Auto) 3.0 /HPF (0.0-6.0) 07/11/21 Unknown U Epithel Cells (Auto) 1.0 /HPF (0-13.0) 07/11/21 Unknown Plasma/Serum Alcohol < 0.01 % (0-0.07) 07/11/21 19:21 Streeter/IV: Voiding Method Toilet Active Medications - Current Medications Current Medications: Generic Name Dose Route Start Last Admin Trade Name Jona PRN Reason Stop Dose Admin Carvedilol 3.125 mg 07/14/21 22:00 07/15/21 10:45 Carvedilol 3.125 Mg Tab PO 3.125 mg BID AROLDO Administration Furosemide 20 mg 07/15/21 10:00 07/15/21 10:45 Furosemide 20 Mg/2 Ml Inj IV 20 mg QDAY AROLDO Administration Gabapentin 300 mg 07/12/21 14:00 07/15/21 13:47 Gabapentin 300 Mg Cap PO 300 mg TID AROLDO Administration Insulin Glargine 16 units 07/12/21 22:00 07/15/21 00:55 Insulin Glargine 100 Units/Ml SUB-Q 16 units QHS AROLDO Administration Insulin Human Lispro 0 unit 07/12/21 16:30 07/15/21 18:10 Insulin Lispro 100 Unit/Ml SUB-Q Not Given ACHS [facility] Protocol Insulin Human Lispro 10 unit 07/12/21 16:30 07/15/21 18:10 Insulin Lispro 100 Unit/Ml SUB-Q Not Given AC [facility] Levothyroxine Sodium 200 mcg 07/14/21 18:00 07/15/21 05:46 Levothyroxine 100 Mcg Tab PO 200 mcg DAILY@0600 AROLDO Administration Lisinopril 2.5 mg 07/15/21 10:00 07/15/21 10:45 Lisinopril 5 Mg Tab PO 2.5 mg QDAY AROLDO Administration Midodrine 5 mg 07/15/21 08:00 07/15/21 17:43 Midodrine 5 Mg Tab PO 5 mg TID@0800,1400,1800 AROLDO Administration Pravastatin Sodium 40 mg 07/12/21 22:00 07/14/21 23:10 Pravastatin 40 Mg Tab PO 40 mg QHS AROLDO Administration Tramadol HCl 50 mg 07/12/21 12:00 07/15/21 10:54 Tramadol 50 Mg Tab PO 50 mg Q6HR PRN Administration PAIN
[2021-07-15] MEDS: PRAVASTATIN 40 MG TAB PO SCH (22:23)
[2021-07-16] MEDS: LEVOTHYROXINE 100 MCG TAB PO SCH (06:50)
[2021-07-16] MEDS: INSULIN LISPRO 100 UNIT/ML SUB-Q SCH ×7 (08:19→22:51)
[2021-07-16] MEDS: FUROSEMIDE 20 MG/2 ML INJ IV SCH ×3 (09:22→13:41)
[2021-07-16] MEDS: GABAPENTIN 300 MG CAP PO SCH ×2 (09:22→13:38)
[2021-07-16] MEDS: carvediloL 3.125 MG TAB PO SCH ×4 (09:22→22:49)
[2021-07-16] MEDS: MIDODRINE 5 MG TAB PO SCH ×3 (09:22→17:10)
[2021-07-16] MEDS: LISINOPRIL 5 MG TAB PO SCH ×3 (09:22→13:41)
[2021-07-16] MEDS: ACETAMINOPHEN 325 MG TAB PO PRN (10:16)
[2021-07-16] MEDS: INSULIN GLARGINE 100 UNITS/ML SUB-Q SCH (22:51)
[2021-07-16] MEDS: PRAVASTATIN 40 MG TAB PO SCH (22:51)
[2021-07-17] MEDS: LEVOTHYROXINE 100 MCG TAB PO SCH (05:31)
[2021-07-17] MEDS: INSULIN LISPRO 100 UNIT/ML SUB-Q SCH ×6 (08:03→17:44)
--- NOTE | 2021-07-17 08:47 | Progress Note ---
Assessment and Plan Assessment and plan: --Recurrent syncope; Fall precautions, CT head without contrast Probably vasovagal, postural hypotension CT head without contrast negative for acute abnormality PT OT as tolerated --Severe postural hypotension; Orthostatic hypotension; Supine position; 100/70, pulse 78/min After 2 to 3 minutes of sitting position; blood pressure ;74/45, pulse 83. After 2 to 3 minutes of standing position; BP 69/44, pulse 88/min Fall precautions, IV fluids Low-dose midodrine Follow PT OT, home health upon discharge --Acute systolic congestive heart failure; EF 25 to 30%[ 05/2021] IV Lasix, lisinopril, Coreg input output monitoring, Patient blood pressures are in the lower range Cardiology consult if needed --hyperglycemia/uncontrolled diabetes mellitus Accu-Cheks, sliding scale coverage, ADA Diet Long-acting insulin Lantus, A1c 05/2021 is 12.4 Blood sugars reasonable level Diabetic education nutrition education Home health nurse upon discharge --Diabetic neuropathy: Continue gabapentin --Worsening hypothyroidism; Increase Synthroid dose to 200 mg daily Supportive care, probably due to noncompliance --hypertension Patient's blood pressure in the lower range Midodrine low-dose --DVT prophylaxis Lovenox subcu We will closely monitor the patient and adjust the management as needed plan of care reviewed with the patient and her nurse PT OT evaluation Home health at discharge Home health nurse for disease monitoring Plan of care reviewed with the patient and her nurse 07/13/2021; Patient has postural hypotension Fall precautions Low-dose midodrine 07/14/2021 Acute systolic congestive heart failure; Antifailure medications if blood pressures permit Synthroid dose increased to 200 mcg daily Fall precautions, consider cardiology evaluation if needed 07/15/2021; Patient feels better, no hypotension Blood sugars reasonable level PT OT evaluation DC planning in 1 to 2 days if stable 07/16/2021; Patient feels better Ambulatory in the room Possible discharge home tomorrow if stable DC planning Case management possible home health/ PT 07/17/2021; Reconsult PT and OT DC planning per case management pending PT OT Patient has many social issues Hospitalist Physical - Constitutional Vitals: Temp Pulse Resp BP Pulse Ox 98.4 F 81 14 103/60 94 07/17/21 03:34 07/17/21 03:34 07/17/21 03:34 07/17/21 03:34 07/17/21 03:34 General appearance: Present: no acute distress, well-nourished HEART Score - HEART Score Troponin: Troponin T < 0.010 ng/mL (0.00-0.029) 07/11/21 19:21 Results - Labs CBC & Chem 7: 07/11/21 19:21 07/13/21 04:54 Labs: Laboratory Last Values WBC 6.3 K/mm3 (4.5-11.0) 07/11/21 19: RBC 4.67 M/mm3 (3.65-5.03) 07/11/21 19: Hgb 14.0 gm/dl (10.1-14.3) 07/11/21 19: Hct 42.5 % (30.3-42.9) 07/11/21 19: MCV 91 fl (79-97) 07/11/21 19: MCH 30 pg (28-32) 07/11/21 19: MCHC 33 % (30-34) 07/11/21 19: RDW 15.3 % (13.2-15.2) H 07/11/21 19:21 Plt Count 184 K/mm3 (140-440) 07/11/21 19: Lymph % (Auto) 12.1 % (13.4-35.0) L 07/11/21 19: [place] % (Auto) 6.8 % (0.0-7.3) 07/11/21 19: Eos % (Auto) 1.2 % (0.0-4.3) 07/11/21 19: Baso % (Auto) 1.2 % (0.0-1.8) 07/11/21 19: Lymph # (Auto) 0.8 K/mm3 (1.2-5.4) L 07/11/21 19: [place] # (Auto) 0.4 K/mm3 (0.0-0.8) 07/11/21 19: Eos # (Auto) 0.1 K/mm3 (0.0-0.4) 07/11/21 19:21 Baso # (Auto) 0.1 K/mm3 (0.0-0.1) 07/11/21 19: Seg Neutrophils % 78.7 % (40.0-70.0) H 07/11/21 19:21 Seg Neutrophils # 4.9 K/mm3 (1.8-7.7) 07/11/21 19:21 ABG pH 7.420 (7.320-7.450) 07/12/21 08:50 POC ABG pCO2 53.0 mmHg (32.0-48.0) H 07/12/21 08:50 POC ABG pO2 63.8 mmHg (83-108) L 07/12/21 08:50 POC ABG HCO3 33.6 07/12/21 08:50 ABG O2 Saturation 93.3 (0-100) 07/12/21 08:50 POC ABG Base Excess 7.5 07/12/21 08:50 ABG Hemoglobin 14.3 (12.0-17.5) 07/12/21 08:50 ABG Oxyhemoglobin 92.1 (94-98) L 07/12/21 08:50 ABG Methemoglobin 0 (0.0-1.5) 07/12/21 08:50 ABG Sodium 138.1 mmol/L (136.0-145.0) 07/12/21 08:50 ABG Potassium 4.0 mmol/L (3.40-4.50) 07/12/21 08:50 ABG Chloride 97.0 mmol/L (98-107) L 07/12/21 08:50 ABG Glucose 434 mg/dL (65-95) H 07/12/21 08:50 Carboxyhemoglobin 1.3 (0.5-1.5) 07/12/21 08:50 FiO2 % 21.0 07/12/21 08:50 Sodium 137 mmol/L (137-145) 07/13/21 04:54 Potassium 3.7 mmol/L (3.6-5.0) 07/13/21 04:54 Chloride 95.8 mmol/L (98-107) L 07/13/21 04:54 Carbon Dioxide 32 mmol/L (22-30) H 07/13/21 04:54 Anion Gap 13 mmol/L 07/13/21 04:54 BUN 12 mg/dL (7-17) 07/13/21 04:54 Creatinine 0.8 mg/dL (0.6-1.2) 07/13/21 04:54 Estimated GFR > 60 ml/min 07/13/21 04:54 BUN/Creatinine Ratio 15 % 07/13/21 04:54 Glucose 194 mg/dL (65-100) H 07/13/21 04:54 POC Glucose 76 mg/dL (70-105) 07/16/21 22:15 Calcium 9.2 mg/dL (8.4-10.2) 07/13/21 04:54 Magnesium 2.00 mg/dL (1.7-2.3) 07/13/21 04:54 Total Bilirubin 0.30 mg/dL (0.1-1.2) 07/13/21 04:54 AST 15 units/L (5-40) 07/13/21 04:54 ALT 12 units/L (7-56) 07/13/21 04:54 Alkaline Phosphatase 77 units/L (35-129) 07/13/21 04:54 Total Creatine Kinase 51 units/L (30-135) 07/11/21 19:21 Troponin T < 0.010 ng/mL (0.00-0.029) 07/11/21 19:21 Total Protein 6.2 g/dL (6.3-8.2) L D 07/13/21 04:54 Albumin 3.1 g/dL (3.9-5) L 07/13/21 04:54 Albumin/Globulin Ratio 1.0 % 07/13/21 04:54 TSH 46.840 mlU/mL (0.270-4.200) H 07/11/21 19:21 Arterial Blood Glucose 434 mg/dL (65-95) H 07/12/21 08:50 Arterial Blood Ionized Calcium 4.8 mg/dL (4.6-5.3) 07/12/21 08:50 Urine Color Straw (Yellow) 07/11/21 Unknown Urine Turbidity Clear (Clear) 07/11/21 Unknown Urine pH 6.0 (5.0-7.0) 07/11/21 Unknown Ur Specific [place] 1.020 (1.003-1.030) 07/11/21 Unknown Urine Protein <15 mg/dl mg/dL (Negative) 07/11/21 Unknown Urine Glucose (UA) >=500 mg/dL (Negative) 07/11/21 Unknown Urine Ketones 20 mg/dL (Negative) 07/11/21 Unknown Urine Blood Neg (Negative) 07/11/21 Unknown Urine Nitrite Neg (Negative) 07/11/21 Unknown Urine Bilirubin Neg (Negative) 07/11/21 Unknown Urine Urobilinogen < 2.0 mg/dL (<2.0) 07/11/21 Unknown Ur Leukocyte Esterase Neg (Negative) 07/11/21 Unknown Urine WBC (Auto) 6.0 /HPF (0.0-6.0) 07/11/21 Unknown Urine RBC (Auto) 3.0 /HPF (0.0-6.0) 07/11/21 Unknown U Epithel Cells (Auto) 1.0 /HPF (0-13.0) 07/11/21 Unknown Plasma/Serum Alcohol < 0.01 % (0-0.07) 07/11/21 19:21 Streeter/IV: Voiding Method Toilet Active Medications - Current Medications Current Medications: Generic Name Dose Route Start Last Admin Trade Name Freq PRN Reason Stop Dose Admin Acetaminophen 650 mg 07/16/21 10:14 07/16/21 10:16 Acetaminophen 325 Mg Tab PO 650 mg Q6H PRN Administration Pain, Mild (1-3) Carvedilol 3.125 mg 07/14/21 22:00 07/16/21 22:49 Carvedilol 3.125 Mg Tab PO 3.125 mg BID AROLDO Administration Furosemide 20 mg 07/15/21 10:00 07/16/21 13:41 Furosemide 20 Mg/2 Ml Inj IV 20 mg QDAY AROLDO Administration Insulin Glargine 16 units 07/12/21 22:00 07/16/21 22:51 Insulin Glargine 100 Units/Ml SUB-Q 16 units QHS AROLDO Administration Insulin Human Lispro 0 unit 07/12/21 16:30 07/16/21 22:51 Insulin Lispro 100 Unit/Ml SUB-Q Not Given ACHS [facility] Protocol Insulin Human Lispro 10 unit 07/12/21 16:30 07/16/21 16:49 Insulin Lispro 100 Unit/Ml SUB-Q 10 unit AC AROLDO Administration Levothyroxine Sodium 200 mcg 07/14/21 18:00 07/17/21 05:31 Levothyroxine 100 Mcg Tab PO 200 mcg DAILY@0600 [facility] Administration Lisinopril 2.5 mg 07/15/21 10:00 07/16/21 13:41 Lisinopril 5 Mg Tab PO 2.5 mg QDAY AROLDO Administration Midodrine 5 mg 07/15/21 08:00 07/16/21 17:10 Midodrine 5 Mg Tab PO 5 mg TID@0800,1400,1800 AROLDO Administration Pravastatin Sodium 40 mg 07/12/21 22:00 07/16/21 22:51 Pravastatin 40 Mg Tab PO 40 mg QHS AROLDO Administration
[2021-07-17] MEDS: MIDODRINE 5 MG TAB PO SCH ×3 (09:05→17:43)
[2021-07-17] MEDS: carvediloL 3.125 MG TAB PO SCH (10:06)
[2021-07-17] MEDS: FUROSEMIDE 20 MG/2 ML INJ IV SCH (10:06)
[2021-07-17] MEDS: LISINOPRIL 5 MG TAB PO SCH (10:06)
[2021-07-17] MEDS: ACETAMINOPHEN 325 MG TAB PO PRN (10:12)
[2021-07-17 10:18] VITALS: BP 100/63
--- NOTE | 2021-07-17 16:11 | Discharge Summary ---
Providers - Providers Date of Admission: 07/13/21 14:00 Date of discharge: 07/17/21 Attending physician: KEN GONZALES 07/12/21 17:51 Occupational Therapy Evaluate and Treat [CONS] Routine Comment: Reason For Exam: Recurrent syncope/evaluate and treat/DC needs Physical Therapy Evaluation and Treat [CONS] Routine Comment: DC needs Reason For Exam: Recurrent syncope/unsteady gait/evaluate and treat 07/17/21 08:44 Physical Therapy Evaluation and Treat [CONS] Routine Comment: Reason For Exam: Reevaluate and treat/DC needs/patient feels better Primary care physician: C[employer]AR[employer] P[employer]ER Hospitalization Condition: Stable Hospital course: --Recurrent syncope; Fall precautions, CT head without contrast Probably vasovagal, postural hypotension CT head without contrast negative for acute abnormality PT OT as tolerated --Severe postural hypotension; Orthostatic hypotension; Supine position; 100/70, pulse 78/min After 2 to 3 minutes of sitting position; blood pressure ;74/45, pulse 83. After 2 to 3 minutes of standing position; BP 69/44, pulse 88/min Fall precautions, IV fluids Low-dose midodrine Follow PT OT, home health upon discharge --Acute systolic congestive heart failure; EF 25 to 30%[ 05/2021] IV Lasix, lisinopril, Coreg input output monitoring, Patient blood pressures are in the lower range Cardiology consult if needed --hyperglycemia/uncontrolled diabetes mellitus Accu-Cheks, sliding scale coverage, ADA Diet Long-acting insulin Lantus, A1c 05/2021 is 12.4 Blood sugars reasonable level Diabetic education nutrition education Home health nurse upon discharge --Diabetic neuropathy: Continue gabapentin --Worsening hypothyroidism; Increase Synthroid dose to 200 mg daily Supportive care, probably due to noncompliance --hypertension Patient's blood pressure in the lower range Midodrine low-dose Disposition: 01 HOME / SELF CARE / HOMELESS Final Discharge Diagnosis (Prints w/discharge instructions): Recurrent syncope/resolved. Postural hypotension/resolved. Acute systolic congestive heart failure EF 25 to 30%. Hyperglycemia. Diabetes mellitus. Hypothyroidism. Hypertension Time spent for discharge: 35 min Core Measure Documentation - Palliative Care Palliative Care/ Comfort Measures: Not Applicable - Core Measures Any of the following diagnoses?: heart failure - Heart Failure Discharge Requirements MILDRED/ARB for LVSD if EF <40%: Yes Beta cele at discharge: Yes Exam - Constitutional Vitals: Temp Pulse Resp BP Pulse Ox 98.7 F 89 14 100/63 97 07/17/21 08:41 07/17/21 10:06 07/17/21 11:12 07/17/21 10:06 07/17/21 10:04 General appearance: Present: no acute distress, well-nourished - EENT Eyes: Present: PERRL, EOM intact - Neck Neck: Present: supple, normal ROM - Respiratory Respiratory effort: normal Respiratory: bilateral: diminished, negative: rales, rhonchi, wheezing - Cardiovascular Rhythm: regular Heart Sounds: Present: S1 & S2 - Extremities Extremities: no ischemia, No edema - Abdominal General gastrointestinal: Present: soft, non-tender, non-distended, normal bowel sounds - Integumentary Integumentary: Present: clear, warm - Musculoskeletal Musculoskeletal: strength equal bilaterally, generalized weakness - Psychiatric Psychiatric: appropriate mood/affect, cooperative - Neurologic Neurologic: moves all extremities Plan Activity: advance as tolerated, fall precautions Diet: diabetic Additional Instructions: Advised to be compliant with medications diet and follow-up visits. Fall precautions Follow up with: JEROME SMITH MD [Staff Physician] - 3-5 Days PRIMARY CARE, [Primary Care Provider] - 3-5 Days EL MERRILL MD [Staff Physician] - 7 Days MAGDA RUSSELL MD [Staff Physician] - 14 Days Prescriptions: carvediloL [Coreg] 3.125 mg PO BID #30 tablet metFORMIN [Glucophage] 500 mg PO BID #60 tablet Lispro Insulin [HumaLOG] 10 unit SUB-Q AC #1 vial Insulin Glargine [Lantus VIAL] 16 units SUB-Q QHS #1 vial Furosemide [Lasix] 20 mg PO QDAY #30 tablet Levothyroxine Sodium [Levothyroxine] 200 mcg PO DAILY #30 capsule Pravastatin [Pravachol] 40 mg PO QHS #30 tablet Midodrine [Proamatine] 5 mg PO TID@0800,1400,1800 #90 tablet lisinopriL [Zestril TAB] 2.5 mg PO QDAY #60 tablet
== END 2021-07-17 18:30 | disposition home health service (06) | DRG 312 ==
LOC: ED 17:55 → 4A 07-12 09:05 → OBSVTOIN 07-13 14:00
PROVIDERS: ADMIT Internal Medicine; ATTEND Internal Medicine
DX: I95.1 Orthostatic hypotension (principal); I50.21 Acute systolic (congestive) heart failure; E11.65 Type 2 diabetes mellitus with hyperglycemia; E11.40 Type 2 diabetes mellitus with diabetic neuropathy, unspecified; I11.0 Hypertensive heart disease with heart failure; K21.9 Gastro-esophageal reflux disease without esophagitis; M19.90 Unspecified osteoarthritis, unspecified site; D64.9 Anemia, unspecified; G43.909 Migraine, unspecified, not intractable, without status migrainosus; Z90.49 Acquired absence of other specified parts of digestive tract; Z82.49 Family history of ischemic heart disease and other diseases of the circulatory system; Z79.4 Long term (current) use of insulin; Z79.899 Other long term (current) drug therapy; E86.0 Dehydration; E78.5 Hyperlipidemia, unspecified; E03.9 Hypothyroidism, unspecified
CPT/HCPCS: 36415; 70450; 71045; 80048; 80053; 80320; 81001; 82550; 82805; 82962; 83735; 84443; 84484; 85025; 93005; 99406; G0378; G0480; J1815; J1940; J7030; J7040; J7120

== ENCOUNTER 2022-05-25 07:37 | Emergency (ER) | payer MEDICAID, MEDICARE ==
[2022-05-25 11:15] LABS: RBC,Urine > 182.0 /HPF (0.0-6.0); WBC,Urine > 182.0 /HPF (0.0-6.0)
[2022-05-25 11:39] LABS: Bilirubin,Urine Negative (Negative); Blood,Urine 3+ (Negative); Color,Urine Amber (Yellow); Protein,Urine >500 mg/dL (Negative)
[2022-05-25] MEDS ORDERED: LIDOCAINE-MPF (1%) 10 MG/1 ML VIAL 5 ML INFILTRATI ONE (12:18)
--- NOTE | 2022-05-25 12:35 | Emergency Department Report ---
ED Female HPI - General Chief complaint: Abdominal Pain Stated complaint: UTI/BLOOD IN URINE Time Seen by Provider: 05/25/22 09:33 Source: patient Mode of arrival: Ambulatory Limitations: No Limitations - History of Present Illness Initial comments: 51-year-old black female with a past medical history of diabetes presents to the emergency department for evaluation of 1 day history of lower abdominal pain, hematuria, dysuria, and nausea. She denies fever, vomiting, and vaginal discharge. She states that she also had an elevated blood sugar of 400 when she woke up this morning. She states that she took her prescribed home insulin but did not recheck her blood sugar after taking her insulin. Complaint: dysuria -: Gradual, days(s) (1) Location: suprapubic, LLQ, RLQ Radiation: non-radiating Severity: moderate Severity scale (0 -10): 9 Quality: aching Consistency: intermittent Worsens with: urination Are you Now?: No (In menopause) - Related Data Previous Rx's Medication Instructions Recorded Last Taken Type Ferrous Sulfate [Feosol 325 MG tab] 325 mg PO BID #60 tablet 09/28/15 01/09/16 Rx traMADoL [Ultram 50 MG tab] 50 mg PO Q6HR PRN #10 tablet 03/11/18 Unknown Rx dexAMETHasone [Decadron] 6 mg PO DAILY #6 tablet 06/20/21 Unknown Rx metFORMIN [Glucophage] 500 mg PO BID #60 tablet 07/11/21 Unknown Rx Furosemide [Lasix] 20 mg PO QDAY #30 tablet 07/17/21 Unknown Rx Insulin Glargine [Lantus VIAL] 16 units SUB-Q QHS #1 vial 07/17/21 Unknown Rx Levothyroxine Sodium 200 mcg PO DAILY #30 capsule 07/17/21 Unknown Rx [Levothyroxine] Lispro Insulin [HumaLOG] 10 unit SUB-Q AC #1 vial 07/17/21 Unknown Rx Midodrine [Proamatine] 5 mg PO TID@0800,1400,1800 #90 07/17/21 Unknown Rx tablet Pravastatin [Pravachol] 40 mg PO QHS #30 tablet 07/17/21 Unknown Rx carvediloL [Coreg] 3.125 mg PO BID #30 tablet 07/17/21 Unknown Rx lisinopriL [Zestril TAB] 2.5 mg PO QDAY #60 tablet 07/17/21 Unknown Rx Ciprofloxacin HCl 500 mg PO BID 5 Days #10 tab 05/25/22 Unknown Rx Allergies Allergy/AdvReac Type Severity Reaction Status Date / Time No Known Allergies Allergy Verified 06/14/21 19:54 ED Review of Systems ROS: Stated complaint: UTI/BLOOD IN URINE Other details as noted in HPI Comment: All other systems reviewed and negative Constitutional: denies: chills, fever, malaise, weakness Eyes: denies: vision change ENT: denies: congestion Respiratory: denies: shortness of breath Cardiovascular: denies: chest pain, palpitations Gastrointestinal: abdominal pain, nausea. denies: vomiting, diarrhea, hematemesis, melena, hematochezia Genitourinary: dysuria, frequency, hematuria. denies: urgency, discharge Musculoskeletal: denies: back pain Neurological: denies: headache, weakness ED Past Medical Hx - Past Medical History Hx Hypertension: Yes (x 2 years) Hx Diabetes: Yes (x 3 years) Hx GERD: Yes (past hx) Hx Renal Disease: No Hx Sickle Cell Disease: Yes (trait only) Hx Arthritis: Yes Hx Headaches / Migraines: Yes Hx Seizures: No Hx Asthma: No Additional medical history: THYROIDANEMIAGOITER - Surgical History Additional Surgical History: X 2. hysterectomy - Social History Smoking Status: Former Smoker - Medications Home Medications: Home Medications Medication Instructions Recorded Confirmed Last Taken Type Ferrous Sulfate [Feosol 325 MG tab] 325 mg PO BID #60 tablet 09/28/15 06/15/21 01/09/16 Rx traMADoL [Ultram 50 MG tab] 50 mg PO Q6HR PRN #10 tablet 03/11/18 06/15/21 Unknown Rx dexAMETHasone [Decadron] 6 mg PO DAILY #6 tablet 06/20/21 Unknown Rx metFORMIN [Glucophage] 500 mg PO BID #60 tablet 07/11/21 Unknown Rx Furosemide [Lasix] 20 mg PO QDAY #30 tablet 07/17/21 Unknown Rx Insulin Glargine [Lantus VIAL] 16 units SUB-Q QHS #1 vial 07/17/21 Unknown Rx Levothyroxine Sodium 200 mcg PO DAILY #30 capsule 07/17/21 Unknown Rx [Levothyroxine] Lispro Insulin [HumaLOG] 10 unit SUB-Q AC #1 vial 07/17/21 Unknown Rx Midodrine [Proamatine] 5 mg PO TID@0800,1400,1800 #90 07/17/21 Unknown Rx tablet Pravastatin [Pravachol] 40 mg PO QHS #30 tablet 07/17/21 Unknown Rx carvediloL [Coreg] 3.125 mg PO BID #30 tablet 07/17/21 Unknown Rx lisinopriL [Zestril TAB] 2.5 mg PO QDAY #60 tablet 07/17/21 Unknown Rx Ciprofloxacin HCl 500 mg PO BID 5 Days #10 tab 05/25/22 Unknown Rx ED Physical Exam - General Limitations: No Limitations General appearance: alert, in no apparent distress - Head Head exam: Present: atraumatic, normocephalic - Eye Eye exam: Present: normal appearance. Absent: conjunctival injection - Neck Neck exam: Present: normal inspection, full ROM. Absent: lymphadenopathy - Respiratory Respiratory exam: Present: normal lung sounds bilaterally. Absent: respiratory distress, wheezes, rales, rhonchi, stridor, chest wall tenderness - Cardiovascular Cardiovascular Exam: Present: regular rate, normal heart sounds - GI/Abdominal GI/Abdominal exam: Present: soft. Absent: distended, tenderness, guarding, rebound, rigid, normal bowel sounds - Extremities Exam Extremities exam: Present: normal inspection, normal capillary refill - Back Exam Back exam: Present: normal inspection. Absent: CVA tenderness (R), CVA tenderness (L), paraspinal tenderness, vertebral tenderness - Neurological Exam Neurological exam: Present: alert, oriented X3 - Psychiatric Psychiatric exam: Present: normal affect, normal mood - Skin Skin exam: Present: warm, dry, intact, normal color ED Course Vital Signs 05/25/22 08:28 Temperature 97.8 F Pulse Rate 91 H Respiratory 18 Rate Blood Pressure 188/107 [Left] O2 Sat by Pulse 99 Oximetry ED Medical Decision Making - Medical Decision Making 51-year-old black female with a past medical history of diabetes presents to the emergency department for evaluation of 1 day history of lower abdominal pain, hematuria, dysuria, and nausea. She denies fever, vomiting, and vaginal discharge. She states that she also had an elevated blood sugar of 400 when she woke up this morning. She states that she took her prescribed home insulin but did not recheck her blood sugar after taking her insulin. Physical exam unremarkable. Repeat blood sugar in the emergency department was 172. Urine positive for urinary tract infection. Patient was given Rocephin 1 g IM then discharged home with 5-day course of Cipro 500 mg twice daily. She was advised to take medications as prescribed, increase intake of 9 caffeinated fluids, follow-up with with her primary care provider if no improvement or worsening symptoms, or return to the emergency department as needed. She verbalizes understanding of and agreement with plan of care. Laboratory Results - last 24 hr 05/25/22 05/25/22 10:10 10:11 POC Glucose 172 H Urine Color [place] Urine Turbidity Turbid Urine pH 7.0 Ur Specific [place] 1.020 Urine Protein >500 Urine Glucose (UA) Negative Urine Ketones 3+ Urine Blood 3+ Urine Nitrite Positive Ur Reducing Substances Not Reportable Urine Bilirubin Negative Urine Ictotest Not Reportable Urine Urobilinogen 0.0 Ur Leukocyte Esterase 2+ Urine WBC (Auto) > 182.0 H Urine RBC (Auto) > 182.0 U Epithel Cells (Auto) 59.0 H Critical care attestation.: If time is entered above; I have spent that time in minutes in the direct care of this critically ill patient, excluding procedure time. ED Disposition Clinical Impression: Blood glucose elevated UTI (urinary tract infection) Qualifiers: Urinary tract infection type: acute cystitis Hematuria presence: with hematuria Qualified Code(s): N30.01 - Acute cystitis with hematuria Disposition: HOME / SELF CARE / HOMELESS Is pt being admited?: No Does the pt Need Aspirin: No Condition: Stable Instructions: Antibiotic Medicine, Adult, [id number], Urinary Tract Infection, Adult, [id number], Hyperglycemia, [id number], Abdominal Pain (ED) Additional Instructions: Take medications as prescribed. Follow-up with your primary care provider if no improvement or worsening symptoms. Return to the emergency department as needed. Prescriptions: Ciprofloxacin HCl 500 mg PO BID 5 Days #10 tab Referrals: JEROME SMITH MD [Primary Care Provider] - 3-5 Days Forms: Work/School Release Form(ED) Time of Disposition: 12:35
[2022-05-25 13:17] VITALS: BP 166/75
== END 2022-05-25 13:17 | disposition home or self-care (01) ==
LOC: ED 07:37
DX: N39.0 Urinary tract infection, site not specified (principal); E11.9 Type 2 diabetes mellitus without complications; I10 Essential (primary) hypertension; K21.9 Gastro-esophageal reflux disease without esophagitis; M19.90 Unspecified osteoarthritis, unspecified site; G43.909 Migraine, unspecified, not intractable, without status migrainosus; D57.1 Sickle-cell disease without crisis; Z87.891 Personal history of nicotine dependence; Z79.899 Other long term (current) drug therapy
CPT/HCPCS: 81001; 82962; 96372; 99283; J0696; J3490